=== PATIENT | male | born 1950 | race African-American/Black ===

== ENCOUNTER 2018-08-29 12:00 | Inpatient (IN) | payer MEDICARE, MEDICAID ==
--- NOTE | 2018-08-29 12:27 | ED ---
Respiratory - HPI Summary HPI Summary: This patient is a 68 year old M presenting to ED with a chief complaint of SOB since 2 days ago. The patient rates the pain 0/10 in severity. Symptoms aggravated by nothing. Symptoms alleviated by nothing. Patient reports productive cough, chest congestion, and CP secondary to cough. He is not sure if he had a fever.He was previously dx with the flu. Patient did not get his flu shot. PMHx of HTN (did not take his medications this morning). - History of Current Complaint Chief Complaint: EDShortnessOfBreath Stated Complaint: SOB Time Seen by Provider: 08/29/18 12:08 Hx Obtained From: Patient Onset/Duration: Sudden Onset, Lasting Days - since 2 days ago, Still Present Timing: Constant Current Severity: None Pain Intensity: 0 Character: Cough (Productive) Aggravating Factor(s): Nothing Alleviating Factor(s): Nothing Associated Signs and Symptoms: Fever, SOB, Chest Pain with Cough - Allergy/Home Medications Allergies/Adverse Reactions: Allergies Allergy/AdvReac Type Severity Reaction Status Date / Time ibuprofen [From Motrin] Allergy Agitation Verified 08/29/18 12:07 Home Medications: Home Medications Lisinopril/HCTZ 20/25(NF) [Zestoretic 20/25(NF)] 1 tab PO DAILY 08/29/18 [ History Confirmed 08/29/18] Prazosin CAP* [Minipress CAP*] 1 mg PO DAILY 08/29/18 [History Confirmed ] PMH/Surg Hx/FS Hx/Imm Hx Endocrine/Hematology History: Reports: Other Endocrine/Hematological Disorders - (right) adrenal mass Cardiovascular History: Reports: Hx Hypertension - meds Respiratory History: Reports: Hx Sleep Apnea - evaluation for 12/2013, Other Respiratory Problems/Disorders - ex-smoker GI History: Reports: Other GI Disorders - hx inguinal hernia repair History: Reports: Other Problems/Disorders - hx UTI's Neurological History: Reports: Other Neuro Impairments/Disorders - 05/2011 bilateral subdural hematoma evac d/t trauma Psychiatric History: Reports: Other Psychiatric Issues/Disorders - hx cocaine abuse - Surgical History Surgery Procedure, Year, and Place: 06/2011- (left) inguinal hernia repair, ( right) inguinal hernia repair as a child. Ozone hole surgery d/t subdural hematoma. HIP REPLACEMENT Infectious Disease History: No Infectious Disease History: Denies: History Other Infectious Disease, Traveled Outside the [place] in Last 30 Days - Family History Known Family History: Positive: Hypertension, Diabetes - Social History Alcohol Use: Occasionally Substance Use Type: Reports: None Smoking Status (MU): Current Every Day Smoker Type: Cigarettes, Cigars Amount Used/How Often: 1/2 PPD Review of Systems Positive: Chest Pain - secondary to cough Positive: Shortness Of Breath, Cough - productive, Other - chest congestion All Other Systems Reviewed And Are Negative: Yes Physical Exam - Summary Physical Exam Summary: VITAL SIGNS: Reviewed. GENERAL: Patient is a well-developed and nourished MALE who is lying comfortable in the stretcher. Patient is not in any acute respiratory distress. HEAD AND FACE: No signs of trauma. No ecchymosis, hematomas or skull depressions. No sinus tenderness. EYES: PERRLA, EOMI x 2, No injected conjunctiva, no nystagmus. EARS: Hearing grossly intact. Ear canals and tympanic membranes are within normal limits. MOUTH: Oropharynx within normal limits. NECK: Supple, trachea is midline, no adenopathy, no JVD, no carotid bruit, no c- spine tenderness, neck with full ROM. CHEST: Symmetric, no tenderness at palpation LUNGS: No wheezing or crackles. Decreased breath sounds on the left. CVS: Regular rate and rhythm, S1 and S2 present, no murmurs or gallops appreciated. ABDOMEN: Soft, non-tender. No signs of distention. No rebound no guarding, and no masses palpated. Bowel sounds are normal. EXTREMITIES: FROM in all major joints, no edema, no cyanosis or clubbing. NEURO: Alert and oriented x 3. No acute neurological deficits. Speech is normal and follows commands. SKIN: Dry and warm Triage Information Reviewed: Yes Vital Signs On Initial Exam: Initial Vitals Temp Pulse Resp BP Pulse Ox 99.2 F 88 20 187/104 96 08/29/18 12:02 08/29/18 12:02 08/29/18 12:02 08/29/18 12:02 08/29/18 12:02 Vital Signs Reviewed: Yes Diagnostics - Vital Signs Vital Signs Temp Pulse Resp BP Pulse Ox 08/29/18 12:02 99.2 F 88 20 187/104 96 - Laboratory Result Diagrams: 08/29/18 12:39 08/29/18 12:39 Lab Statement: Any lab studies that have been ordered have been reviewed, and results considered in the medical decision making process. - Radiology CXR Radiology Interpretation Completed By: Radiologist Summary of Radiographic Findings: Alveolar consolidation at the LEFT mid to lower lung zone with moderately large partially loculated appearing LEFT pleural effusion. The differential includes pneumonia with parapneumonic effusion as well as central mass with postobstructive pneumonitis. Consider contrast-enhanced CT for further assessment. Dr. Alcaraz has reviewed this radiology report. - EKG 1232 Cardiac Rate: NL - 83 BPM EKG Rhythm: Sinus Rhythm Summary of EKG Findings: No ST elevations, normal axis. Disposition - Course Assessment/Plan: Patient is a 68-year-old male who presents to the emergency department with a chief complaint of having shortness of breath and productive cough. The patients reports that he is been having fevers. In the ED course the patient is tachycardic and hypertensive. Patient had a temperature 100.1. Patient was given IV fluids. Blood work without any significant abnormality except for glucose of 108, CK-MB of 6.9 and CRP of 14.58. Influenza A and B is negative. CXR IMPRESSION: #. Alveolar consolidation at the LEFT mid to lower lung zone with moderately large. partially loculated appearing LEFT pleural effusion. #. The differential includes pneumonia with parapneumonic effusion as well as central mass with postobstructive pneumonitis. Consider contrast- enhanced CT for further assessment. Hest CT impression: #. The primary abnormality is a large grossly water density LEFT pleural effusion with severe compressive atelectasis of the LEFT lung. No compelling evidence for pneumonia. No pulmonary or endobronchial mass evident however atelectasis limits assessment. #. Further interval enlargement of RIGHT adrenal mass concerning for neoplasm. A primary adrenal lesion is favored over a metastasis given absence of additional mass lesions within the [id number]. In the ED course the patient was placed on Zosyn. At this point I discussed my physical exam and findings with Dr. Segura is feeling somewhat accepted patient for admission. At this point the patient is hemodynamically stable alert and oriented 3. - Differential Dx - Cardiopulmonary Differential Diagnoses - Cardiopulmonary: Other - PNA, pleural effusion - Diagnoses Provider Diagnoses: PNA (pneumonia), Pleural effusion, Adrenal mass - Physician Notifications Discussed Care Of Patient With: Avery Segura Time Discussed With Above Provider: 13:40 Instructed by Provider To: Admit As Inpatient Discharge - Sign-Out/Discharge Documenting (check all that apply): Patient Departure - admit Patient Received Moderate/Deep Sedation with Procedure: No - Discharge Plan Condition: Stable Disposition: ADMITTED TO [facility] - Billing Disposition and Condition Condition: STABLE Disposition: Admitted to [facility] - Attestation Statements Document Initiated by Jebe: Yes Documenting Scribe: Crescencio Eaton Provider For Whom Scribe is Documenting (Include Credential): Truong Alcaraz MD Scribe Attestation: Crescencio Willson, scribed for Truong Alcaraz MD on 08/29/18 at 1847. Scribe Documentation Reviewed: Yes Provider Attestation: The documentation as recorded by the Crescencio prado accurately reflects the service I personally performed and the decisions made by Truong brooks MD Status of Scribe Document: Viewed
[2018-08-29] MEDS ORDERED: Metoprolol Tartrate TAB* 25 MG PO ONE (12:40)
[2018-08-29] MEDS ORDERED: cloNIDine TAB* 0.1 MG PO ONE (12:40)
[2018-08-29 12:49] LABS: Hematocrit 42 % (42-52); Hemoglobin 13.7 g/dl (14.0-18.0); Mean Corpuscular HGB Conc 33 g/dl (31-36); Mean Corpuscular Hemoglobin 29 pg (27-31); Mean Corpuscular Volume 88 fL (80-94); Mean Platelet Volume 8.7 fL (7.4-10.4); Platelet Count 209 10^3/ul (150-450); Red Blood Count 4.77 10^6/ul (4.00-5.40); Red Cell Distribution Width 15 % (10.5-15); White Blood Count 5.1 10^3/ul (3.5-10.8)
[2018-08-29 12:54] LABS: Influenza A Molecular NEGATIVE (Negative); Influenza B Molecular NEGATIVE (Negative)
[2018-08-29] MEDS ORDERED: Piperacillin/Tazobac ADVAN(*) 3.375 GM in NS 0.9% 100 ML* 100 ML IVPB ONE (12:58)
[2018-08-29 13:07] LABS: Albumin 4.1 g/dL (3.2-5.2); Albumin/Globulin Ratio 1.3 (1-3); BUN/Creatinine Ratio 16.5 (8-20); C Reactive Protein 14.58 mg/L (<8.01); EGFR African American 108.1 (>60); EGFR Non-African American 89.4 (>60); Globulin 3.2 g/dL (2-4); Potassium 3.9 mmol/L (3.5-5.0); Total Bilirubin 0.6 mg/dL (0.2-1.0); Total Protein 7.3 g/dL (6.4-8.9)
[2018-08-29 13:08] LABS: Troponin I 0.01 ng/mL (<0.04)
[2018-08-29 13:09] LABS: ABS Basophils 0.1 10^3/ul (0-0.2); ABS Eosinophils 0.1 10^3/ul (0-0.6); ABS Lymphocytes 1.6 10^3/ul (1.0-4.8); ABS Monocytes 0.7 10^3/ul (0-0.8); ABS Neutrophils 2.6 10^3/ul (1.5-7.7); ABS Nucleated RBC 0 10^3/ul; Eosinophil % 2.6 %; Large Platelets Present; Lymphocyte % 31.9 %; Nucleated Red Blood Cells % 0.2
[2018-08-29 13:10] LABS: CKMB ng/mL 6.9 ng/mL (0.6-6.3)
[2018-08-29] MEDS ORDERED: Iohexol 300* (CONTRAST) 10 ML SDV IV ONE (13:46)
[2018-08-29] MEDS ORDERED: Benzonatate CAP* 100 MG PO PRN (14:02)
[2018-08-29] MEDS ORDERED: Acetaminophen TAB* 325 MG PO PRN (14:02)
[2018-08-29] MEDS ORDERED: Ondansetron INJ* 2 MG/ML VIAL IV PRN (14:02)
[2018-08-29] MEDS ORDERED: Lisinopril/HCTZ 20/25(NF) TAB PO SCH (14:08)
[2018-08-29] MEDS ORDERED: Vancomycin per Pharmacy* NOTE FOLLOW UP SCH (15:00)
[2018-08-29] MEDS ORDERED: Hydrochlorothiazide TAB* 25 MG PO SCH (16:00)
[2018-08-29] MEDS ORDERED: Vancomycin(*) 1,500 MG in NS 0.9% 250 ML* 250 ML IVPB ONE (16:00)
[2018-08-29 16:14] LABS: Body Fluid Source Pleural Fluid
[2018-08-29 17:08] LABS: Body Fluid Mono 7 %
[2018-08-29 17:42] LABS: Urine Appearance Clear; Urine Bacteria Absent (Absent); Urine Bilirubin Negative (Negative); Urine Blood Negative (Negative); Urine Color Yellow; Urine Glucose Negative (Negative); Urine Ketones Negative (Negative); Urine Nitrite Negative (Negative); Urine Protein Negative (Negative); Urine Red Blood Cell Trace(0-2/hpf) (Absent); Urine Specific Gravity 1.049 (1.010-1.030); Urine Squamous Epithelial Cell Present (Absent); Urine Urobilinogen Negative (Negative); Urine White Blood Cell 1+(6-10/hpf) (Absent)
[2018-08-29] MEDS: Prazosin CAP* 1 MG PO SCH (18:25)
[2018-08-29] MEDS: Lisinopril TAB* 10 MG PO SCH (18:25)
--- NOTE | 2018-08-29 21:55 | PN ---
Hospitalist Progress Note Date of Service: 08/29/18 Thoracentesis performed on patient by Dr Seo. Large volume grossly bloody fluid removed. Concern for TB, Placed on Airborne precautions and AFB stain on pleural fluid and sputum ordered when available. Quantiferon Gold Testing ordered. Patient's Father of Mesothelioma, Patient has no known exposure to asbestos. Discussed with Dr. Seo who recommended against Chest Tube until TB ruled out. Repeat CXR shows decreased size in Pleural Effusion and atalectasis. Continue antibiotics pending ID consultation.
[2018-08-29] MEDS ORDERED: Heparin VIAL(*) 5000 UNITS/ML VIAL (FIVE THOUSAND) SUBCUT SCH (22:00)
[2018-08-29] MEDS: cefTRIAXone(*) 1 GM in NS 0.9% 50 ML* 50 ML IVPB SCH (22:08)
[2018-08-29] MEDS: guaiFENesin ER TAB 600 MG PO SCH (22:09)
[2018-08-29] MEDS: Metoprolol Tartrate TAB* 25 MG PO SCH (22:09)
--- NOTE | 2018-08-29 23:36 | HP ---
CC: Dr. Prudence Greer; Dr. Chika Seo * ADMISSION HISTORY AND PHYSICAL: DATE OF ADMISSION: 08/29/18 PRIMARY CARE PROVIDER: Dr. Prudence Greer. MY ATTENDING WHILE IN THE HOSPITAL: Dr. Avery Segura.* (DICTATED BY SOURAV WATTS) CONSULTING TELECOMMUNICATIONS SPECIALIST: Dr. Chika Seo. CHIEF COMPLAINT: Shortness of breath x3 days. HISTORY OF PRESENT ILLNESS: Mr. Ennis is a 68-year-old male with past medical history significant for pheochromocytoma with known adrenal mass, history of positive tuberculin skin test in the with treatment for latent tuberculosis , hypertension, who presents to the emergency department with severe shortness of breath, particularly with exertion as well as feeling of chest fullness since the evening of 08/26/18. The patient approximately a month ago had a flu- like syndrome with body aches, wheezing, and shortness of breath , which self resolved. The patient did not have treatment for this nor did he have his flu shot for this year. The patient felt better approximately a week between when he had the flu and when he began to develop other symptoms. The patient over that time period has lost approximately 10 pounds, but he states his weight fluctuates due to his active work schedule. The patient does get the flu relatively frequently. The patient has generally been in his normal state of health. The patient was incarcerated in the . The patient does travel also frequently around the [facility] and recently to [place] for work. The patient has a known pheochromocytoma. The patient has been seen by [employer] consultant, recommended medical management and he has been referred for excision previously; however, he has declined this given a distrust for the medical system. The patient had been having a cough for the last 2 days, which is intermittently productive of clear sputum. No hemoptysis or color material in his sputum. The patient was previously treated with INH for 1 year in the . The patient has had some issues over the past 2 days with fevers, chills , night sweats. The patient has a history of recurrent UTIs but has never had this evaluated by urologist. The patient did not take his blood pressure medication this morning and has high blood pressure but no chest pain. The patient states that his main complaint that brought him to the hospital was that whenever he leans forward, he feels a pressure on the left upper quadrant of his abdomen. In the emergency department, the patient was significantly hypertensive with blood pressures high at 200/138. The patient was afebrile, nontachycardic, and nonhypoxic. The patient had a relatively normal laboratory data; however, his chest x-ray showed a large left-sided pleural effusion and a followup chest CT showed almost total obscuration of his left lung without compelling evidence for pneumonia or mass as well as continued interval enlargement of his right adrenal mass compared to CT from 2016. The patient had known small pulmonary nodules on CT in 2016. Due to the concern for large pulmonary mass as well as possible pneumonia, we were asked to evaluate the patient for admission to the hospital. PAST MEDICAL HISTORY: Pheochromocytoma, history of traumatic subdural hematoma drainage in 2010, recurrent UTIs, history of cocaine abuse, history of treated latent tuberculosis in the , hypertension. PAST SURGICAL HISTORY: Hernia repair in 2012 as a child, colonoscopy in 2013, hip replacement. MEDICATIONS: The patient does not take any medications. On the day of admission: 1. Prazosin 1 mg p.o. daily. 2. Lisinopril and hydrochlorothiazide 20/25 one tab p.o. daily. 3. Naproxen 2 tabs p.o. daily. 4. The patient was also prescribed amlodipine per his primary care provider's notes, but he has not endorsed taking this. ALLERGIES: IBUPROFEN. FAMILY HISTORY: The patient's mother of complications from pneumothorax. The patient's father of mesothelioma. The patient had 6 siblings; a brother who of dementia related to chronic head trauma, a brother who of an RI in , a brother who of cirrhosis, a sister who of breast cancer, and a sister who of CHF. The patient has 1 remaining sibling who is alive and well. SOCIAL HISTORY: The patient has a [id number] history of smoking, but quit 13 years before this evaluation. The patient drinks 1 to 2 beers a week. The patient has a history of cocaine abuse. The patient denies other illicit drug use or recent drug use. 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 The patient was incarcerated in the . The patient is not , has 1 daughter. REVIEW OF SYSTEMS: A 14-point review of systems was reviewed and is negative except as above in the HPI. PHYSICAL EXAMINATION GENERAL: The patient is a 68-year-old male who appears stated age, sitting comfortably in bed, in no acute distress. VITAL SIGNS: At the time of evaluation, temperature 98.4, pulse rate 87, respiratory rate 19, oxygen saturation 94% on room air, blood pressure 194/117. HEENT: Head: Normocephalic, atraumatic. Sclerae anicteric. No conjunctival injection. Oral mucosa is moist. No pharyngeal erythema, discharge, or exudate. NECK: Supple, nontender. No lymphadenopathy. No carotid bruits auscultated. No JVD. RESPIRATORY: No adventitious lung sounds in the right lung. Absent breath sounds in the left lung except for the upper lobe where they are diminished with slight rhonchi. CARDIAC: Regular rate and rhythm. No clicks, murmurs, gallops, or rubs. Pulses 2+ in the bilateral dorsalis pedis, posterior tibial, and radial areas. ABDOMEN: Soft, nontender, nondistended. Bowel sounds present. Normoactive in all 4 quadrants. No hepatosplenomegaly. No abdominal bruits auscultated. No hepatojugular reflex. GENITOURINARY: No suprapubic or CVA tenderness. NEURO: Cranial nerves II through XII intact. No focal deficits. Alert and oriented x3. PSYCHIATRIC: Pleasant and cooperative. SKIN: Clean, dry, intact. No rash. DIAGNOSTIC STUDIES/LAB DATA: White blood cell count 5.1, hemoglobin 13.7, hematocrit 42, platelet count 209. Sodium 139, potassium 3.9, chloride 106, carbon dioxide 24, anion gap 9, BUN 14, creatinine 0.85, glucose 108. Lactic acid 0.9, calcium 9.0. Bilirubin 0.6, AST 36, ALT 22, alkaline phosphatase 67. Creatine kinase 189, CK-MB 6.9. Troponin I 0.01. CRP 14.08. BNP 17. Protein 7.3, albumin 3.4, globulin 3.2. Influenza A and B negative. Chest x-ray shows alveolar consolidation in the left mid to lower lung zones with moderately large loculated appearing left pleural effusion. Differential includes pneumonia with parapneumonic effusions, central mass with postobstruction pneumonitis. Consider contrast enhanced CT for further assessment. Electrocardiogram shows normal sinus rhythm, left axis deviation, no ST segment elevation or depression, unremarkable T waves, possible left atrial enlargement compared to previous exam in 2011. There is no significant difference. Chest CT read as primary abnormality is grossly water density of the left pleural effusion with severe compression atelectasis to the left lung. No compelling evidence for pneumonia. No pulmonary or endobrachial mass evident; however, atelectasis limits assessment further, interval enlargement of the right adrenal mass concerning for neoplasm or primary adrenal lesions less likely metastasis given the absence of additional mass lesions within the field of view. ASSESSMENT AND PLAN/IMPRESSION: Mr. Ennis is a 68-year-old male with past medical history significant for pheochromocytoma, history of latent tuberculosis , status post treatment, high blood pressure, who recently had the flu and now presents with a large pleural effusion with fever and chills as well as cough and shortness of breath. The patient will be admitted to the hospital for concern for pneumonia versus malignancy versus transudative effusion. The patient will be admitted to the hospital for antibiotic treatment and further evaluation of his pleural effusion. 1. Shortness of breath, pleural effusion. The patient has a recent history of flu and is thereby predisposed to bacterial pneumonia, particularly with methicillin- resistant Staphylococcus aureus. We will await study. The patient was given Zosyn while in the hospital. We will give vancomycin and start the patient on ceftriaxone and vancomycin given the patient's lack of compelling evidence for pneumonia and this can likely be discontinued pending Gram stain and fluid analysis on the pleural effusion. We will also send this for acid-fast testing as the patient will also obtain a Gram stain, which will sent for acid-fast testing. The patient has a history of latent tuberculosis which was treated, but given that he was incarcerated, the patient may have had a multi-drug resistant organism. Infectious disease consultation may be indicated if there is no further concern for tuberculosis after pleural fluid analysis. Given the patient's adrenal tumor and pleural effusion as well as known pulmonary nodules, there is concern that this may be a malignant effusion. Again, pleural fluid analysis is pending and further evaluation will be based on this, but oncology and endocrinology evaluation may be indicated. The patient has no sign of heart failure or cirrhosis. His kidney function and liver function tests are normal. There is a low suspicion this is a transudative effusion, but further evaluation including a transthoracic echocardiogram may be indicated if that is the case. 2. Pheochromocytoma, hypertension: The patient is currently on prazosin. The patient was previously seen by an [employer] consultant, who recommended beta blockade if the patient had continuing issues with his high blood pressure, which he has been. The patient is on prazosin, hydrochlorothiazide, and lisinopril. We will resume these as he has not taken them yet today and add on metoprolol, which he was given a low dose of in the emergency department. The patient's blood pressure will be monitored closely for overcorrection. The patient should be seen in consultation by Endocrinology if he continues to be hypertensive and will need outpatient evaluation for resection of this tumor. 3. History of recurrent urinary tract infection: Urinalysis is pending. It is unlikely to be related to the patient's presentation. The patient has no urinary symptoms. 4. DVT prophylaxis: After the patient's procedure, assume there is no hemothorax, we will treat the patient with heparin subcu. 5. FEN: The patient will have a heart healthy diet without caffeine and has no indication for fluids. 6. Disposition: The patient is admitted inpatient to the hospital for evaluation of pleural effusion. TIME SPENT: Approximately 90 minutes was spent on the admission of this patient , 30 of which was spent [id number] with the patient, obtaining history and physical and discussion of treatment plan. The plan was discussed with my attending Dr. Avery Segura, and he is in agreement. SOURAV WATTS [id number]/CPS #: [id number] MTDD
--- NOTE | 2018-08-29 23:52 | CONS ---
PULMONARY CONSULTATION REPORT: DATE OF CONSULT: 08/29/18 REQUESTED BY: SOURAV De Jesus. REASON FOR CONSULTATION: Evaluation of pleural effusion. HISTORY OF PRESENT ILLNESS: The patient is a 68-year-old male, former smoker, with a history of latent TB, who presents to the emergency room for evaluation of worsening shortness of breath. The patient reports not feeling well for the past month. He has been having flu-like illness and reports sick contacts. The patient has been having worsening shortness of breath that gradually worsened and he decided to come into the emergency room for further evaluation. The patient also reports productive cough with minimal sputum production. The patient also reports feeling congested in the chest and crackly in the left chest. The patient also reports chest pain as a result of the cough. The patient also reports loss of weight and appetite recently. The patient reports poor oral intake. The patient reports some night sweats, which he attributed to having the room very cold. The patient reports no contacts with TB recently. His last travel was to [place]. 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 Denies any occupational exposures. History of cocaine abuse in the past, has been abstinent for many years. The patient had a chest x-ray in the emergency room. I have personally reviewed chest x-ray, which showed evidence of large left pleural effusion. The patient had a CT scan of the chest for further evaluation. I personally reviewed CT scan of the chest. The patient with large left pleural effusion with compressive atelectasis. No obvious endobronchial lesions were noted. No significant mediastinal or hilar adenopathy was noted. He was noted to have right adrenal mass, which has increased in size from before. He has a history of pheochromocytoma. PAST MEDICAL HISTORY: 1. Right adrenal mass, diagnosed as pheochromocytoma. 2. Hypertension. 3. Sleep apnea. 4. Inguinal hernia repair in the past. 5. History of prior tobacco and cocaine abuse. 6. Subdural hematoma in 2010. 7. Left inguinal hernia and right hernia repair in 2011. 8. Bur hole surgery for subdural hematoma. 9. Hip replacement. ALLERGIES: IBUPROFEN. FAMILY HISTORY: Hypertension, diabetes, mesothelioma in father SOCIAL HISTORY: Former smoker, quit many years ago, [id number] smoking history. Occasional alcohol intake. Previous cocaine abuse, has not been using recently. REVIEW OF SYSTEMS: All 14-systems reviewed and as per HPI. PHYSICAL EXAM: The patient in bed, in no apparent distress. Vital Signs: Temperature 98.4, pulse 62 beats per minute, respiratory rate 21 per minute, O2 sat 98% on room air, blood pressure 159/111. HEENT: Pupils are equal and reactive to light. Mucous membranes moist. Lungs: Significantly diminished air entry on the left side. Cardiovascular: S1, S2 present, regular. Abdomen : Soft, nontender, nondistended. Bowel sounds present. Extremities: Normal range of motion. Skin: No rash or bruises. Neuro: Alert, awake, oriented. No focal deficits. DIAGNOSTIC STUDIES/LAB DATA: Hemoglobin 13.7, hematocrit 42, WBC count 5.1, platelet count 209. Sodium 139, potassium 3.9, chloride 106, bicarb 24, BUN 14 , creatinine 0.85, glucose 108, CRP 14.58. BNP within normal limits. LFTs within normal limits. Total protein within normal limits. Influenza A and B negative. Chest x-ray and CT scan of the chest as described above in HPI. IMPRESSION/RECOMMENDATIONS: 68-year-old male with a history of latent tuberculosis, incarcerated in the past, was treated for latent tuberculosis with INH for 9 months, with nonspecific symptoms recently with weight loss, loss of appetite, night sweats, low-grade fevers, shortness of breath and cough , found to have a large left pleural effusion. Under ultrasound evaluation, he is noted to have dense effusion, which appeared to be very cellular. Performed thoracentesis at bedside with removal of 1800 mL of dark bloody fluid. The patient tolerated the procedure well. The fluid is grossly bloody in appearance. The patient reported minor trauma to the left side recently. Did not get any evaluation. Unclear etiology of the effusion, infectious versus neoplastic. Tuberculosis in differential. Malignancy also very likely, mesothelioma or primary lung cancer in the differential. The patient's father has a history of mesothelioma. The patient does not give an exposure to asbestos. The patient is empirically started on broad-spectrum antibiotics. He is under respiratory isolation for possible tuberculosis. He will also have sputum sent out for AFB. I have sent pleural fluid for all the testing including adenosine deaminase and AFB cultures. Cytology was also ordered on pleural fluid. Will obtain chest x-ray to evaluate for residual pleural fluid and to rule out pneumothorax. The patient appears comfortable after the procedure and reports improvement in breathing. Will get infectious disease evaluation. Further recommendations would depend upon the pleural fluid characteristics. Thank you for allowing me to participate in the care of your patient. Above recommendations were discussed with SOURAV De Jesus. [id number]/[facility] #: [id number] ALDA
--- NOTE | 2018-08-30 04:00 | PRO ---
THORACENTESIS REPORT: DATE OF PROCEDURE: 08/29/18 PROCEDURE PERFORMED: Ultrasound-guided thoracentesis on the left side. PREPROCEDURAL DIAGNOSIS: Large left pleural effusion. ANESTHESIA: Local anesthesia with 1% lidocaine. PROCEDURE IN DETAIL: Informed consent was obtained from the patient prior to the procedure after the risks and benefits were thoroughly explained. The patient was sitting up and leaning forwards. Time-out was performed and agreed on my attending staff prior to the procedure. Strict aseptic precautions and barrier techniques were utilized. CareFusion 5-Austrian thoracentesis catheter was utilized. Area was disinfected with chlorhexidine. Area was marked with ultrasound and was covered with a sterile drape. A CareFusion 5-Austrian thoracentesis catheter was utilized. 1% lidocaine was instilled between the ribs intradermally subcutaneously down into the pleural space taking precautions. A #11-scalpel blade was utilized to make stab incision. The 5- Austrian catheter was then inserted under manual suction taking precautions. Catheter was left in place and needle was removed. A 1800 mL of dark-bloody fluid was removed under manual suction. Catheter was then removed. Sterile Band -Aid was applied on to the area. The patient tolerated the procedure well. [id number]/[facility] #: [id number] [facility]'S HOSPITALLashonda
[2018-08-30] MEDS: Vancomycin(*) 1,250 MG in NS 0.9% 250 ML* 250 ML IVPB SCH ×2 (06:07→17:28)
[2018-08-30] MEDS: Prazosin CAP* 1 MG PO SCH (08:24)
[2018-08-30] MEDS: guaiFENesin ER TAB 600 MG PO SCH ×2 (08:24→21:29)
[2018-08-30] MEDS: Lisinopril TAB* 10 MG PO SCH (08:31)
[2018-08-30] MEDS: Metoprolol Tartrate TAB* 25 MG PO SCH ×2 (08:31→21:28)
[2018-08-30 10:57] LABS: Hematocrit 42 % (42-52); Hemoglobin 13.6 g/dl (14.0-18.0); Mean Corpuscular HGB Conc 33 g/dl (31-36); Mean Corpuscular Hemoglobin 29 pg (27-31); Mean Corpuscular Volume 88 fL (80-94); Mean Platelet Volume 8.8 fL (7.4-10.4); Platelet Count 213 10^3/ul (150-450); Red Blood Count 4.71 10^6/ul (4.00-5.40); Red Cell Distribution Width 16 % (10.5-15)
[2018-08-30 11:13] LABS: BUN/Creatinine Ratio 16.5 (8-20); Calcium 8.7 mg/dL (8.6-10.3); EGFR Non-African American 82.6 (>60); Magnesium 1.7 mg/dL (1.9-2.7)
[2018-08-30 11:14] LABS: ABS Basophils 0.1 10^3/ul (0-0.2); ABS Eosinophils 0.2 10^3/ul (0-0.6); ABS Lymphocytes 2.1 10^3/ul (1.0-4.8); ABS Monocytes 0.8 10^3/ul (0-0.8); ABS Nucleated RBC 0 10^3/ul; Eosinophil % 2.7 %; Large Platelets Present; Nucleated Red Blood Cells % 0.1
--- NOTE | 2018-08-30 16:53 | PN ---
Subjective Date of Service: 08/30/18 Interval History: Patient's breathing much better today. Denies chest pain. Never had active TB, but took 1 year INH for [facility] PPD in [facility]. Had lower thoracic back pain several weeks ago, PCP ordered CT scan, not completed. Has not had known phenochromocytoma removed due to other priorities w/ job. Family History: Unchanged from Admission Social History: Unchanged from Admission Past Medical History: Unchanged from Admission Objective Active Medications: Acetaminophen (Tylenol Tab*) 650 mg PO Q6H PRN PRN Reason: FEVER/PAIN Benzonatate (Tessalon Cap*) 100 mg PO BID PRN PRN Reason: COUGH Guaifenesin (Mucinex*) 1,200 mg PO BID [facility] Last Admin: 08/30/18 08:24 Dose: 1,200 mg Ceftriaxone Sodium 1 gm/ (Sodium Chloride) 50 mls @ 200 mls/hr IVPB Q24H [facility] Last Admin: 08/29/18 22:08 Dose: 200 mls/hr Vancomycin HCl 1,250 mg/ (Sodium Chloride) 250 mls @ 166.667 mls/hr IVPB Q12H [facility] Last Admin: 08/30/18 06:07 Dose: 166.667 mls/hr Lisinopril (Prinivil Tab*) 20 mg PO DAILY [facility] Last Admin: 08/30/18 08:31 Dose: 20 mg Metoprolol Tartrate (Lopressor Tab*) 12.5 mg PO Q12HR [facility] Last Admin: 08/30/18 08:31 Dose: 12.5 mg Ondansetron HCl (Zofran Inj*) 4 mg IV Q6H PRN PRN Reason: NAUSEA Prazosin HCl (Minipress Cap*) 1 mg PO DAILY [facility] Last Admin: 08/30/18 08:24 Dose: 1 mg Vital Signs - 8 hr 08/30/18 08/30/18 08/30/18 09:54 12:30 16:10 Temperature 36.4 C 36.7 C Pulse Rate 77 63 63 Respiratory 20 14 Rate Blood Pressure 153/79 146/79 154/89 (mmHg) O2 Sat by Pulse 96 97 Oximetry Oxygen Devices in Use Now: Nasal Cannula Appearance: looks well Eyes: No Scleral Icterus Ears/Nose/Mouth/Throat: Clear Oropharnyx Neck: NL Appearance and Movements; NL JVP Respiratory: Symmetrical Chest Expansion and Respiratory Effort, - - absent BS LT base Cardiovascular: NL Sounds; No Murmurs; No JVD, RRR Abdominal: NL Sounds; No Tenderness; No Distention Lymphatic: No Cervical Adenopathy Skin: No Rash or Ulcers Neurological: Alert and Oriented x 3 Lines/Tubes/Other Access: Clean, Dry and Intact Peripheral IV Nutrition: Taking PO's Result Diagrams: 08/30/18 10:49 08/30/18 10:49 Additional Lab and Data: Laboratory Tests 08/29/18 08/29/18 08/29/18 12:39 12:42 15:30 B-Natriuretic Peptide 17 Fluid Source Pleural fluid Fluid Volume 10 Fluid Color Red Fluid Appearance Bloody Fluid WBC 1035 Fluid RBC [id number] Fluid Tot Cell Count 100 Fluid Neutrophils 21 Fluid Lymphocytes 62 Fluid Monocytes 7 Fluid Eosinophils 10 Influenza A (Rapid) Negative Influenza B (Rapid) Negative 08/30/18 10:49 Magnesium 1.7 L Microbiology and Other Data: Microbiology 08/29/18 13:45 Aerobic Blood Culture - Preliminary Blood Venous No Growth Day 1 Anaerobic Blood Culture - Preliminary No Growth Day 1 08/29/18 12:39 Aerobic Blood Culture - Preliminary Blood Venous No Growth Day 1 Anaerobic Blood Culture - Preliminary No Growth Day 1 08/29/18 15:30 Gram Stain - Final Pleural Fluid Body Fluid Culture - Preliminary No Growth Day 1 08/29/18 17:30 Legionella Urinary Antigen - Final Urine Negative Legionella Antigen Streptococcus pneumoniae Ag Screen - Final Negative S. pneumo Antigen 08/29/18 15:30 Acid Fast Bacilli Smear - Final Body Fluid - Pulmonary 08/30/18 04:30 Nasal Screen MRSA (PCR) - Final Nasal Mrsa Not Detected 08/29/18 12:27 Influenza Types A,B Antigen - Final Nasopharyngeal Specimen received for Influenza A/B Molecular testing Diagnostic Imaging: Repeat CXR: decreased effusion. Assess/Plan/Problems-Billing Assessment: 68 year old admitted with dyspnea, large bloody LT pleural effusion - Patient Problems (1) Pleural effusion Current Visit: Yes Status: Acute Priority: High Code(s): J90 - PLEURAL EFFUSION, NOT ELSEWHERE CLASSIFIED SNOMED Code(s): 96538390 Comment: -Effusion was bloody, does not appear to be transudate -Differential includes TB, parapneumonic effusion, malignancy. -Will continue airborne precautions and await Quantiferon, Sputum AFB, cultures from fluid -Continue vancomycin and ceftriaxone for CAP, post-flu staph -Will consult with ID tomorrow. (2) Pheochromocytoma Current Visit: Yes Status: Acute Priority: Medium Code(s): D35.00 - BENIGN NEOPLASM OF UNSPECIFIED ADRENAL GLAND SNOMED Code(s): 724904788 Comment: -Blood pressure in tolerable range -discussed barriers to care with patient (3) DVT prophylaxis Current Visit: Yes Status: Acute Priority: Low Code(s): DTG6259 - SNOMED Code(s): 207718810 Comment: Will start SCDs Status and Disposition: Inpatient, requires respiratory isolation
[2018-08-30] MEDS: cefTRIAXone(*) 1 GM in NS 0.9% 50 ML* 50 ML IVPB SCH (17:08)
[2018-08-31] MEDS: Vancomycin(*) 1,250 MG in NS 0.9% 250 ML* 250 ML IVPB SCH ×2 (05:00→17:50)
[2018-08-31] MEDS ORDERED: hydrALAZINE IV* 20 MG/ML VIAL IV SLOW PU ONE (05:10)
[2018-08-31] MEDS: guaiFENesin ER TAB 600 MG PO SCH ×2 (08:05→22:45)
[2018-08-31] MEDS: Prazosin CAP* 1 MG PO SCH ×2 (08:08→22:45)
[2018-08-31] MEDS: Metoprolol Tartrate TAB* 25 MG PO SCH ×2 (08:08→22:44)
[2018-08-31] MEDS: Lisinopril TAB* 10 MG PO SCH (08:08)
--- NOTE | 2018-08-31 16:08 | CONS ---
CONSULTATION REPORT: DATE OF ADMISSION: 08/29/18 DATE OF CONSULT: 08/31/18 PRIMARY CARE PROVIDER: Dr. Prudence Greer. PROVIDER REQUESTING CONSULTATION: Dr. Avery Segura. CONSULTING SERVICE: Infectious Disease. ATTENDING PHYSICIAN: Dr. Finn Lopes * (dictated by Karmen Quintanilla NP). REASON FOR CONSULT: Large bloody pleural effusion. ASSESSMENT: 1. Large pleural effusion. The differential includes tuberculosis or malignancy. I have a low suspicion for this being tuberculosis as he was treated for latent TB in the past. He has urine antigens for legionella and S pneumoniae that were negative. Two acid-fast bacilli smears that have been negative. His sputum culture is pending and blood cultures with no growth on day 1 and day 2. Influenza A and B negative. He reports that his cough is minimal and mostly resolved. 2. Latent tuberculosis, treated with INH in the . 3. Pheochromocytoma with known adrenal mass. 4. Hypertension. PLAN: Continue to follow with the cytology for now. Continue vancomycin and ceftriaxone while we await final cytology. HISTORY OF PRESENT ILLNESS: Mr. Ennis is a 68-year-old male with past medical history significant for pheochromocytoma with known adrenal mass, history of positive PPD in the and was treated for latent TB with INH, hypertension, who presented to the emergency room with complaints of severe shortness of breath particularly with exertion that had progressed over a 2-week time period. According to Mr. Ennis, he initially had a flu-like illness back in June and had been feeling fatigued, but taking it easy and feeling depressed as he has had many people in his life pass away recently, but felt as though this was improving. Two weeks ago, he reports being able to go on his typical walks, doing 2 flight of stairs for errands. He then noticed that he was having to stop after 1 flight of stairs to catch his breath before he could finish. He also was having difficulty walking to his errands that he would typically walk to. He denies any fevers, chills. He reports fatigue, shortness of breath with exertion worsened a few days ago, but has improved. He reports arthritic pain. He reported a history of a cough that overall is improving. He last traveled out of the country in 2015, at which time he went to [place]. He reports night sweats ongoing for a while, typically between 2 and 3 a.m., waking up feeling drenched. He reports a 10-pound weight loss in approximately the last 2 weeks. He reports this is due to a decreased appetite , but states that his appetite is improving. Due to his symptoms, he presented to the emergency room for further evaluation. While in the emergency room, he was reporting left upper quadrant abdominal pain when leaning forward. He was noted to be hypertensive, afebrile. No tachycardia, no hypoxia. He had relatively normal labs. He had a chest x-ray showing a large left-sided pleural effusion with a followup chest CT showing total obscuration of the left lung without compelling evidence for pneumonia or mass. He had interval enlargement of his right adrenal mass when compared to previous CT from 2016. He had known pulmonary nodules seen on CT scan in 2016. Due to his large effusion, he was admitted to the hospital. While in the hospital, he has been afebrile. No tachycardia, no real tachypnea. Blood pressures have been hypertensive. His labs have remained unremarkable. He had a thoracentesis revealing bloody pleural fluid, wbc's of 135, rbc's of 261,000. Influenza A and B negative. Blood cultures with no growth. He had an acid-fast bacilli smear showing no acid-fast bacilli present. He had urine antigens for legionella and S. pneumoniae that were negative and no growth in urine culture. He had a second acid-fast bacilli that was negative. His sputum Gram stain showing 4+ epithelial cells, 4+ neutrophils , 1+ nucleated cells, showing 4+ gram-positive cocci in chains resembling strep and 1+ gram-negative bacilli. Sputum culture pending at this time. PAST MEDICAL HISTORY: 1. Pheochromocytoma with known adrenal mass. 2. Positive PPD with treatment for latent TB in the . 3. Hypertension. 4. Traumatic subdural hematoma. 5. Sleep apnea. PAST SURGICAL HISTORY: 1. Status post tara hole drainage of subdural hematoma. 2. Status post repair of left inguinal hernia. 3. Status post left total hip arthroplasty. MEDICATIONS: Home medications include: 1. Naproxen 2 tablets by mouth daily. 2. Prazosin 1 mg by mouth daily. 3. Lisinopril/hydrochlorothiazide 20/25 one tablet by mouth daily. Hospital medications: 1. Acetaminophen 650 mg by mouth every 6 hours as needed for fever or pain. 2. Benzonatate 100 mg by mouth twice daily as needed for cough. 3. Ceftriaxone 1 g IV every 24 hours. 4. Mucinex 1200 mg by mouth twice daily. 5. Lisinopril 20 mg by mouth daily. 6. Metoprolol tartrate 12.5 mg by mouth every 12 hours. 7. Zofran 4 mg IV every 6 hours as needed for nausea. 8. Prazosin 1 mg by mouth daily. 9. Vancomycin 1250 mg IV every 12 hours. ALLERGIES: IBUPROFEN. FAMILY HISTORY: Brother with a history of NM, father with diabetes, father with a history of mesothelioma, and a sister with a history of breast cancer. No family history of recurrent infections. SOCIAL HISTORY: He drinks 1 to 2 beers weekly. Former smoker, quitting 13 years ago. Prior to that, he had a 40-year pack a day smoking history. He denies recreational drugs. REVIEW OF SYSTEMS: I performed a 10-point review of systems. All the pertinent positives and negatives are mentioned in the history of present illness. The remaining review of systems are negative. PHYSICAL EXAM: Vital Signs: Temperature 97.9, heart rate 58, respiratory rate 22, O2 sat 99% on room air, blood pressure 182/98. General Appearance: He is alert, appears to be in no acute distress. Head: Normocephalic, atraumatic. ENT: Pupils are equal and reactive to light. Extraocular movements are intact. Mucous membranes are moist. Neck: Supple. There is no lymphadenopathy noted. Neurologically, he is alert and oriented x4. Cranial nerves II through XII are grossly intact. Moves all extremities. Cardiovascular: Regular rate and rhythm. S1, S2 present. There are no murmurs, rubs, or gallops heard. Respiratory: Lung sounds are clear, but diminished. There is no accessory muscle use. Abdomen: Bowel sounds present. Abdomen is soft, nontender, nondistended. Extremities: No lower extremity edema. DP and PT pulses are 2+ and symmetric. Musculoskeletal: No clubbing or cyanosis noted. The patient exhibits good strength in all extremities. He is able to move all joints. Psychological: Calm and cooperative. Skin: There are no rashes or abnormalities seen. DIAGNOSTIC STUDIES/LAB DATA: White blood cell count 6.0, hemoglobin 13.6, hematocrit 42, platelet count 213. Sodium 137, potassium 4.0, chloride 105, CO2 27, BUN 15, creatinine 0.91, glucose 125. CRP 14.58. Please see impressions and recommendations outlined above. Thank you for asking us to see Mr. Ennis in consultation. TIME SPENT: Time spent for this consultation was approximately 45 minutes, greater than half of that was spent with the patient discussing medications, past medical history, the events leading up to his arrival today, and performing a physical examination. The case has been reviewed with the attending, Dr. Lopes, who agrees with the plan of care. Reviewed by CHERELLE OREILLY-C 09/06/18 1325 [id number]/[facility] #: [id number] Seen, examined, discussed with David Hurtado NP; I agree with her full note above. Impression/Recommendation: 1. Exudative pleural effusion, malignancy vs less likely infection; continue coverage for community acquired pneumonia while awaiting cytology. 2. History of treated latent TB which makes TB less likely unless he was re- infected MTDD
--- NOTE | 2018-08-31 16:40 | PN ---
Subjective Date of Service: 08/31/18 Interval History: Patient feels weak today. He has been up to shower. Eating OK. Has had visitors today. Denies MÉNDEZ. Family History: Unchanged from Admission Social History: Unchanged from Admission Past Medical History: Unchanged from Admission Objective Active Medications: Acetaminophen (Tylenol Tab*) 650 mg PO Q6H PRN PRN Reason: FEVER/PAIN Benzonatate (Tessalon Cap*) 100 mg PO BID PRN PRN Reason: COUGH Guaifenesin (Mucinex*) 1,200 mg PO BID [facility] Last Admin: 08/31/18 08:05 Dose: 1,200 mg Ceftriaxone Sodium 1 gm/ (Sodium Chloride) 50 mls @ 200 mls/hr IVPB Q24H [facility] Last Admin: 08/30/18 17:08 Dose: 200 mls/hr Vancomycin HCl 1,250 mg/ (Sodium Chloride) 250 mls @ 166.667 mls/hr IVPB Q12H [facility] Last Admin: 08/31/18 05:00 Dose: 166.667 mls/hr Lisinopril (Prinivil Tab*) 20 mg PO DAILY [facility] Last Admin: 08/31/18 08:08 Dose: 20 mg Metoprolol Tartrate (Lopressor Tab*) 12.5 mg PO Q12HR [facility] Last Admin: 08/31/18 08:08 Dose: 12.5 mg Ondansetron HCl (Zofran Inj*) 4 mg IV Q6H PRN PRN Reason: NAUSEA Pharmacy Consult (Vancomycin Per Pharmacy*) 1 note FOLLOW UP .VANC PER PHARMACY [facility] Pharmacy Profile Note (Vancomycin Trough Check) 1 note FOLLOW UP .ENTER TIME ONE Stop: 08/31/18 17:31 Prazosin HCl (Minipress Cap*) 1 mg PO DAILY [facility] Last Admin: 08/31/18 08:08 Dose: 1 mg Vital Signs - 8 hr 08/31/18 08/31/18 08/31/18 10:36 12:24 13:37 Temperature 36.9 C Pulse Rate 70 Respiratory 16 Rate Blood Pressure 152/90 167/106 150/94 (mmHg) O2 Sat by Pulse 99 Oximetry Oxygen Devices in Use Now: Nasal Cannula Appearance: alert, no distress Ears/Nose/Mouth/Throat: Clear Oropharnyx Neck: No Thyroid Enlargement, Masses Respiratory: Symmetrical Chest Expansion and Respiratory Effort, - - absent BS left base 1/2 way up Cardiovascular: NL Sounds; No Murmurs; No JVD Lymphatic: No Cervical Adenopathy Neurological: Alert and Oriented x 3 Lines/Tubes/Other Access: Clean, Dry and Intact Peripheral IV Nutrition: Taking PO's Result Diagrams: 08/30/18 10:49 08/30/18 10:49 Microbiology and Other Data: Microbiology 08/30/18 17:10 Sputum Gram Stain - Final 08/30/18 17:10 Respiratory - Sputum Acid Fast Bacilli Smear - Final 08/30/18 04:30 Nasal Nasal Screen MRSA (PCR) - Final Mrsa Not Detected 08/29/18 17:30 Urine Urine Culture - Final 08/29/18 17:30 Urine Streptococcus pneumoniae Ag Screen - Final Negative Legionella Antigen Negative S. pneumo Antigen No Growth (<1,000 CFU/mL) 08/29/18 15:30 Pleural Fluid Gram Stain - Final 08/29/18 15:30 Body Fluid - Pulmonary Acid Fast Bacilli Smear - Final 08/29/18 15:30 Pleural Fluid Body Fluid Culture - Preliminary No Growth Day 2 08/29/18 13:45 Blood Venous Aerobic Blood Culture - Preliminary 08/29/18 13:45 Blood Venous Anaerobic Blood Culture - Preliminary No Growth Day 2 No Growth Day 2 08/29/18 12:39 Blood Venous Aerobic Blood Culture - Preliminary 08/29/18 12:39 Blood Venous Anaerobic Blood Culture - Preliminary No Growth Day 2 No Growth Day 2 Assess/Plan/Problems-Billing Assessment: 68 year old admitted with dyspnea, large bloody LT pleural effusion - Patient Problems (1) Pleural effusion Current Visit: Yes Status: Acute Priority: High Code(s): J90 - PLEURAL EFFUSION, NOT ELSEWHERE CLASSIFIED SNOMED Code(s): 56041844 Comment: -Effusion was bloody, does not appear to be transudate -Differential includes TB, parapneumonic effusion, malignancy. -AFB negative X2 now, can d/c airborne precautions -Consult w/ ID appreciated (2) Pheochromocytoma Current Visit: Yes Status: Acute Priority: Medium Code(s): D35.00 - BENIGN NEOPLASM OF UNSPECIFIED ADRENAL GLAND SNOMED Code(s): 768743177 Comment: -Blood pressure in tolerable range -discussed barriers to care with patient (3) DVT prophylaxis Current Visit: Yes Status: Acute Priority: Low Code(s): GDO9097 - SNOMED Code(s): 550049717 Comment: Will start SCDs (4) Pneumonia Current Visit: Yes Status: Acute Priority: Medium Code(s): J18.9 - PNEUMONIA, UNSPECIFIED ORGANISM SNOMED Code(s): 364820191 Comment: -May have pneumonia w/ parapneumonic effusion -Will continue ceftriaxone and vanco until diagnosis established. Status and Disposition: Inpatient
--- NOTE | 2018-08-31 17:01 | PN ---
Progress Note - Progress Note Date of Service: 08/31/18 - Pulmf/u note Note: Pt seen and examined at bedside Pt reports feeling better other than fatigue.Has intermittent cough, not able to cough much phleghm. Active Medications Generic Name Dose Route Start Last Admin Trade Name Freq PRN Reason Stop Dose Admin Acetaminophen 650 mg 08/29/18 14:02 Tylenol Tab* PO Q6H PRN FEVER/PAIN Benzonatate 100 mg 08/29/18 14:02 Tessalon Cap* PO BID PRN COUGH Guaifenesin 1,200 mg 08/29/18 21:00 08/31/18 08:05 Mucinex* PO 1,200 mg BID GRECIA Administration Ceftriaxone Sodium 1 gm/ 50 mls @ 200 mls/hr 08/29/18 17:30 08/30/18 17:08 Sodium Chloride IVPB 200 mls/hr Q24H GRECIA Administration Vancomycin HCl 1,250 mg/ 250 mls @ 166.667 mls/hr 08/30/18 06:00 08/31/18 05: 00 Sodium Chloride IVPB 166.667 mls/hr Q12H GRECIA Administration Lisinopril 20 mg 08/29/18 16:00 08/31/18 08:08 Prinivil Tab* PO 20 mg DAILY GRECIA Administration Magnesium Oxide 400 mg 08/31/18 17:00 Magox 400 Tab* PO DAILY GRECIA Metoprolol Tartrate 12.5 mg 08/29/18 21:00 08/31/18 08:08 Lopressor Tab* PO 12.5 mg Q12HR GRECIA Administration Ondansetron HCl 4 mg 08/29/18 14:02 Zofran Inj* IV Q6H PRN NAUSEA Pharmacy Consult 1 note 08/29/18 15:00 Vancomycin Per Pharmacy* FOLLOW UP .VANC PER PHARMACY [facility] Pharmacy Profile Note 1 note 08/31/18 17:30 Vancomycin Trough Check FOLLOW UP 08/31/18 17:31 .ENTER TIME ONE Prazosin HCl 1 mg 08/31/18 21:00 Minipress Cap* PO BID GRECIA Vital Signs Temp Pulse Resp BP Pulse Ox 98.5 F 70 16 150/94 99 08/31/18 12:24 08/31/18 12:24 08/31/18 12:24 08/31/18 13:37 08/31/18 12:24 O/E: Pt in NAD HEENT; PERRLA, No JVD Lungs: Diminished air entry on lt side CVS: S1, S2+, regular Abd: Soft,BS+ Ext: Normal ROM Skin: No rash Neuro:nO focal deficits Laboratory Results - last 24 hr 08/29/18 08/29/18 12:39 15:30 Fluid Cell Count Rvw By HIV 1&2 Antibody Nonreactive CXR 08/29/18 was personally reviewed- interval improvement in left effusion I/R: 68 y o m with no significant PMHx a/w worsening SOB, found to have large left effusion, s/p thoracentesis on 08/29/18 Pt with bloody effusion, cellcount showing lymphocyte predominant effusion He has h/o latent TB, being r/o for TB AFBx2 are negative Cytology pending Family h/o mesothelioma present Has h/o fall recently, denies significant trauma Awaiting final cytology, if absolutely negative for TB, malignancy, will need to redo thoracentesis to remove remaining fluidif it is related to trauma c/w abx coverage D/w Dr Segura
[2018-08-31] MEDS: cefTRIAXone(*) 1 GM in NS 0.9% 50 ML* 50 ML IVPB SCH (17:18)
[2018-08-31] MEDS ORDERED: Vancomycin Trough Check NOTE FOLLOW UP ONE (17:30)
[2018-08-31] MEDS: Magnesium Oxide TAB* 400 MG PO SCH (17:50)
[2018-08-31] MEDS ORDERED: hydrALAZINE IV* 20 MG/ML VIAL IV SLOW PU PRN (22:07)
[2018-09-01] MEDS: Vancomycin(*) 1,000 MG in NS 0.9% 250 ML* 250 ML IVPB SCH ×2 (03:15→10:34)
[2018-09-01] MEDS: Lisinopril TAB* 10 MG PO SCH (08:45)
[2018-09-01] MEDS: guaiFENesin ER TAB 600 MG PO SCH ×2 (08:45→20:35)
[2018-09-01] MEDS: Metoprolol Tartrate TAB* 25 MG PO SCH ×2 (08:46→20:36)
[2018-09-01] MEDS: Magnesium Oxide TAB* 400 MG PO SCH (08:46)
[2018-09-01] MEDS: Prazosin CAP* 1 MG PO SCH ×2 (10:34→20:35)
--- NOTE | 2018-09-01 16:13 | PN ---
Subjective Date of Service: 09/01/18 Interval History: Patient has no new complaints. Had been smoking up until admission, trying to cut down. Family History: Unchanged from Admission Social History: Unchanged from Admission Past Medical History: Unchanged from Admission Objective Active Medications: Acetaminophen (Tylenol Tab*) 650 mg PO Q6H PRN PRN Reason: FEVER/PAIN Benzonatate (Tessalon Cap*) 100 mg PO BID PRN PRN Reason: COUGH Guaifenesin (Mucinex*) 1,200 mg PO BID [facility] Last Admin: 09/01/18 08:45 Dose: 1,200 mg Hydralazine HCl (Apresoline Iv*) 10 mg IV SLOW PU Q6H PRN PRN Reason: HTN Stop: 09/01/18 22:06 Last Admin: 08/31/18 22:44 Dose: 10 mg Ceftriaxone Sodium 1 gm/ (Sodium Chloride) 50 mls @ 200 mls/hr IVPB Q24H [facility] Last Admin: 08/31/18 17:18 Dose: 200 mls/hr Lisinopril (Prinivil Tab*) 20 mg PO DAILY [facility] Last Admin: 09/01/18 08:45 Dose: 20 mg Magnesium Oxide (Magox 400 Tab*) 400 mg PO DAILY [facility] Last Admin: 09/01/18 08:46 Dose: 400 mg Metoprolol Tartrate (Lopressor Tab*) 12.5 mg PO Q12HR [facility] Last Admin: 09/01/18 08:46 Dose: 12.5 mg Ondansetron HCl (Zofran Inj*) 4 mg IV Q6H PRN PRN Reason: NAUSEA Prazosin HCl (Minipress Cap*) 1 mg PO BID [facility] Last Admin: 09/01/18 10:34 Dose: 1 mg Vital Signs - 8 hr 09/01/18 09/01/18 11:48 15:21 Temperature 36.9 C 37.1 C Pulse Rate 66 77 Respiratory 16 24 Rate Blood Pressure 156/88 153/88 (mmHg) O2 Sat by Pulse 99 99 Oximetry Oxygen Devices in Use Now: Nasal Cannula Appearance: alert, no distress Ears/Nose/Mouth/Throat: Clear Oropharnyx Neck: No Thyroid Enlargement, Masses Respiratory: Symmetrical Chest Expansion and Respiratory Effort, Clear to Auscultation, - - dull to percussion LT base, and absent BS LT base Cardiovascular: NL Sounds; No Murmurs; No JVD Abdominal: NL Sounds; No Tenderness; No Distention Lymphatic: No Cervical Adenopathy Neurological: Alert and Oriented x 3 Lines/Tubes/Other Access: Clean, Dry and Intact Peripheral IV Nutrition: Taking PO's Result Diagrams: 08/30/18 10:49 08/30/18 10:49 Additional Lab and Data: Path: non small cell lung carcinoma Assess/Plan/Problems-Billing Assessment: 68 year old admitted with dyspnea, large bloody LT pleural effusion - Patient Problems (1) Pleural effusion Current Visit: Yes Status: Acute Priority: High Code(s): J90 - PLEURAL EFFUSION, NOT ELSEWHERE CLASSIFIED SNOMED Code(s): 34745997 Comment: -now proven to be adenocarcinoma of the lung -Discussed diagnosis with patient -Consult arranged with Dr. Sparks (2) Pheochromocytoma Current Visit: Yes Status: Acute Priority: Medium Code(s): D35.00 - BENIGN NEOPLASM OF UNSPECIFIED ADRENAL GLAND SNOMED Code(s): 955080658 Comment: -Blood pressure in tolerable range -has declined surgery for Pheo in past. (3) DVT prophylaxis Current Visit: Yes Status: Acute Priority: Low Code(s): SQS1344 - SNOMED Code(s): 790501387 Comment: -high risk -switched to lovenox (4) Pneumonia Current Visit: Yes Status: Acute Priority: Medium Code(s): J18.9 - PNEUMONIA, UNSPECIFIED ORGANISM SNOMED Code(s): 877846493 Comment: -originally thought to have pneumonia w/ parapneumonic effusion -stopping ceftriaxone and vanco Status and Disposition: Inpatient
[2018-09-01 16:14] LABS: Lactate Dehydrogenase, BF 737 U/L
--- NOTE | 2018-09-01 17:39 | PN ---
Progress Note - Progress Note Date of Service: 09/01/18 - Pulm f/u note Note: Pt seen and examined at bedside. Pt reports no new sx Active Medications Generic Name Dose Route Start Last Admin Trade Name Freq PRN Reason Stop Dose Admin Acetaminophen 650 mg 08/29/18 14:02 Tylenol Tab* PO Q6H PRN FEVER/PAIN Benzonatate 100 mg 08/29/18 14:02 Tessalon Cap* PO BID PRN COUGH Enoxaparin Sodium 40 mg 09/01/18 17:00 Lovenox(*) SUBCUT Q24H GRECIA Guaifenesin 1,200 mg 08/29/18 21:00 09/01/18 08:45 Mucinex* PO 1,200 mg BID GRECIA Administration Hydralazine HCl 10 mg 08/31/18 22:07 08/31/18 22:44 Apresoline Iv* IV SLOW PU 09/01/18 22:06 10 mg Q6H PRN Administration HTN Lisinopril 20 mg 08/29/18 16:00 09/01/18 08:45 Prinivil Tab* PO 20 mg DAILY GRECIA Administration Magnesium Oxide 400 mg 08/31/18 17:00 09/01/18 08:46 Magox 400 Tab* PO 400 mg DAILY GRECIA Administration Metoprolol Tartrate 12.5 mg 08/29/18 21:00 09/01/18 08:46 Lopressor Tab* PO 12.5 mg Q12HR GRECIA Administration Ondansetron HCl 4 mg 08/29/18 14:02 Zofran Inj* IV Q6H PRN NAUSEA Prazosin HCl 1 mg 08/31/18 21:00 09/01/18 10:34 Minipress Cap* PO 1 mg BID GRECIA Administration Vital Signs Temp Pulse Resp BP Pulse Ox 98.8 F 77 24 153/88 99 09/01/18 15:21 09/01/18 15:21 09/01/18 15:21 09/01/18 15:21 09/01/18 15:21 Laboratory Results - last 24 hr 08/29/18 08/29/18 08/29/18 15:30 15:30 15:30 Fluid Source Pleural fluid Pleural fluid Pleural fluid Fluid Glucose < 2 Fluid Total Protein 5.6 Fluid LDH 737 O/E: Pt in NAD HEENT; PERRLA, No JVD Lungs: Diminished air entry on lt side CVS: S1, S2+, regular Abd: Soft,BS+ Ext: Normal ROM Skin: No rash Neuro:no focal deficits CXR 08/29/18 was personally reviewed- interval improvement in left effusion I/R: 68 y o m with no significant PMHx a/w worsening SOB, found to have large left effusion, s/p thoracentesis on 08/29/18 Pt with bloody effusion, cellcount showing lymphocyte predominant effusion He has h/o latent TB, being r/o for TB AFBx2 are negative Cytology positive for malignancy Resulkts reviewed with pt can d/c abx D/w Dr Segura
[2018-09-01] MEDS: Enoxaparin(*) 40 MG/0.4 ML SYR SUBCUT SCH (18:17)
[2018-09-02 06:31] LABS: BUN/Creatinine Ratio 13.8 (8-20); Potassium 4.2 mmol/L (3.5-5.0)
[2018-09-02 06:32] LABS: Calcium 8.4 mg/dL (8.6-10.3); EGFR Non-African American 95.8 (>60)
[2018-09-02] MEDS ORDERED: Vancomycin Trough Check NOTE FOLLOW UP ONE (09:30)
[2018-09-02] MEDS: Lisinopril TAB* 10 MG PO SCH (09:58)
[2018-09-02] MEDS: guaiFENesin ER TAB 600 MG PO SCH ×2 (09:59→22:05)
[2018-09-02] MEDS: Magnesium Oxide TAB* 400 MG PO SCH (10:00)
[2018-09-02] MEDS: Prazosin CAP* 1 MG PO SCH ×2 (10:00→22:05)
[2018-09-02] MEDS: Metoprolol Tartrate TAB* 25 MG PO SCH ×2 (10:06→22:05)
[2018-09-02 12:49] LABS: TB Mitogen minus Nil Result 9.79 IU/mL; TB Nil Result 0.02 IU/mL; TB1 Ag minus Nil Result 9.89 IU/mL; TB2 Ag minus Nil Result 9.85 IU/mL
--- NOTE | 2018-09-02 13:39 | CONS ---
CC: Dr. Greer; Dr. Seo * MEDICAL ONCOLOGY CONSULTATION NOTE: DATE OF CONSULT: 09/01/18 REASON FOR CONSULT: New diagnosis of stage MARIE adenocarcinoma of lung with malignant pleural effusion. HISTORY OF PRESENT ILLNESS: Mr. Ennis is a 68-year-old male who has been a smoker , smoked for 40 plus years, small cigars and quit about 5 years ago. He also has a previous history of having had a positive PPD 30 years ago and having been treated for 9 months with INH at a time when he was in custodial. He has been feeling achy and flu like for approximately a month and presented to the emergency room with increasing shortness of breath. He noticed some fullness in the chest, but not any significant chest pain. He denies any fevers or chills. Cough had been productive of only minimal sputum production. On arrival in the emergency room, chest x-ray was performed with a large left pleural effusion. CT scan of the chest showed very large left pleural effusion with compressive atelectasis. No obvious mediastinal and hilar adenopathy or lung nodules were noted. No endobronchial lesions were noted. He had a right adrenal mass, which has been known about for many years, which has increased slightly in size from previously. 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 At that time, he had elevated total metanephrines and normetanephrines. Thoracentesis was performed by Dr. Seo and revealed bloody effusion which was TTF-1 positive, also positive for vimentin BerEP4 and CVA. Other studies including PDL1, ROS, ALK, EGFR in a full profile through a [facility] are pending at this time. Since in the hospital and since having had the thoracentesis, he does feel considerably better. His breathing is improved. It is possible he might benefit from a repeat thoracentesis before discharge, however. He is currently being treated for the possibility of a pneumonia; however, the ceftriaxone and vancomycin are in the process of being discontinued now that etiology has been found. PAST MEDICAL HISTORY: 1. Right adrenal mass in 2011, pheochromocytoma slowly growing, has never had any crisis with it. 2. Hypertension. 3. Sleep apnea. 4. Inguinal herniorrhaphy. 5. Subdural hematoma in 2010 with tara hole. 6. Bilateral hernia repairs in 2011. 7. Status post total hip replacement. MEDICATIONS: At the time of admission included: 1. Prazosin 1 mg daily. 2. Lisinopril/hydrochlorothiazide 20/25 daily. 3. Naprosyn 2 tabs daily. ALLERGIES: IBUPROFEN. FAMILY HISTORY: Mother of complications from a pneumothorax. Father of mesothelioma. Six siblings including a brother who with dementia, another brother of an [place], and the third brother dying of cirrhosis. Only family history of malignancy is a sister who of breast cancer. SOCIAL HISTORY: Former smoker, small cigars for 40 years, quitting 5 years ago. Alcohol 1 to 2 per week. He does have a history of cocaine abuse in the past. 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 He currently is living with a friend, although he is looking for his own place so that he would be able to have a studio along with his apartment. He is not . He has 1 daughter. He was previously incarcerated back in the 1980s or . REVIEW OF SYSTEMS: Energy level has been good. Some mild weight loss recently. No significant arthritic or bony complaints. No significant headaches or visual problems. No other neurologic complaints. No significant changes in bowel or bladder habits. Review of systems otherwise negative except as discussed above. PHYSICAL EXAM: A 68-year-old male, in no acute distress. Vital Signs: Blood pressure 153/88, pulse 77, afebrile. HEENT: PERRL. EOMI. No erythema or exudates. No palpable cervical, supraclavicular, or axillary adenopathy. Lungs : Decreased breath sounds on the left at the base, right is clear. Heart: Regular rate and rhythm without murmurs, rubs, or gallops. Abdomen: Soft, nontender, without masses or organomegaly. Extremities: No clubbing, cyanosis , or edema. Back: No CVA or spinal tenderness. Neurologic Exam: Without focal deficits. DIAGNOSTIC STUDIES/LAB DATA: White count 5100, H and H 42/13.7, platelet count 209,000. Electrolytes, sodium 139, potassium 3.9, chloride 106, bicarb 24, BUN 14, creatinine 0.85. LFTs are normal. IMPRESSION: A 68-year-old male with bloody malignant pleural effusion. There is no obvious adenopathy or lung masses, this is clearly a primary lung cancer. We are awaiting special studies including EGFR, ALK, ROS, BRAF, HER-2 and PDL1. He is clearly not a candidate for surgery given the fact this is a stage MARIE lung cancer and the malignant tumor cells in the pleural effusion have totally invaded the entire left hemithorax. He understands that there is no current role for chemo or radiation. He also understands that repeat thoracentesis can be performed if necessary to help his breathing and this is a recurrent issue that a sclerosis could also be considered. Once we have back the final reports within the next week of potential mutation status of his tumor , he will need to be started on chemotherapy or immunotherapy or targeted therapy. He understands that we cannot start therapy at the present time until we have back the remainder of the workup. His current imaging studies have included the chest through the mid abdomen, the right adrenal gland was known to contain a pheochromocytoma. Liver looks fine. Given the fact that he has stage MARIE disease, further workup looking for other signs of metastatic disease would be an order, but not crucial before starting therapy. He has not had any [employer] imaging, which would also be important to do either as an inpatient or an outpatient. We will follow up with the patient in the near future and complete the workup before starting any therapy. He is aware that this is not a curable situation, but is certainly potentially treatable situation. [id number]/[facility] #: [id number] ALDA
[2018-09-02] MEDS: Enoxaparin(*) 40 MG/0.4 ML SYR SUBCUT SCH (16:31)
--- NOTE | 2018-09-02 18:15 | PN ---
Progress Note - Progress Note Date of Service: 09/02/18 - Pulm f/u note Note: Pt seen and examined at bedside. Pt reports feeling SOB with walking. Denies cough. Active Medications Generic Name Dose Route Start Last Admin Trade Name Freq PRN Reason Stop Dose Admin Acetaminophen 650 mg 08/29/18 14:02 Tylenol Tab* PO Q6H PRN FEVER/PAIN Benzonatate 100 mg 08/29/18 14:02 Tessalon Cap* PO BID PRN COUGH Enoxaparin Sodium 40 mg 09/01/18 17:00 09/02/18 16:31 Lovenox(*) SUBCUT Not Given Q24H GRECIA Guaifenesin 1,200 mg 08/29/18 21:00 09/02/18 09:59 Mucinex* PO 1,200 mg BID GRECIA Administration Lisinopril 20 mg 08/29/18 16:00 09/02/18 09:58 Prinivil Tab* PO 20 mg DAILY GRECIA Administration Magnesium Oxide 400 mg 08/31/18 17:00 09/02/18 10:00 Magox 400 Tab* PO 400 mg DAILY GRECIA Administration Metoprolol Tartrate 12.5 mg 08/29/18 21:00 09/02/18 10:06 Lopressor Tab* PO 12.5 mg Q12HR GRECIA Administration Ondansetron HCl 4 mg 08/29/18 14:02 Zofran Inj* IV Q6H PRN NAUSEA Prazosin HCl 1 mg 08/31/18 21:00 09/02/18 10:00 Minipress Cap* PO 1 mg BID GRECIA Administration Vital Signs Temp Pulse Resp BP Pulse Ox 97.7 F 76 24 139/77 98 09/02/18 15:52 09/02/18 15:52 09/02/18 15:52 09/02/18 15:52 09/02/18 15:52 O/E: Pt in NAD, sitting up in bed HEENT; PERRLA, No JVD Lungs: Diminished air entry on lt side CVS: S1, S2+, regular Abd: Soft,BS+ Ext: Normal ROM Skin: No rash Neuro:no focal deficits Laboratory Results - last 24 hr 08/30/18 09/02/18 10:50 06:00 Sodium 138 Potassium 4.2 Chloride 108 Carbon Dioxide 25 Anion Gap 5 BUN 11 Creatinine 0.80 Est GFR ( Amer) 116.0 Est GFR (Non-Af Amer) 95.8 BUN/Creatinine Ratio 13.8 Glucose 113 H Calcium 8.4 L Magnesium 2.0 TB (QFT) Gold In Tube Positive A TB Test (QFT) Nil 0.02 TB Test Mitogen - Nil 9.79 TB Test Antigen - Nil 9.85 I/R: 68 y o m with no significant PMHx a/w worsening SOB, found to have large left effusion, s/p thoracentesis on 08/29/18 Pt with bloody effusion, cellcount showing lymphocyte predominant effusion AFBx2 are negative Cytology positive for malignancy-adenocarcinoma of lung primary Pt with worsening SOB Thoracentesis repeated for symptomatic benefit, 2L fluid removed without any complications Oncology consultation appreciated Possible d/c tomorrow D/w Lindsey Perez
--- NOTE | 2018-09-02 20:32 | PRO ---
THORACENTESIS REPORT: DATE OF PROCEDURE: 09/02/18 - ROOM #452 PREPROCEDURAL DIAGNOSIS: Large right pleural effusion. INDICATION; therapeutic benefit. ANESTHESIA: Local anesthesia with 1% lidocaine. DESCRIPTION OF PROCEDURE: Informed consent was obtained from the patient prior to the procedure after all the risks and benefits were thoroughly explained. The patient was sitting up and leaning forward during the procedure. Strict aseptic precautions and all barrier techniques were utilized. Appropriate time- out was performed and agreed on by attending staff. CareFusion 8-E[place]ian thoracentesis catheter was utilized for the procedure. After ultrasound localization, area was disinfected with chlorhexidine. Sterile drape was placed. Area was anesthetized with 1% lidocaine intradermally down into the pleural space taking precautions. A #11 scalpel blade was used to make stab incision. CareFusion 8-E[place]ian thoracentesis catheter was then inserted on manual suction taking precautions. Catheter was left in place and needle was removed. 2 L of dark bloody fluid was removed under manual suction. Catheter was then removed and Band-Aid was applied. The patient tolerated the procedure well. [id number]/[facility] #: [id number] [facility]
--- NOTE | 2018-09-02 21:21 | PN ---
Subjective Interval History: Pt with 2 more liters removed through thoracentesis. Feeling better although nervous about fluid re-accumulating. Family History: Unchanged from Admission Social History: Unchanged from Admission Past Medical History: Unchanged from Admission Objective Active Medications: Acetaminophen (Tylenol Tab*) 650 mg PO Q6H PRN PRN Reason: FEVER/PAIN Benzonatate (Tessalon Cap*) 100 mg PO BID PRN PRN Reason: COUGH Enoxaparin Sodium (Lovenox(*)) 40 mg SUBCUT Q24H [facility] Last Admin: 09/02/18 16:31 Dose: Not Given Guaifenesin (Mucinex*) 1,200 mg PO BID [facility] Last Admin: 09/02/18 09:59 Dose: 1,200 mg Lisinopril (Prinivil Tab*) 20 mg PO DAILY [facility] Last Admin: 09/02/18 09:58 Dose: 20 mg Magnesium Oxide (Magox 400 Tab*) 400 mg PO DAILY [facility] Last Admin: 09/02/18 10:00 Dose: 400 mg Metoprolol Tartrate (Lopressor Tab*) 12.5 mg PO Q12HR [facility] Last Admin: 09/02/18 10:06 Dose: 12.5 mg Ondansetron HCl (Zofran Inj*) 4 mg IV Q6H PRN PRN Reason: NAUSEA Prazosin HCl (Minipress Cap*) 1 mg PO BID [facility] Last Admin: 09/02/18 10:00 Dose: 1 mg Vital Signs - 8 hr 09/02/18 15:52 Temperature 97.7 F Pulse Rate 76 Respiratory 24 Rate Blood Pressure 139/77 (mmHg) O2 Sat by Pulse 98 Oximetry Oxygen Devices in Use Now: None, Nasal Cannula Appearance: well appearing, lying flat in bed and speaking full sentences Ears/Nose/Mouth/Throat: Clear Oropharnyx Neck: Trachea Midline Respiratory: - - dull to percussion over lower L lung field with decreased breath sounds in that area Abdominal: NL Sounds; No Tenderness; No Distention Extremities: No Edema Result Diagrams: 08/30/18 10:49 09/02/18 06:00 Additional Lab and Data: Path: non small cell lung carcinoma Microbiology and Other Data: Microbiology 08/30/18 17:10 Sputum Gram Stain - Final 08/30/18 17:10 Respiratory - Sputum Acid Fast Bacilli Smear - Final 08/30/18 04:30 Nasal Nasal Screen MRSA (PCR) - Final Mrsa Not Detected 08/29/18 17:30 Urine Urine Culture - Final 08/29/18 17:30 Urine Streptococcus pneumoniae Ag Screen - Final Negative Legionella Antigen Negative S. pneumo Antigen No Growth (<1,000 CFU/mL) 08/29/18 15:30 Pleural Fluid Gram Stain - Final 08/29/18 15:30 Body Fluid - Pulmonary Acid Fast Bacilli Smear - Final 08/29/18 15:30 Pleural Fluid Body Fluid Culture - Preliminary No Growth Day 2 08/29/18 13:45 Blood Venous Aerobic Blood Culture - Preliminary 08/29/18 13:45 Blood Venous Anaerobic Blood Culture - Preliminary No Growth Day 2 No Growth Day 2 08/29/18 12:39 Blood Venous Aerobic Blood Culture - Preliminary 08/29/18 12:39 Blood Venous Anaerobic Blood Culture - Preliminary No Growth Day 2 No Growth Day 2 Diagnostic Imaging: Repeat CXR: decreased effusion. Assess/Plan/Problems-Billing Assessment: 68 year old admitted with dyspnea, large bloody LT pleural effusion with cytology revealing new adenocarcinoma from lung. - Patient Problems (1) Pleural effusion Current Visit: Yes Status: Acute Priority: High Code(s): J90 - PLEURAL EFFUSION, NOT ELSEWHERE CLASSIFIED SNOMED Code(s): 40440291 Comment: Adenocarcinoma of the lung. Discussed diagnosis with patient. - appreciate Dr. Rayray torrez and s/p juliane x 2 - to f/trixie with Dr. Sparks next week for oncologic treatment (2) Pheochromocytoma Current Visit: Yes Status: Acute Priority: Medium Code(s): D35.00 - BENIGN NEOPLASM OF UNSPECIFIED ADRENAL GLAND SNOMED Code(s): 167251855 Comment: -Blood pressure in tolerable range -has declined surgery for Pheo in past. Status and Disposition: Likely home tomorrow.
[2018-09-03] MEDS: Magnesium Oxide TAB* 400 MG PO SCH (10:12)
[2018-09-03] MEDS: Lisinopril TAB* 10 MG PO SCH (10:12)
[2018-09-03] MEDS: Metoprolol Tartrate TAB* 25 MG PO SCH (10:12)
[2018-09-03] MEDS: Prazosin CAP* 1 MG PO SCH (10:12)
[2018-09-03] MEDS: guaiFENesin ER TAB 600 MG PO SCH (10:12)
[2018-09-03 12:57] VITALS: BP 140/86
--- NOTE | 2018-09-04 00:36 | DS ---
CC: Prudence Greer MD; Dr. Chika Seo; Dr. Alex Sparks * DISCHARGE SUMMARY: DATE OF ADMISSION: 08/29/18 DATE OF DISCHARGE: 09/03/18 PRIMARY CARE PHYSICIAN: Prudence Greer MD DISPOSITION: Home CONDITION: Improved. PRIMARY DIAGNOSIS: Lung adenocarcinoma, complicated by pleural effusion. SECONDARY DIAGNOSIS: Hypertension. CONSULTS: 1. Pulmonology, Dr. Chika Seo. 2. Oncology, Dr. Alex Sparks. PERTINENT PROCEDURES/STUDIES: Thoracentesis x2. Pleural effusion bloody and positive for TTF-1, vimentin Joseph- EP4, and CEA Chest CT on 08/29/18 with large grossly water density left pleural effusion with severe compressive atelectasis of the left lung No compelling evidence for pneumonia. No pulmonary or endobrachial mass evident, however, atelectasis limits assessment. Also, with right adrenal mass concerning for neoplasm. A primary adrenal lesion is favored over metastasis given absence of additional mass lesions within the field of view. HISTORY OF PRESENT ILLNESS: A 68-year-old male with past medical history of hypertension and pheochromocytoma presented with severe shortness of breath and dyspnea on exertion as well as feeling of chest fullness for a few days prior to admission. About 1 month prior to admission, he reports a flu-like syndrome with body aches, wheezing, and shortness of breath that did self-resolve. He reports a several-week history of 10-pound weight loss. He has travelled frequently for work including [employer]. HOSPITAL COURSE: In the ER, the patient was hypertensive at 200/138. He was not tachycardic or hypoxic. His labs were relatively unremarkable, but his chest x-ray showed a large left-sided pleural effusion with followup chest CT confirming almost total obscuration of his left lung without compelling evidence for pneumonia or mass. The patient was started on broad-spectrum antibiotics given inability to rule out infection with imaging, but these were stopped within a few days as the patient exhibited no signs of infection. He was also ruled out for tuberculosis this admission. Pulmonology was consulted and performed a diagnostic and therapeutic thoracentesis, which revealed bloody fluid with cytology concerning for carcinoma with a lung primary. One day prior to discharge, he required a repeat thoracentesis with 2 L drained. He was also seen by Oncology with plan to follow up pending studies in clinic within 1 week. On the day of discharge, the patient only reported mild dyspnea. He was able to walk the halls without needing oxygen, and he was not requiring oxygen at rest. Otherwise, 10-point review of systems was negative. PHYSICAL EXAMINATION: Well-appearing man, initially brushing his teeth in his bathroom. Breathing comfortably on room air. Heart: Regular rate and rhythm. No murmurs, gallops or rubs. Neck: No cervical lymphadenopathy. Lungs: Diminished air entry on left lower lung field with dullness to percussion as well. Abdomen: Soft and nontender. Extremities: Warm, well perfused. No lower extremity edema. Skin: Without rashes. DISCHARGE PLAN: The patient is to follow up with Oncology on Friday, the , and he will also be seen in his primary care and pulmonology clinics. He is to return to the hospital if he experiences an increase in shortness of breath or fevers. DISCHARGE MEDICATIONS: 1. Prazosin 1 mg daily. 2. Lisinopril and hydrochlorothiazide 20/25 mg daily. 3. Metoprolol succinate 25 mg daily. TIME SPENT: Approximately 60 minutes were spent on discharge of this patient, more than half of which was spent with care coordination or at bedside for interview and exam. [id number]/[facility] #: [id number] MTDD
== END 2018-09-03 15:00 | disposition home or self-care (01) | DRG 181 ==
LOC: ED 12:00 → MEDTELE 14:02
PROVIDERS: ADMIT Internal Medicine; ATTEND Internal Medicine
PROC: 0W9B3ZZ Drainage of Left Pleural Cavity, Percutaneous Approach (ICD-10-PCS; principal; 2018-08-29)
DX: C34.92 Malignant neoplasm of unspecified part of left bronchus or lung (principal); J98.11 Atelectasis; J91.0 Malignant pleural effusion; I10 Essential (primary) hypertension; D35.01 Benign neoplasm of right adrenal gland; Z96.642 Presence of left artificial hip joint; R63.4 Abnormal weight loss; G47.30 Sleep apnea, unspecified; Z87.440 Personal history of urinary (tract) infections; Z72.89 Other problems related to lifestyle; Z82.49 Family history of ischemic heart disease and other diseases of the circulatory system; Z83.3 Family history of diabetes mellitus; Z88.6 Allergy status to analgesic agent; Z86.11 Personal history of tuberculosis; Z87.820 Personal history of traumatic brain injury; Z80.3 Family history of malignant neoplasm of breast; Z82.5 Family history of asthma and other chronic lower respiratory diseases; Z82.0 Family history of epilepsy and other diseases of the nervous system; Z87.891 Personal history of nicotine dependence; Z80.8 Family history of malignant neoplasm of other organs or systems; Z68.26 Body mass index [BMI] 26.0-26.9, adult
CPT/HCPCS: 36415; 71045; 71046; 71260; 76604; 80048; 80053; 80202; 81003; 81015; 81445; 82550; 82553; 82657; 82945; 83605; 83615; 83735; 83880; 83986; 84157; 84311; 84484; 85025; 86140; 86480; 86703; 87040; 87070; 87077; 87086; 87116; 87205; 87206; 87641; 87899; 88112; 88305; 88341; 88342; 88360; 89051; 93005; 99285; A9270-GY; G8978-GP-CH; G8979-GP-CH; G8980-GP-CH; J0360; J0696; J1650; J2543; J3370; Q9967

== ENCOUNTER → 2018-09-09 11:17 | Day surgery (SDC) | payer MEDICARE, MEDICAID ==
--- NOTE | 2018-09-09 15:27 | PRO ---
THORACENTESIS REPORT: DATE OF PROCEDURE: 09/09/18 PROCEDURE PERFORMED: Ultrasound-guided thoracentesis on the left side. PREPROCEDURAL DIAGNOSIS: Recently diagnosed lung cancer. ANESTHESIA: Local anesthesia with 1% lidocaine 4 cc. DESCRIPTION OF PROCEDURE: Informed consent was obtained from the patient prior to the procedure after all the risks and benefits were thoroughly explained. The patient was sitting up, leaning forward during the procedure. All barrier techniques were utilized. Strict aseptic precautions were followed. Portable ultrasound was utilized at bedside to localize amounts of right effusion. Site was marked. Area was disinfected with chlorhexidine. Sterile drape was applied. CareFusion 8-telugu thoracentesis catheter was utilized. Local anesthesia was achieved intradermally, subcutaneously down into the pleural space taking precautions. A #11 scalpel blade was used to make a stab incision. CareFusion 8- telugu thoracentesis catheter was then inserted under manual suction taking precautions. Catheter was left in place and needle was removed. 2 L of bloody fluid was removed under manual suction. Catheter was then removed. Postprocedural chest x-ray was obtained and verified. The patient reported symptomatic improvement after the procedure. [id number]/[facility] #: [id number] [facility] HOSPITALLashonda
== END | disposition home or self-care (01) ==
LOC: OR 11:17
PROVIDERS: ATTEND Internal Medicine
DX: C34.92 Malignant neoplasm of unspecified part of left bronchus or lung (principal); J91.0 Malignant pleural effusion; I10 Essential (primary) hypertension
CPT/HCPCS: 32554; 71045; 76604

== ENCOUNTER → 2018-09-15 11:34 | Day surgery (SDC) | payer MEDICARE, MEDICAID ==
--- NOTE | 2018-09-15 22:35 | PRO ---
THORACENTESIS REPORT: DATE OF PROCEDURE: 09/15/18 PROCEDURE PERFORMED: Ultrasound-guided thoracentesis on the left side. PREPROCEDURAL DIAGNOSIS: Large left pleural effusion. INDICATION FOR THE PROCEDURE: Therapeutic benefit. ANESTHESIA: Local anesthesia with 1% lidocaine. DESCRIPTION OF PROCEDURE: Informed consent was obtained from the patient prior to the procedure after all the risks and benefits were thoroughly explained. Strict aseptic precautions and all barrier techniques were utilized. The patient was sitting up and leaning forward during the procedure. A portable ultrasound was utilized at bedside to rinku large amounts of left pleural effusion. Area was disinfected with chlorhexidine. Sterile drape was placed. A CareFusion 8-Azerbaijani thoracentesis catheter was utilized for the procedure. Local anesthesia was achieved with lidocaine intradermally, subcutaneously down into the pleural space, taking precautions. A #11 scalpel blade was used to make stab incision in the back to facilitate the passage of the catheter. An 8- Azerbaijani catheter was then inserted under manual suction, taking precautions. Catheter was left in place and the needle was removed. 2 L of dark red fluid was removed under manual suction. The patient tolerated the procedure well. Catheter was removed and sterile drape was applied. [id number]/[facility] #: [id number] MTDD
== END | disposition home or self-care (01) ==
LOC: OR 11:34
PROVIDERS: ATTEND Internal Medicine
DX: J90 Pleural effusion, not elsewhere classified (principal); D35.00 Benign neoplasm of unspecified adrenal gland; I10 Essential (primary) hypertension; Z87.440 Personal history of urinary (tract) infections
CPT/HCPCS: 32554; 76604

== ENCOUNTER 2018-09-21 08:23 | Day surgery (SDC) | payer MEDICARE, MEDICAID ==
[~2018-09-21 08:23] MED LIST: Famotidine TAB* 20 MG PO ONE; Lactated Ringers 1000 ML Bag* 1,000 ML IV SCH
[2018-09-21] MEDS ORDERED: Famotidine TAB* 20 MG ONE (08:32)
[2018-09-21] MEDS ORDERED: Buffered Lidocaine 1% SYRIN* 1 ML/SYRINGE INTRADERM ONE (08:33)
[2018-09-21] MEDS ORDERED: Propofol* 10 MG/ML 20 ML BTL ONE (09:25)
[2018-09-21] MEDS ORDERED: Lidocaine 2% PF * 5 ML VIAL ONE ×2 (09:25→10:56)
[2018-09-21] MEDS ORDERED: Propofol* 500 MG/50 ML BTL ONE (09:26)
[2018-09-21] MEDS: Buffered Lidocaine 1% SYRIN* 1 ML/SYRINGE INTRADERM ONE ×2 (09:36→09:38)
[2018-09-21] MEDS ORDERED: Midazolam* 1 MG/ML 2 ML VIAL (2 MG) ONE (09:51)
[2018-09-21] MEDS ORDERED: ceFAZolin 2 GM in NS PREMIX(*) 2 GM/100 ML BAG IVPB ONE (10:44)
[2018-09-21] MEDS ORDERED: Acetaminophen TAB* 325 MG PO PRN (10:53)
[2018-09-21] MEDS ORDERED: Ondansetron INJ* 2 MG/ML VIAL IV PRN (10:53)
[2018-09-21] MEDS ORDERED: fentaNYL* 50 MCG/ML 2 ML VIAL (100 MCG VIAL) IV PRN (10:53)
[2018-09-21] MEDS ORDERED: Naloxone* 0.4 MG/ML 1 ML VIAL IV PRN (10:53)
[2018-09-21] MEDS ORDERED: Acetaminophen TAB* 325 MG ONE ×2 (12:01→12:02)
[2018-09-21 12:09] VITALS: BP 142/92
--- NOTE | 2018-09-21 13:31 | OP ---
CC: Dr. Sparks; Dr. Seo; Dr. Greer * DATE OF OPERATION: 09/21/18 - [facility] DATE OF : 48 SURGEON: Grayson Cruz MD INFORMATION SYSTEMS MANAGER: None. ANESTHESIOLOGIST: Dr. Briseno. ANESTHESIA: LMAC anesthesia. PRE-OP DIAGNOSIS: Lung cancer with left pleural effusion. POST-OP DIAGNOSIS: Lung cancer with left pleural effusion. OPERATIVE PROCEDURE: Placement of left subclavian PowerPort and placement of left PleurX catheter. DESCRIPTION OF PROCEDURE: The patient was supine on the operative table. After adequate intravenous sedation, compression stockings, Abel Hugger warmer and intravenous antibiotics, a roll was placed under the scapula on the left arm , brought across his chest and the left lateral chest was prepped with antiseptic, draped in a sterile fashion. A time-out was carried out. Approximately, the 9th interspace was addressed and local anesthetic was administered and the needle used to identify the pleural fluid. The tract was anesthetized and the exit site was also anesthetized and the catheter was tunneled in anterior posteriorly and then passed through the peel-away introducer into the pleural space. The cuff was left just inside the exit site. The exit site was sutured with 2-0 silk. The entry site was closed with 3-0 Vicryl followed by Steri-Strips. The chest was drained of 3 L of bloody fluid and then it was disconnected and a big Tegaderm was placed over the site. Attention was then turned to the left chest and neck which were prepped with antiseptic and draped in a sterile fashion. He was supine on the table and the area was prepped and draped in the usual fashion. Local infiltrative anesthesia was administered and approximately a 3 cm incision was created in the left subclavian region and inferior pocket was created. A subclavian venipuncture was carried out. Guidewire passed under fluoroscopy and the peel-away introducer was used to introduce the catheter into the vasculature. This was examined under fluoroscopy and cut at 28 cm, attached to the port which was sutured to the pocket with 2-0 Prolene. Pocket was closed with 3-0 and 4-0 Vicryl followed by Steri- Strips. The port has good blood return. It was flushed with saline solution and heparinized solution. He tolerated the procedure well. He was brought to recovery in good condition. No complications. No drains. No pathologic specimens. Sponge and instrument counts were correct. ESTIMATED BLOOD LOSS: May be 10 mL but there was 3 L of pleural fluid drained from the left chest. [id number]/[facility] #: [id number] MTDD
== END 2018-09-21 13:09 | disposition home or self-care (01) ==
LOC: OR 08:23
PROVIDERS: ATTEND Surgery
DX: C34.90 Malignant neoplasm of unspecified part of unspecified bronchus or lung (principal); J91.0 Malignant pleural effusion; D35.00 Benign neoplasm of unspecified adrenal gland; I10 Essential (primary) hypertension; A15.8 Other respiratory tuberculosis; Z87.440 Personal history of urinary (tract) infections; Z87.891 Personal history of nicotine dependence
CPT/HCPCS: 36415; 71045; 76000; 80307; A9270-GY; C1788; J0690; J2250; J2704

== ENCOUNTER → 2018-12-01 17:36 | Emergency (ER) | payer MEDICARE, MEDICAID ==
[~2018-12-01 17:36] MED LIST changes: +Ciprofloxacin TAB* 500 MG PO ONE; -Famotidine TAB* 20 MG PO ONE; -Lactated Ringers 1000 ML Bag* 1,000 ML IV SCH; +NS 0.9% 1000 ML** 1,000 ML IV ONE
--- NOTE | 2018-12-01 17:58 | ED ---
GI/ HPI - HPI Summary HPI Summary: This pt is a 68 y/o male presenting to [facility] c/o left flank pain for the past few days. Pt also reports urinary urgency, he has the urge to urinate but only voids a little. He notes the last time he urinated was 2 hours ago. Pt states he has chills. Denies fever, chest pain, SOB. He denies hx of kidney stones. PMHx includes HTN, lung CA on chemo. He has a catheter on his left anterior chest to drain pleural fluid. - History of Current Complaint Chief Complaint: EDFlankPain Time Seen by Provider: 12/01/18 17:50 Stated Complaint: CANCER PT POSS DEHYDRATED PER PT Hx Obtained From: Patient Onset/Duration: Started Days Ago, Still Present Timing: Lasting Days Current Severity: Moderate Pain Intensity: 8 Location of Pain: Flank - left Associated Signs and Symptoms: Positive: Flank Pain - left, Chills, Other: - urinary urgency. Negative: Fever, Chest Pain Aggravating Factor(s): Nothing Alleviating Factor(s): Nothing - Additional Pertinent History Primary Care Physician: [id number] - Allergy/Home Medications Allergies/Adverse Reactions: Allergies Allergy/AdvReac Type Severity Reaction Status Date / Time ibuprofen [From Motrin] Allergy Agitation Verified 12/01/18 17:46 PMH/Surg Hx/FS Hx/Imm Hx Endocrine/Hematology History: Reports: Other Endocrine/Hematological Disorders - (right) adrenal mass Denies: Hx Diabetes Cardiovascular History: Reports: Hx Hypertension - meds Denies: Hx Pacemaker/ICD Respiratory History: Reports: Hx Sleep Apnea - evaluation for 12/2013, Other Respiratory Problems/Disorders - ex-smoker Denies: Hx Asthma GI History: Reports: Other GI Disorders - hx inguinal hernia repair History: Reports: Other Problems/Disorders - hx UTI's Denies: Hx Kidney Stones, Hx Renal Disease Sensory History: Reports: Hx Contacts or Glasses Denies: Hx Hearing Aid Opthamlomology History: Reports: Hx Contacts or Glasses Neurological History: Reports: Other Neuro Impairments/Disorders - 05/2011 bilateral subdural hematoma evac d/t trauma Psychiatric History: Reports: Other Psychiatric Issues/Disorders - hx cocaine abuse Denies: Hx Panic Disorder - Cancer History Cancer Type, Location and Year: LUNG CA - on chemo Hx Chemotherapy: Yes - Surgical History Surgical History: Yes Surgery Procedure, Year, and Place: 06/2011- (left) inguinal hernia repair, ( right) inguinal hernia repair as a child. [place] hole surgery d/t subdural hematoma. HIP REPLACEMENT Infectious Disease History: No Infectious Disease History: Denies: History Other Infectious Disease, Traveled Outside the [place] in Last 30 Days - Family History Known Family History: Positive: Hypertension, Diabetes - Social History Alcohol Use: Rare Substance Use Type: Reports: Marijuana Substance Use Comment - Amount & Last Used: States past not current Smoking Status (MU): Light Every Day Tobacco Smoker Type: Cigarettes, Cigars Amount Used/How Often: 1/2 PPD Have You Smoked in the Last Year: Yes Review of Systems Positive: Chills. Negative: Fever Negative: Chest Pain Negative: Shortness Of Breath Positive: flank pain - left, urgency Neurological: Negative All Other Systems Reviewed And Are Negative: Yes Physical Exam - Summary Physical Exam Summary: VITAL SIGNS: Reviewed. GENERAL: Patient is a well-developed and nourished male who is lying comfortable in the stretcher. Patient is not in any acute respiratory distress. HEAD AND FACE: No signs of trauma. No ecchymosis, hematomas or skull depressions. No sinus tenderness. EYES: PERRLA, EOMI x 2, No injected conjunctiva, no nystagmus. EARS: Hearing grossly intact. Ear canals and tympanic membranes are within normal limits. MOUTH: Oropharynx within normal limits. NECK: Supple, trachea is midline, no adenopathy, no JVD, no carotid bruit, no c- spine tenderness, neck with full ROM. CHEST: Symmetric, no tenderness at palpation LUNGS: Clear to auscultation bilaterally. No wheezing or crackles. CVS: Regular rate and rhythm, S1 and S2 present, no murmurs or gallops appreciated. ABDOMEN: Soft. No signs of distention. No rebound no guarding, and no masses palpated. Bowel sounds are normal. Left costovertebral angle tenderness. EXTREMITIES: FROM in all major joints, no edema, no cyanosis or clubbing. NEURO: Alert and oriented x 3. No acute neurological deficits. Speech is normal and follows commands. SKIN: Dry and warm Triage Information Reviewed: Yes Vital Signs On Initial Exam: Initial Vitals Temp Pulse Resp BP Pulse Ox 96.8 F 76 16 102/83 99 12/01/18 17:42 12/01/18 17:42 12/01/18 17:42 12/01/18 17:42 12/01/18 17:42 Vital Signs Reviewed: Yes Diagnostics - Vital Signs Vital Signs Temp Pulse Resp BP Pulse Ox 12/01/18 17:42 96.8 F 76 16 102/83 99 - Laboratory Result Diagrams: 12/01/18 18:33 12/01/18 18:33 Lab Statement: Any lab studies that have been ordered have been reviewed, and results considered in the medical decision making process. - CT CT abdomen/pelvis CT Interpretation Completed By: Radiologist Summary of CT Findings: IMPRESSION: 1. No CT findings to correlate with patient' s symptomatology. Specifically no obstructing renal or ureteral calculi. 2. Postsurgical left hydropneumothorax with indwelling thoracostomy tube. 3. 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 No followup imaging indicated per ACR guidelines. Dr. Alcaraz has reviewed this report. Re-Evaluation - Re-Evaluation First Eval Re-Evaluation Time: 19:56 Comment: Reviewed lab and CT results with pt. He will be discharged home with a prescription for Ciprofloxacin and follow up from his PCP. GIGU Course/Dx - Course Assessment/Plan: This pt is a 68 y/o male presenting to [facility] c/o left flank pain for the past few days. Pt also reports urinary urgency, he has the urge to urinate but only voids a little. He notes the last time he urinated was 2 hours ago. Pt states he has chills. Denies fever, chest pain, SOB. He denies hx of kidney stones. PMHx includes HTN, lung CA on chemo. He has a catheter on his left anterior chest to drain pleural fluid. Past medical history significant for: 1- Adenocarcinoma of the lung. 2- Sleep apnea. 3- Pleural effusion. 4- Pheochromocytoma. 5- Pneumonia. Blood test results without any significant abnormality except for hemoglobin 10.1, hematocrit 31, sodium 133, BUN 25, creatinine 1.33, glucose 137, AST is 49, CRP is 93.2. In the ED course the patient was given IV fluids for dehydration. Patient declined any pain medications at this point. Abdominal and pelvic CT IMPRESSION: 1. No CT findings to correlate with patient's symptomatology. Specifically no obstructing renal or ureteral calculi. 2. Postsurgical left hydropneumothorax with indwelling thoracostomy tube. 3. 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 No followup imaging indicated per ACR guidelines. After the patient was hydrated he reports that he is feeling much improved. Urinalysis positive for a UTI. He was given Ciprofloxacin. Therefore the patient was discharged home with follow-up from his primary care physician. The patient declined any pain medications since the pain has resolved. I discussed all the findings and test results with the patient. Patient was instructed to return to the emergency room immediately if any of the symptoms return worsens. Plan of care was discussed with the patient and understands and agrees. All questions were answered at patient satisfaction. There were no further complaints or concerns. Lung exam before discharge: CTA B/L. Good air exchange. No wheezing or crackles heard. CVS: S1 and S2 present. No murmurs appreciated. Patient is alert and oriented x 3. Patient is hemodynamically stable. Patient will be discharged home with follow up from his PCP in the next 2-3 days. - Diagnoses Provider Diagnoses: Dehydration, Flank pain, UTI (urinary tract infection) Discharge - Sign-Out/Discharge Documenting (check all that apply): Patient Departure - Discharge home Patient Received Moderate/Deep Sedation with Procedure: No - Discharge Plan Condition: Stable Disposition: HOME Prescriptions: Ciprofloxacin TAB* [Cipro 500 MG TAB*] 500 mg PO BID #14 tab Patient Education Materials: Dehydration (ED), Urinary Tract Infection in Men ( ED), Flank Pain (ED) Referrals: Prudence Greer MD [Primary Care Provider] - Additional Instructions: FOLLOW UP WITH YOUR PRIMARY CARE PROVIDER IN 2-3 DAYS. RETURN TO THE EMERGENCY DEPARTMENT FOR ANY WORSENING OR NEW SYMPTOMS. - Billing Disposition and Condition Condition: STABLE Disposition: Home - Attestation Statements Document Initiated by Carson: Yes Documenting Scribe: Sierra Mc Provider For Whom Carson is Documenting (Include Credential): Truong Alcaraz MD Scribe Attestation: Sierra Willson scribed for Truong Alcaraz MD on 12/01/18 at 2618. Scribe Documentation Reviewed: Yes Provider Attestation: The documentation as recorded by the Sierra prado accurately reflects the service I personally performed and the decisions made by me, Truong Alcaraz MD Status of Scribe Document: Viewed
[2018-12-01 18:54] LABS: Hematocrit 31 % (42-52); Hemoglobin 10.1 g/dL (14.0-18.0); Mean Corpuscular HGB Conc 33 g/dL (31-36); Mean Corpuscular Hemoglobin 29 pg (27-31); Mean Corpuscular Volume 89 fL (80-94); Mean Platelet Volume 7.4 fL (7.4-10.4); Platelet Count 91 10^3/uL (150-450); Red Blood Count 3.49 10^6 /uL (4.18-5.48); Red Cell Distribution Width 15 % (10-15)
[2018-12-01 19:02] LABS: Albumin 3.5 g/dL (3.2-5.2); BUN/Creatinine Ratio 18.8 (8-20); C Reactive Protein 93.29 mg/L (<8.01); Calcium 8.8 mg/dL (8.6-10.3); EGFR African American 64.5 (>60); EGFR Non-African American 53.3 (>60); Globulin 3.5 g/dL (2-4); Potassium 4.1 mmol/L (3.5-5.0); Total Bilirubin 0.6 mg/dL (0.2-1.0)
[2018-12-01 19:26] LABS: ABS Lymphocytes 1.9 10^3/ul (1.0-4.8); ABS Monocytes 1.6 10^3/ul (0-0.8); ABS Neutrophils 1.4 10^3/ul (1.5-7.7); Eosinophil % 0.6 %; Lymphocyte % 38.6 %; Nucleated Red Blood Cells % 0.1
[2018-12-01 19:56] LABS: Urine Appearance Cloudy; Urine Bacteria Absent (Absent); Urine Bilirubin Negative (Negative); Urine Blood 1+ (Negative); Urine Color Amber; Urine Glucose Negative (Negative); Urine Ketones Negative (Negative); Urine Nitrite Positive (Negative); Urine Protein Negative (Negative); Urine Red Blood Cell 1+(3-5/hpf) (Absent); Urine Specific Gravity 1.016 (1.010-1.030); Urine Urobilinogen Negative (Negative); Urine White Blood Cell 3+(>20/hpf) (Absent)
[2018-12-01 21:58] VITALS: BP 166/103
== END | disposition home or self-care (01) ==
LOC: ED 17:36
DX: E86.0 Dehydration (principal); R10.84 Generalized abdominal pain; N39.0 Urinary tract infection, site not specified; Z87.440 Personal history of urinary (tract) infections; C34.90 Malignant neoplasm of unspecified part of unspecified bronchus or lung; E27.9 Disorder of adrenal gland, unspecified; I10 Essential (primary) hypertension; Z96.649 Presence of unspecified artificial hip joint; Z88.6 Allergy status to analgesic agent; F17.210 Nicotine dependence, cigarettes, uncomplicated
CPT/HCPCS: 36415; 74176; 80053; 81003; 81015; 82550; 83605; 83690; 85025; 85060; 86140; 87086; 96360; 96361; 99283; A9270-GY

== ENCOUNTER → 2018-12-17 11:51 | Emergency (ER) | payer MEDICARE, MEDICAID ==
[~2018-12-17 11:51] MED LIST changes: -Ciprofloxacin TAB* 500 MG PO ONE; +oxyCODONE/Acetamin 5/325 MG* TAB PO ONE
--- NOTE | 2018-12-17 12:50 | ED ---
Complex/Multi-Sys Presentation - HPI Summary HPI Summary: This patient is a 68 year old M presenting to [facility] by EMS accompanied by with a chief complaint of weakness since 12/16/18. Pt has stage 4 lung cancer, and had chemotherapy on 12/11/18. Afterwards, pt reports he felt dehydrated, feverish, and that he could not walk as he felt so hot. His reports that he had diarrhea, and was incoherent (improved at this time). Pt also was complaining of severe left flank pain and pain in back. Pt had a port and drain placed a few months ago and reports it is not been draining recently, and has had pain near the drain. Pt also reports his urine was brown and had a foul odor. - History Of Current Complaint Chief Complaint: EDFlankPain Time Seen by Provider: 12/17/18 12:07 Hx Obtained From: Patient Onset/Duration: Lasting Days, Still Present Location: Pain At: - left flank, port area, Radiates To: - back Associated Signs And Symptoms: Positive: Confusion - since improved, Weakness, Diarrhea, Back Pain, Fever, Other - pain near port, brown-colored and malodorous urine - Allergies/Home Medications Allergies/Adverse Reactions: Allergies Allergy/AdvReac Type Severity Reaction Status Date / Time ibuprofen [From Motrin] Allergy Agitation Verified 12/01/18 17:46 Home Medications: Home Medications Oxycodone HCl/Acetaminophen [Oxycodone/Acetaminophen] 1 tab PO Q4H 12/17/18 [ History Confirmed 12/17/18] PMH/Surg Hx/FS Hx/Imm Hx Endocrine/Hematology History: Reports: Other Endocrine/Hematological Disorders - (right) adrenal mass Denies: Hx Diabetes Cardiovascular History: Reports: Hx Hypertension - meds Denies: Hx Pacemaker/ICD Respiratory History: Reports: Hx Sleep Apnea - evaluation for 12/2013, Other Respiratory Problems/Disorders - ex-smoker Denies: Hx Asthma GI History: Reports: Other GI Disorders - hx inguinal hernia repair History: Reports: Other Problems/Disorders - hx UTI's Denies: Hx Kidney Stones, Hx Renal Disease Sensory History: Reports: Hx Contacts or Glasses Denies: Hx Hearing Aid Opthamlomology History: Reports: Hx Contacts or Glasses Neurological History: Reports: Other Neuro Impairments/Disorders - 05/2011 bilateral subdural hematoma evac d/t trauma Psychiatric History: Reports: Other Psychiatric Issues/Disorders - hx cocaine abuse Denies: Hx Panic Disorder - Cancer History Cancer Type, Location and Year: LUNG CA - on chemo Hx Chemotherapy: Yes - Surgical History Surgery Procedure, Year, and Place: 06/2011- (left) inguinal hernia repair, ( right) inguinal hernia repair as a child. [place] hole surgery d/t subdural hematoma. HIP REPLACEMENT Infectious Disease History: No Infectious Disease History: Denies: History Other Infectious Disease, Traveled Outside the [place] in Last 30 Days - Family History Known Family History: Positive: Hypertension, Diabetes - Social History Alcohol Use: None Substance Use Type: Reports: None Substance Use Comment - Amount & Last Used: States past not current Smoking Status (MU): Former Smoker Type: Cigarettes, Cigars Amount Used/How Often: 1/2 PPD Have You Smoked in the Last Year: Yes Review of Systems Constitutional: Other - positive - dehydration Positive: Fever, Fatigue Positive: Diarrhea Genitourinary: Other - positive - malodorous and brown urine Positive: flank pain Musculoskeletal: Other - positive - back pain, pain near port Neurological: Other - positive - confusion, since improved All Other Systems Reviewed And Are Negative: Yes Physical Exam - Summary Physical Exam Summary: Appearance: The patient is well-nourished in no acute distress and in no acute pain. Skin: The skin is warm and dry and skin color reflects adequate perfusion. HEENT: The head is normocephalic and atraumatic. The pupils are equal and reactive. The conjunctivae are clear and without drainage. Nares are patent and without drainage. Mouth reveals moist mucous membranes and the throat is without erythema and exudate. The external ears are intact. The ear canals are patent and without drainage. The tympanic membranes are intact. Neck: The neck is supple with full range of motion and non-tender. There are no carotid bruits. There is no neck vein distemension. Respiratory: Chest is non-tender. Lungs are clear to auscultation and breath sounds are symmetrical and equal. Cardiovascular: Heart is regular rate and rhythm. There is no murmur or rub auscultated. There is no peripheral edema and pulses are symmetrical and equal. Abdomen: The abdomen is soft and non-tender. There are normal bowel sounds heard in all four quadrants and there is no organomegaly palpated. Musculoskeletal: There is no back tenderness noted. Extremities have full range of motion. There is good capillary refill. There is no peripheral edema or calf tenderness elicited. Drain in left chest. Tender along course external to ribs. Neurological: Patient is alert and oriented to person, place and time. The patient has symmetrical motor strength in all four extremities. Cranial nerves are grossly intact. Deep tendon reflexes are symmetrical and equal in all four extremities. Psychiatric: The patient has an appropriate affect and does not exhibit any anxiety or depression. Triage Information Reviewed: Yes Vital Signs On Initial Exam: Initial Vitals Temp Pulse Resp BP Pulse Ox 99.6 F 95 20 141/97 98 12/17/18 12:08 12/17/18 12:08 12/17/18 12:08 12/17/18 12:08 12/17/18 12:08 Vital Signs Reviewed: Yes Diagnostics - Vital Signs Vital Signs Temp Pulse Resp BP Pulse Ox 12/17/18 12:08 99.6 F 95 20 141/97 98 - Laboratory Result Diagrams: 12/17/18 12:48 12/17/18 12:49 Lab Statement: Any lab studies that have been ordered have been reviewed, and results considered in the medical decision making process. - Radiology CXR Radiology Interpretation Completed By: Radiologist Summary of Radiographic Findings: CXR reveals, per radiologist, IMPRESSION: MODERATE SIZE LEFT PLEURAL EFFUSION, UNCHANGED. ED physician has reviewed this radiology report. - EKG 1234 Cardiac Rate: NL EKG Rhythm: Sinus Rhythm Summary of EKG Findings: EKG reveals normal sinus rhythm, normal ST, no ectopy, no STEMI. Re-Evaluation - Re-Evaluation First Eval Re-Evaluation Time: 16:58 Comment: Upon discharge, patient is noted to have wet bandages around port with purulent drainage. Surgery to be consulted. Complex Multi-Symp Course/Dx Course Of Treatment: Mr. Vidales presented complaining of weakness and some diarrhea with mild nausea and occasional vomiting. He is getting chemotherapy at this time for lung cancer. He was nontoxic in appearance with stable vitals aside from some tachycardia. He was given IV fluids, labs were checked and he was noted to be quite dehydrated on his laboratory work. I spoke with Dr. Aguilar about letting him go back home after rehydration and she was in agreement with this plan. After hydration, it was noted that there was some soaking of the dressing over his left chest strain. He states that it has been draining last but it is still draining. I spoke with Dr. Lewis who recommended follow-up with oncology after redressing the wound. - Diagnoses Provider Diagnoses: Dehydration - Physician Notifications Discussed Care Of Patient With: Nicolás Lewis Time Discussed With Above Provider: 17:02 Instructed by Provider To: Other - 1701 - Patient's case discussed with Dr. Lewis, Dr. Lewis states to redress the port and discharge the patient. Discharge - Sign-Out/Discharge Documenting (check all that apply): Patient Departure - Discharge Patient Received Moderate/Deep Sedation with Procedure: No - Discharge Plan Condition: Stable Disposition: HOME Patient Education Materials: Dehydration (ED) Referrals: Prudence Greer MD [Primary Care Provider] - 3 Days Alex Sparks MD [Medical Doctor] - 3 Days Additional Instructions: Follow up with Dr. Sparks within 2-3 days. RETURN TO THE EMERGENCY DEPARTMENT FOR CHANGING OR WORSENING SYMPTOMS. - Billing Disposition and Condition Condition: STABLE Disposition: Home - Attestation Statements Document Initiated by Scribe: Yes Documenting Scribe: MAGGIE MCHUGH Provider For Whom Carson is Documenting (Include Credential): CONSUELO SNEED MD Scribe Attestation: I, MAGGIE MCHUGH, scribed for CONSUELO SNEED MD on 12/17/18 at 2108. Scribe Documentation Reviewed: Yes Provider Attestation: The documentation as recorded by the scribe, MAGGIE MCHUGH accurately reflects the service I personally performed and the decisions made by me, CONSUELO SNEED MD Status of Scribe Document: Viewed
[2018-12-17 13:09] LABS: Hematocrit 30 % (42-52); Hemoglobin 9.8 g/dL (14.0-18.0); Mean Corpuscular HGB Conc 33 g/dL (31-36); Mean Corpuscular Hemoglobin 29 pg (27-31); Mean Corpuscular Volume 89 fL (80-94); Mean Platelet Volume 7.7 fL (7.4-10.4); Platelet Count 165 10^3/uL (150-450); Red Blood Count 3.39 10^6 /uL (4.18-5.48); Red Cell Distribution Width 18 % (10-15); White Blood Count 4.9 10^3/uL (3.5-10.8)
[2018-12-17 13:17] LABS: INR 1.26 (0.82-1.09)
[2018-12-17 13:26] LABS: Urine Appearance Cloudy; Urine Bacteria Absent (Absent); Urine Bilirubin Negative (Negative); Urine Blood Negative (Negative); Urine Color Amber; Urine Glucose 1+(50 mg/dL) (Negative); Urine Granular Casts Present (Absent); Urine Ketones Negative (Negative); Urine Nitrite Negative (Negative); Urine Protein 1+(30 mg/dL) (Negative); Urine Red Blood Cell Absent (Absent); Urine Specific Gravity 1.019 (1.010-1.030); Urine Squamous Epithelial Cell Present (Absent); Urine Urobilinogen Positive (Negative); Urine White Blood Cell Absent (Absent)
[2018-12-17 13:27] LABS: Albumin 3.1 g/dL (3.2-5.2); Albumin/Globulin Ratio 0.8 (1-3); C Reactive Protein 270.12 mg/L (<8.01); Calcium 8.7 mg/dL (8.6-10.3); EGFR African American 66.8 (>60); EGFR Non-African American 55.2 (>60); Globulin 3.8 g/dL (2-4); Potassium 4.1 mmol/L (3.5-5.0); Total Bilirubin 2.4 mg/dL (0.2-1.0); Total Protein 6.9 g/dL (6.4-8.9)
[2018-12-17 13:31] LABS: Troponin I 0.04 ng/mL (<0.04)
[2018-12-17 13:36] LABS: ABS Lymphocytes 0.9 10^3/ul (1.0-4.8); ABS Monocytes 0.3 10^3/ul (0-0.8); ABS Neutrophils 3.8 10^3/ul (1.5-7.7)
[2018-12-17 17:06] VITALS: BP 137/83
== END | disposition home or self-care (01) ==
LOC: ED 11:51
DX: E86.0 Dehydration (principal); J90 Pleural effusion, not elsewhere classified; C34.90 Malignant neoplasm of unspecified part of unspecified bronchus or lung; I10 Essential (primary) hypertension; Z79.899 Other long term (current) drug therapy; Z79.891 Long term (current) use of opiate analgesic; Z87.891 Personal history of nicotine dependence
CPT/HCPCS: 36415; 71045; 80053; 81003; 81015; 83605; 83880; 84484; 85025; 85060; 85610; 86140; 87040; 93005; 96360; 99283; A9270-GY; J1642

== ENCOUNTER 2018-12-18 13:06 | Inpatient (IN) | payer MEDICARE, MEDICAID ==
--- NOTE | 2018-12-18 13:24 | ED ---
Neurological HPI - HPI Summary HPI Summary: A 68 y/o male brought in by [facility] ambulance presents to [facility] with a chief complaint of weakness. Per triage note, he also reports left sided pain and rates his pain as a 5/10 in severity. The patient was discharged yesterday and was instructed to call Dr. Sparks this morning because the patient has stage [address] Sparks's office discussed the case with the cancer research center and the office called the patient back and instructed him to come to the ED. The patient reportedly woke up with morning with a fever. The patient came to the ED yesterday because he couldn't walk due to weakness, he had a fever, and felt dehydrated. The patient is not on any abx. His last time on abx was about 2.5 weeks ago. He denies smoking. - History of Current Complaint Chief Complaint: EDWeakness Stated Complaint: WEAKNESS L SIDE PAIN PER EMS Time Seen by Provider: 12/18/18 13:13 Hx Obtained From: Patient Onset/Duration: Sudden Onset, Started days ago, Still Present Timing: Constant Onset Severity: Moderate Current Severity: Moderate Pain Intensity: 5 Pain Scale Used: 0-10 Numeric Character: Weak Aggravating: Nothing Alleviating: Nothing Associated Signs and Symptoms: Positive: Fever - 101 at triage - Additional Pertinent History Primary Care Physician: [id number] - Allergy/Home Medications Allergies/Adverse Reactions: Allergies Allergy/AdvReac Type Severity Reaction Status Date / Time ibuprofen [From Motrin] Allergy Agitation Verified 12/01/18 17:46 PMH/Surg Hx/FS Hx/Imm Hx Endocrine/Hematology History: Reports: Other Endocrine/Hematological Disorders - (right) adrenal mass Denies: Hx Diabetes Cardiovascular History: Reports: Hx Hypertension - meds Denies: Hx Pacemaker/ICD Respiratory History: Reports: Hx Sleep Apnea - evaluation for 12/2013, Other Respiratory Problems/Disorders - ex-smoker Denies: Hx Asthma GI History: Reports: Other GI Disorders - hx inguinal hernia repair History: Reports: Other Problems/Disorders - hx UTI's Denies: Hx Kidney Stones, Hx Renal Disease Sensory History: Reports: Hx Contacts or Glasses Denies: Hx Hearing Aid Opthamlomology History: Reports: Hx Contacts or Glasses Neurological History: Reports: Other Neuro Impairments/Disorders - 05/2011 bilateral subdural hematoma evac d/t trauma Psychiatric History: Reports: Other Psychiatric Issues/Disorders - hx cocaine abuse Denies: Hx Panic Disorder - Cancer History Cancer Type, Location and Year: LUNG CA - on chemo Hx Chemotherapy: Yes - Surgical History Surgery Procedure, Year, and Place: 06/2011- (left) inguinal hernia repair, ( right) inguinal hernia repair as a child. [place] hole surgery d/t subdural hematoma. HIP REPLACEMENT Infectious Disease History: No Infectious Disease History: Denies: History Other Infectious Disease, Traveled Outside the [place] in Last 30 Days - Family History Known Family History: Positive: Hypertension, Diabetes - Social History Alcohol Use: None Substance Use Type: Reports: None Substance Use Comment - Amount & Last Used: States past not current Smoking Status (MU): Former Smoker Type: Cigarettes, Cigars Amount Used/How Often: 1/2 PPD Have You Smoked in the Last Year: Yes Review of Systems Positive: Fever - 101 at triage Positive: Weakness All Other Systems Reviewed And Are Negative: Yes Physical Exam - Summary Physical Exam Summary: Appearance: Well appearing, no pain distress Skin: warm, dry, reflects adequate perfusion Head/face: normal Eyes: EOMI, REYNA ENT: normal Neck: supple, non-tender Respiratory: decreased breath sounds on left side Cardiovascular: RRR, pulses symmetrical, catheter left chest with drainage Abdomen: non-tender, soft Musculoskeletal: normal, strength/ROM intact Neuro: normal, sensory motor intact, A&Ox3 Triage Information Reviewed: Yes Vital Signs On Initial Exam: Initial Vitals Temp Pulse Resp BP Pulse Ox 101 F 96 22 112/85 97 12/18/18 13:11 12/18/18 13:11 12/18/18 13:11 12/18/18 13:11 12/18/18 13:11 Vital Signs Reviewed: Yes Diagnostics - Vital Signs Vital Signs Temp Pulse Resp BP Pulse Ox 12/18/18 13:11 101 F 96 22 112/85 97 - Laboratory Result Diagrams: 12/18/18 13:56 12/18/18 13:56 Lab Statement: Any lab studies that have been ordered have been reviewed, and results considered in the medical decision making process. - Radiology CXR Radiology Interpretation Completed By: Radiologist Summary of Radiographic Findings: LEFT PLEURAL EFFUSION APPEARING SIMILAR TO THAT IDENTIFIED ON DECEMBER 17, 2018. ED physician has reviewed this imaging report. - EKG 14:09 Cardiac Rate: NL - 86 bpm EKG Rhythm: Sinus Rhythm Summary of EKG Findings: EKG at 14:09 showed NSR at 86 bpm, no acute changes. Course/Dx - Course Course Of Treatment: A 68 y/o male brought in by [facility] ambulance presents to [facility] with a chief complaint of weakness. The physical exam revealed decreased breath sounds on left side and pigtail catheter left chest with drainage. In the ED course the patient was given Sodium Chloride IV. CXR impression: LEFT PLEURAL EFFUSION APPEARING SIMILAR TO THAT IDENTIFIED ON DECEMBER 17, 2018. Blood work, chemistries and urines obtained. EKG at 14:09 showed NSR at 86 bpm, no acute changes. Case discussed with Dr. Ordonez, who recommended calling oncology. Discussed case with Dr. Bridger MD, and SOURAV Gao, who accepted the patient for admisison. The patient is agreeable with this plan. - Differential Dx Differential Diagnoses Neuro: Positive: Other - sepsis/pneumonia/p effussion - Diagnoses Provider Diagnoses: Pneumonia, Pleural effusion, Sepsis, Cancer of lung - Physician Notifications Discussed Care Of Patient With: Miki Ordonez Time Discussed With Above Provider: 14:48 Instructed by Provider To: Other - recommended calling oncology - Critical Care Time Critical Care Time: 30-74 min - 30 mins Discharge - Sign-Out/Discharge Documenting (check all that apply): Patient Departure - admit Patient Received Moderate/Deep Sedation with Procedure: No - Discharge Plan Condition: Fair Disposition: ADMITTED TO [facility] Referrals: Prudence Greer MD [Primary Care Provider] - - Billing Disposition and Condition Condition: FAIR Disposition: Admitted to [facility] - Attestation Statements Document Initiated by Jebe: Yes Documenting Scribe: Tim Morrow Provider For Whom Carson is Documenting (Include Credential): Jim Grey MD Scribe Attestation: Tim Willson, scribed for Jim Grey MD on 12/18/18 at 1751. Scribe Documentation Reviewed: Yes Provider Attestation: The documentation as recorded by the Tim prado accurately reflects the service I personally performed and the decisions made by me, Jim Grey MD Status of Scribe Document: Viewed Consult Consult: At 14:[address] Sparks, who will accept the patient for admission. At 16:30 Discussed case with SOURAV Gao, who will admit the patient.
[2018-12-18] MEDS ORDERED: Piperacillin/Tazobac ADVAN(*) 3.375 GM in NS 0.9% 100 ML* 100 ML IVPB ONE (13:29)
[2018-12-18] MEDS ORDERED: NS 0.9% 1000 ML** 1,000 ML IV.FLUID IV ONE (13:40)
[2018-12-18] MEDS ORDERED: Vancomycin(*) 2,000 MG in NS 0.9% 250 ML* 250 ML IVPB ONE (13:41)
[2018-12-18] MEDS ORDERED: NS 0.9% 250 ML* 250 ML ONE (13:48)
[2018-12-18 14:12] LABS: Hematocrit 28 % (42-52); Hemoglobin 9.2 g/dL (14.0-18.0); Mean Corpuscular HGB Conc 33 g/dL (31-36); Mean Corpuscular Hemoglobin 29 pg (27-31); Mean Corpuscular Volume 89 fL (80-94); Mean Platelet Volume 8.1 fL (7.4-10.4); Platelet Count 106 10^3/uL (150-450); Red Blood Count 3.12 10^6 /uL (4.18-5.48); Red Cell Distribution Width 18 % (10-15); White Blood Count 2.3 10^3/uL (3.5-10.8)
[2018-12-18 14:29] LABS: Albumin 3.2 g/dL (3.2-5.2); Albumin/Globulin Ratio 0.8 (1-3); BUN/Creatinine Ratio 28.2 (8-20); C Reactive Protein 269.15 mg/L (<8.01); Calcium 8.8 mg/dL (8.6-10.3); EGFR African American 56.6 (>60); EGFR Non-African American 46.8 (>60); Globulin 3.8 g/dL (2-4); Total Bilirubin 2.2 mg/dL (0.2-1.0)
[2018-12-18 14:34] LABS: Troponin I 0.05 ng/mL (<0.04)
[2018-12-18 14:37] LABS: ABS Lymphocytes 0.6 10^3/ul (1.0-4.8); ABS Monocytes 0.4 10^3/ul (0-0.8); ABS Neutrophils 1.3 10^3/ul (1.5-7.7); Eosinophil % 0.2 %; Lymphocyte % 26.7 %; Nucleated Red Blood Cells % 0.1
[2018-12-18 14:38] LABS: Activated Partial Thrombo Time 31.9 seconds (26.0-38.0); INR 1.24 (0.82-1.09)
[2018-12-18] MEDS ORDERED: Vancomycin(*) 2,000 MG in NS 0.9% 500 ML* 500 ML IVPB ONE (15:15)
[2018-12-18 15:53] LABS: Urine Appearance Cloudy; Urine Bilirubin Negative (Negative); Urine Blood Negative (Negative); Urine Color Amber; Urine Glucose Negative (Negative); Urine Ketones Negative (Negative); Urine Nitrite Negative (Negative); Urine Protein Negative (Negative); Urine Specific Gravity 1.016 (1.010-1.030); Urine Urobilinogen Positive (Negative)
[2018-12-18 18:12] LABS: Troponin I 0.04 ng/mL (<0.04)
[2018-12-18] MEDS ORDERED: ZOSYN 3.375 GM Q8H per EXTENDED INFUSION IVPB SCH ×2 (18:30)
[2018-12-18] MEDS ORDERED: Zosyn per Pharmacy* NOTE FOLLOW UP SCH (19:00)
[2018-12-18] MEDS ORDERED: Vancomycin per Pharmacy* NOTE FOLLOW UP PRN (20:34)
[2018-12-18] MEDS: NS 0.9% 1000 ML** 1,000 ML IV SCH (21:07)
[2018-12-18] MEDS: Enoxaparin(*) 40 MG/0.4 ML SYR SUBCUT SCH (21:32)
[2018-12-18] MEDS: Morphine 4 MG/ML VIAL (1 ml) 4 MG/ML VIAL IV PRN (21:33)
--- NOTE | 2018-12-18 23:34 | HP ---
CC: Dr. Greer * ADMISSION HISTORY AND PHYSICAL: DATE OF ADMISSION: 12/18/18 PRIMARY CARE PROVIDER: Dr. Greer. PRIMARY ONCOLOGIST/ATTENDING PHYSICIAN: Dr. Alex Sparks.* (DICTATED BY SOURAV ZAVALETA) ADMITTING PROVIDER: SOURAV Zavaleta CHIEF COMPLAINT: Weakness and fever. HISTORY OF PRESENT ILLNESS: This is a 68-year-old gentleman under the care of Dr. Sparks for metastatic non-small cell lung cancer who presented to the emergency department earlier today with complaints of weakness and fever. The patient was seen in the emergency department yesterday with similar complaints and was discharged with instructions to follow up in the oncology clinic today. The patient's family contacted the clinic stating that he was too weak to make it in and he was given instructions to proceed to the emergency department. Upon arriving in the emergency department, the patient was noted to be febrile and had some purulent drainage appreciated around the PleurX site. The patient states that he last drained the PleurX about a week and a half ago and got a very small volume of cranberry colored fluid out. He denies any shortness of breath, cough, or chest pain, but he does have some tenderness along the left chest wall. The patient has been draining his own PleurX and doing his own dressing changes. He often leaves the catheter site undressed and covered by clothing only. The patient is under active treatment for his metastatic non-small cell lung cancer treated with carboplatin, pemetrexed, and pembrolizumab with the 4th cycle starting on 12/11/2018. His significant other notes that he has been progressively weak, but up until this point, he has tolerated chemotherapy relatively well. The patient has the left PleurX in place for a malignant pleural effusion and the volume of fluid has been decreasing over the last several weeks. PAST MEDICAL HISTORY: 1. Metastatic non-small cell lung cancer. 2. Hypertension. 3. Sleep apnea. PAST SURGICAL HISTORY: 1. Keri hole craniotomy for subdural hematoma. 2. Total hip replacement. HOME MEDICATIONS: 1. Lisinopril/hydrochlorothiazide 20/25 one tablet p.o. daily. 2. Oxycodone/acetaminophen 1 tablet p.o. q.4 hours as needed for pain or fever. 3. Metoprolol succinate 25 mg p.o. daily. FAMILY HISTORY: The patient has 6 siblings, one brother of dementia and another of an SD, and another brother with severe cirrhosis. The patient' s mother passed of a pneumothorax and his sister with breast cancer and father with mesothelioma. SOCIAL HISTORY: The patient is single, but lives with his significant other. He has a 40-pack year smoking history, quit approximately 5 years ago. Occasional alcohol consumption. REVIEW OF SYSTEMS: As noted above in HPI, all other systems reviewed and otherwise negative. PHYSICAL EXAMINATION GENERAL: This is a mildly ill-appearing 68-year-old gentleman, mildly lethargic , but in no acute distress, and accompanied by his significant other. INITIAL VITALS: Temperature of 101 degrees Fahrenheit, pulse 96 beats per minute, respiratory rate of 22, oxygen saturation 97% on room air, and blood pressure 112/85 mmHg. HEENT: Head is normocephalic, atraumatic. Mucous membranes are pink and moist. RESPIRATORY: Few diminished lung sounds at bases, but otherwise clear to auscultation without wheezes, crackles, or rhonchi. Chest: The patient has a left PleurX catheter in place secured with dry gauze with some scant purulent drainage noted. There is some purulent material noted around the PleurX site. Along the left chest wall, there is an area of approximately 3 x 6 cm that is slightly raised and indurated with a small area of fluctuance. CARDIOVASCULAR: Heart has a regular rate and rhythm without murmurs, rubs, or gallops. ABDOMEN: Soft and nontender to palpation. EXTREMITIES: No edema. DIAGNOSTIC STUDIES/LAB DATA: CBC shows a white blood cell count of 2300 and AMC of 1300, hemoglobin of 9.2, platelet count of 106,000. Comprehensive metabolic panel shows a sodium of 129 mmol/L, potassium of 4.0, serum bicarb of 23, BUN of 42, creatinine of 1.49. Initial lactic acid 1.6, on repeat 0.9. Initial troponin 0.05, on repeat 0.04. C-reactive protein 269. Urine analysis is positive for urobilinogen and otherwise unremarkable. Imaging: Chest x-ray shows a left pleural effusion similar to that seen on the day prior. ASSESSMENT AND PLAN: This is a 68-year-old gentleman with metastatic non-small cell lung cancer with cycle 4 of carboplatin, pemetrexed, and pembrolizumab starting 12/11/18, who presented to the emergency department with complaints of weakness and fever, found to have what appears to be an infected left PleurX catheter. The patient has evidence of associated sepsis and will be subsequently admitted to the hospital for appropriate treatment. Based on the appearance of the PleurX catheter, this should be removed and we will request consultation from surgical team as to whether the area of induration of fluctuance adjacent to the PleurX catheter site should be incised or drained. We will maintain broad spectrum coverage with Zosyn. The patient received both vanco and Zosyn in the emergency department. 1. Infected PleurX catheter: The PleurX catheter was accessed and drained approximately 450 mL of rather dark yellow and opaque fluid. This will be sent for culture to determine whether his pleural effusion is also infected. As noted above, we will request surgical consultation for removal of PleurX catheter and opinion as to whether incision and drainage of the adjacent indurated region with fluctuance is appropriate. Cultures of both the PleurX site and pleural effusion as well as blood cultures have been sent. We will continue coverage with Zosyn and await cultures to further guide antibiotic therapy. 2. Metastatic non-small cell lung cancer: This is day 7 of cycle 4 of carboplatin, pemetrexed, and pembrolizumab. He is not neutropenic, but may still be entering his amanda and will monitor closely for neutropenia. He is mildly thrombocytopenic and anemic secondary to chemotherapy at this time. 3. Hypertension: The patient is normotensive in the emergency department. We will hold his diuretic and NATALIE inhibitor, continue his metoprolol at this time. 4. DVT prophylaxis: The patient will be started on Lovenox 40 mg subcu daily. 5. Code status: The patient is full code. 6. Disposition: The patient is being admitted to inpatient status with anticipated length of stay to be greater than 2 midnights. SOURAV ZAVALETA [id number]/[facility] #: [id number] [facility]
[2018-12-19] MEDS: Acetaminophen TAB* 325 MG PO PRN (02:47)
[2018-12-19] MEDS: Cefepime* 2 GM in Dextrose 50mL Q12H (Duplex) IV SCH ×2 (04:25→18:24)
[2018-12-19] MEDS: Morphine 4 MG/ML VIAL (1 ml) 4 MG/ML VIAL IV PRN ×2 (04:34→10:30)
[2018-12-19] MEDS ORDERED: Vancomycin Random Level* NOTE FOLLOW UP ONE (06:00)
[2018-12-19 06:15] LABS: Hematocrit 24 % (42-52); Hemoglobin 8.1 g/dL (14.0-18.0); Mean Corpuscular HGB Conc 34 g/dL (31-36); Mean Corpuscular Hemoglobin 30 pg (27-31); Mean Corpuscular Volume 88 fL (80-94); Mean Platelet Volume 8.6 fL (7.4-10.4); Platelet Count 66 10^3/uL (150-450); Red Blood Count 2.72 10^6 /uL (4.18-5.48); Red Cell Distribution Width 18 % (10-15); White Blood Count 2.3 10^3/uL (3.5-10.8)
[2018-12-19 06:30] LABS: Albumin 2.7 g/dL (3.2-5.2); Albumin/Globulin Ratio 0.8 (1-3); BUN/Creatinine Ratio 29.7 (8-20); EGFR African American 88.6 (>60); EGFR Non-African American 73.2 (>60); Globulin 3.2 g/dL (2-4); Potassium 3.4 mmol/L (3.5-5.0); Total Bilirubin 1.2 mg/dL (0.2-1.0); Total Protein 5.9 g/dL (6.4-8.9)
[2018-12-19 06:45] LABS: ABS Lymphocytes 0.8 10^3/ul (1.0-4.8); ABS Monocytes 0.4 10^3/ul (0-0.8)
[2018-12-19] MEDS: Metoprolol Succinate XL TAB* 25 MG PO SCH (10:16)
[2018-12-19] MEDS: Vancomycin(*) 1,250 MG in NS 0.9% 250 ML* 250 ML IVPB SCH ×2 (10:17→21:42)
[2018-12-19] MEDS: NS 0.9% 1000 ML** 1,000 ML IV SCH (10:21)
--- NOTE | 2018-12-19 12:08 | PN ---
Progress Note - Progress Note Date of Service: 12/19/18 SOAP: Subjective: [patient reports feeling a little better this am. Some L chest wall discomfort persists. No dyspnea or pleuritic pain.] Objective: [ Vital Signs: Temp Pulse Resp BP Pulse Ox 101 F 88 20 149/94 100 12/19/18 02:21 12/19/18 02:21 12/19/18 10:30 12/19/18 02:21 12/19/18 02:21 Acetaminophen (Tylenol Tab*) 650 mg PO Q6H PRN PRN Reason: FEVER Last Admin: 12/19/18 02:47 Dose: 650 mg Enoxaparin Sodium (Lovenox(*)) 40 mg SUBCUT Q24H [facility] Last Admin: 12/18/18 21:32 Dose: 40 mg Sodium Chloride (Ns 0.9% 1000 Ml) 1,000 mls @ 100 mls/hr IV PER RATE [facility] Last Admin: 12/19/18 10:21 Dose: 100 mls/hr Cefepime HCl (Maxipime 2 Gm In Dextrose Duplex (*)) 2 gm in 50 mls @ 100 mls/ hr IV Q12H [facility] Last Admin: 12/19/18 04:25 Dose: 100 mls/hr Vancomycin HCl 1,250 mg/ (Sodium Chloride) 250 mls @ 166.667 mls/hr IVPB Q12H [facility] Last Admin: 12/19/18 10:17 Dose: 166.667 mls/hr Metoprolol Succinate (Toprol Xl Tab*) 25 mg PO DAILY [facility] Last Admin: 12/19/18 10:16 Dose: 25 mg Morphine Sulfate (Morphine 4 Mg/Ml Vial (1 Ml)) 4 mg IV Q4H PRN PRN Reason: PAIN Last Admin: 12/19/18 10:30 Dose: 4 mg Oxycodone HCl (Roxycodone Tab*) 5 mg PO Q4H PRN PRN Reason: PAIN Pharmacy Consult (Vancomycin Per Pharmacy*) 1 note FOLLOW UP . PRN PRN Reason: PER PROTOCOL Pharmacy Profile Note (Vancomycin Trough Check) 1 note FOLLOW UP 0900 ONE Stop: 12/21/18 09:01 Laboratory Results - last 24 hr 12/18/18 12/18/18 12/18/18 13:56 13:56 13:56 WBC 2.3 L RBC 3.12 L Hgb 9.2 L Hct 28 L MCV 89 MCH 29 MCHC 33 RDW 18 H Plt Count 106 L MPV 8.1 Neut % (Auto) 57.3 Lymph % (Auto) 26.7 [place] % (Auto) 15.7 Eos % (Auto) 0.2 Baso % (Auto) 0.1 Absolute Neuts (auto) 1.3 L Absolute Lymphs (auto) 0.6 L Absolute Monos (auto) 0.4 Absolute Eos (auto) 0.0 Absolute Basos (auto) 0.0 Absolute Nucleated RBC 0.0 Immature Gran % 1.0 Neutrophils % 58.0 Band Neutrophils % 1.0 Lymphocytes % 29.0 Monocytes % 12.0 Basophils % Nucleated RBC % 0.1 Dohle Bodies Present Normal RBC Morphology Normal Hypochromasia Anisocytosis Hem Pathologist Commnt INR (Anticoag Therapy) 1.24 H APTT 31.9 Sodium 129 L Potassium 4.0 Chloride 97 L Carbon Dioxide 23 Anion Gap 9 BUN 42 H Creatinine 1.49 H Est GFR ( Amer) 56.6 Est GFR (Non-Af Amer) 46.8 BUN/Creatinine Ratio 28.2 H Glucose 118 H Lactic Acid Calcium 8.8 Total Bilirubin 2.20 H AST 64 H ALT 34 Alkaline Phosphatase 49 Troponin I 0.05 H* C-Reactive Protein 269.15 H B-Natriuretic Peptide Total Protein 7.0 Albumin 3.2 Globulin 3.8 Albumin/Globulin Ratio 0.8 L Urine Color Urine Appearance Urine pH Ur Specific [place] Urine Protein Urine Ketones Urine Blood Urine Nitrate Urine Bilirubin Urine Urobilinogen Ur Leukocyte Esterase Urine Glucose Random Vancomycin 12/18/18 12/18/18 12/18/18 13:56 13:56 15:42 WBC RBC Hgb Hct MCV MCH MCHC RDW Plt Count MPV Neut % (Auto) Lymph % (Auto) [place] % (Auto) Eos % (Auto) Baso % (Auto) Absolute Neuts (auto) Absolute Lymphs (auto) Absolute Monos (auto) Absolute Eos (auto) Absolute Basos (auto) Absolute Nucleated RBC Immature Gran % Neutrophils % Band Neutrophils % Lymphocytes % Monocytes % Basophils % Nucleated RBC % Dohle Bodies Normal RBC Morphology Hypochromasia Anisocytosis Hem Pathologist Commnt INR (Anticoag Therapy) APTT Sodium Potassium Chloride Carbon Dioxide Anion Gap BUN Creatinine Est GFR ( Amer) Est GFR (Non-Af Amer) BUN/Creatinine Ratio Glucose Lactic Acid 1.6 Calcium Total Bilirubin AST ALT Alkaline Phosphatase Troponin I C-Reactive Protein B-Natriuretic Peptide 71 Total Protein Albumin Globulin Albumin/Globulin Ratio Urine Color [place] Urine Appearance Cloudy Urine pH 5.0 Ur Specific [place] 1.016 Urine Protein Negative Urine Ketones Negative Urine Blood Negative Urine Nitrate Negative Urine Bilirubin Negative Urine Urobilinogen Positive A Ur Leukocyte Esterase Negative Urine Glucose Negative Random Vancomycin 12/18/18 12/18/18 12/19/18 17:41 17:41 05:40 WBC 2.3 L RBC 2.72 L Hgb 8.1 L Hct 24 L MCV 88 MCH 30 MCHC 34 RDW 18 H Plt Count 66 L D MPV 8.6 Neut % (Auto) Not Reportable Lymph % (Auto) Not Reportable [place] % (Auto) Not Reportable Eos % (Auto) Not Reportable Baso % (Auto) Not Reportable Absolute Neuts (auto) 1.0 L Absolute Lymphs (auto) 0.8 L Absolute Monos (auto) 0.4 Absolute Eos (auto) 0.0 Absolute Basos (auto) 0.0 Absolute Nucleated RBC 0.0 Immature Gran % Neutrophils % 40.0 Band Neutrophils % Lymphocytes % 48.0 Monocytes % 11.0 Basophils % 1.0 Nucleated RBC % Not Reportable Dohle Bodies Normal RBC Morphology Not Reportable Hypochromasia 1+ Anisocytosis 2+ Hem Pathologist Commnt INR (Anticoag Therapy) APTT Sodium Potassium Chloride Carbon Dioxide Anion Gap BUN Creatinine Est GFR ( Amer) Est GFR (Non-Af Amer) BUN/Creatinine Ratio Glucose Lactic Acid 0.9 Calcium Total Bilirubin AST ALT Alkaline Phosphatase Troponin I 0.04 H* C-Reactive Protein B-Natriuretic Peptide Total Protein Albumin Globulin Albumin/Globulin Ratio Urine Color Urine Appearance Urine pH Ur Specific [place] Urine Protein Urine Ketones Urine Blood Urine Nitrate Urine Bilirubin Urine Urobilinogen Ur Leukocyte Esterase Urine Glucose Random Vancomycin 12/19/18 05:40 WBC RBC Hgb Hct MCV MCH MCHC RDW Plt Count MPV Neut % (Auto) Lymph % (Auto) [place] % (Auto) Eos % (Auto) Baso % (Auto) Absolute Neuts (auto) Absolute Lymphs (auto) Absolute Monos (auto) Absolute Eos (auto) Absolute Basos (auto) Absolute Nucleated RBC Immature Gran % Neutrophils % Band Neutrophils % Lymphocytes % Monocytes % Basophils % Nucleated RBC % Dohle Bodies Normal RBC Morphology Hypochromasia Anisocytosis Hem Pathologist Commnt INR (Anticoag Therapy) APTT Sodium 133 L Potassium 3.4 L Chloride 103 Carbon Dioxide 21 L Anion Gap 9 BUN 30 H Creatinine 1.01 Est GFR ( Amer) 88.6 Est GFR (Non-Af Amer) 73.2 BUN/Creatinine Ratio 29.7 H Glucose 183 H Lactic Acid Calcium 8.0 L Total Bilirubin 1.20 H AST 54 H ALT 28 Alkaline Phosphatase 43 Troponin I C-Reactive Protein B-Natriuretic Peptide Total Protein 5.9 L Albumin 2.7 L Globulin 3.2 Albumin/Globulin Ratio 0.8 L Urine Color Urine Appearance Urine pH Ur Specific [place] Urine Protein Urine Ketones Urine Blood Urine Nitrate Urine Bilirubin Urine Urobilinogen Ur Leukocyte Esterase Urine Glucose Random Vancomycin 9.0 Exam: Gen: relatively well appearing 68 yo male in NAD HEENT: MMM CV: RRR, no m/r/g Resp: CTA, no w/c/r Chest: pleurex catheter in place, raised indurated region with central fluctuance over L lateral chest wall Abd: soft nonTTP Ext: no edema] Assessment: [68 yo male with metastatic lung cancer currently C4D9 of carboplatin/pemetrexed /pembrolizumab who presented with weakness and fever. It appears that his Pleurex catheter has become infected. Wound culture has grown MRSA and he has what appears to be a chest wall abscess adjacent to the pleurex site.] Plan: [1. Sepsis with infected pleurex catheter - catheter site is growing MRSA and he appears to have an adjacent chest wall abscess - requested surgical consultation for pleurex removal and likely I&D of adjacent abscess - question is whether his effusion is also infected an he now has an empyema - at admission his pleurex was drained ~400 ml of opaque fluid and culture is pending - blood cultures also pending - cont Vanco for MRSA as well as Cefepime as he is now neutropenic as well 2. Metastatic lung CA - C4D9, still nadiring - ANC 1000 today - neutropenic precautions - cont vanco/cefepime for above infection - further chemo will be held until infection has resolved 3. Lovenox 40 mg SQ daily for DVT prophylaxis 4. FULL CODE Dispo: requires cont inpt care
[2018-12-19] MEDS: oxyCODONE TAB* 5 MG TAB PO PRN (19:38)
[2018-12-19] MEDS: Enoxaparin(*) 40 MG/0.4 ML SYR SUBCUT SCH (19:38)
--- NOTE | 2018-12-19 20:20 | BRIEFOPN ---
Brief Operative Note - Surgery Procedures: PRE/POST PROCEDURE DX: INFECTED PLEURX CATHETER AND ABSCESS OF LEFT CHEST WALL PROC: REMOVAL OF PLEURX CATHETER AND DRAINAGE OF ABSCESS OF LEFT CHEST WALL SURG: MECENAS ANES: LOCAL SPEC: FLUID CX DRAIN: 1/4 INCH ANETTE X 2 COMPL: NONE COND: STABLE FINDINGS: DICTATED.
--- NOTE | 2018-12-19 22:01 | PRO ---
CC: UDAY PROCEDURE REPORT: DATE OF PROCEDURE: 12/19/18 PREPROCEDURE DIAGNOSES: 1. Infection of left PleurX catheter. 2. Subcutaneous chest wall abscess. POSTPROCEDURE DIAGNOSES: 1. Infection of left PleurX catheter. 2. Subcutaneous chest wall abscess. PROCEDURE: Removal of left PleurX catheter and incision and drainage of left chest wall abscess. SURGEON: Trenton Noguera MD PRINTING MECHANIST: None. ANESTHESIA: 1% lidocaine with epinephrine used locally. ESTIMATED BLOOD LOSS: Minimal. IV FLUIDS: None. DRAINS: 0.25-inch [place] x2. COMPLICATIONS: None. DESCRIPTION OF PROCEDURE: The patient was positioned semi-King in the procedure room. Left arm wa s elevated. He was prepped and draped in sterile fashion and time-out was performed. Local anesthetic was infiltrated along the course of the catheter into the skin and soft tissue. At the exit site, the catheter was identified. There was purulent fluid draining from this site. The e xit site was enlarged in line with longitudinal axis of the catheter, and then with gentle traction o n the catheter, the catheter was able to be withdrawn. There was an area of fluctuance more posterio rly on the left chest wall and this area was also infiltrated with anesthetic and incised and additio nal purulent fluid was draining from this site. Cultures were taken of this site and submitted. The pus was drained from each site and then each site was intubated with 0.25-inch silastic [place] and t his was sutured to the skin at each site with 3-0 Prolene. Dressings were applied. The patient joesphe rated the procedure well. He returned to his room in stable condition. [id number]/[facility] #: [id number]
[2018-12-20] MEDS: Cefepime* 2 GM in Dextrose 50mL Q12H (Duplex) IV SCH ×2 (04:10→16:36)
[2018-12-20] MEDS: NS 0.9% 1000 ML** 1,000 ML IV SCH ×2 (05:43→16:35)
[2018-12-20 06:40] LABS: BUN/Creatinine Ratio 29.1 (8-20); EGFR African American 117.7 (>60); EGFR Non-African American 97.2 (>60); Potassium 3.3 mmol/L (3.5-5.0)
[2018-12-20 06:41] LABS: Hematocrit 23 % (42-52); Hemoglobin 7.4 g/dL (14.0-18.0); Mean Corpuscular HGB Conc 33 g/dL (31-36); Mean Corpuscular Hemoglobin 29 pg (27-31); Mean Corpuscular Volume 89 fL (80-94); Mean Platelet Volume 7.9 fL (7.4-10.4); Platelet Count 41 10^3/uL (150-450); Red Blood Count 2.53 10^6 /uL (4.18-5.48); Red Cell Distribution Width 17 % (10-15); White Blood Count 2.2 10^3/uL (3.5-10.8)
[2018-12-20 09:36] LABS: Magnesium 1.4 mg/dL (1.9-2.7)
[2018-12-20 09:41] LABS: ABS Lymphocytes 0.7 10^3/ul (1.0-4.8); ABS Monocytes 0.6 10^3/ul (0-0.8); ABS Neutrophils 0.9 10^3/ul (1.5-7.7); Eosinophil % 0.1 %; Lymphocyte % 30.8 %; Nucleated Red Blood Cells % 0.2
[2018-12-20] MEDS: Metoprolol Succinate XL TAB* 25 MG PO SCH (10:33)
[2018-12-20] MEDS: Vancomycin(*) 1,250 MG in NS 0.9% 250 ML* 250 ML IVPB SCH ×2 (10:33→22:55)
[2018-12-20] MEDS ORDERED: Magnesium Sulf 4 GM/100 ML IV* 4,000 MG/100 ML BAG IVPB ONE (10:39)
--- NOTE | 2018-12-20 11:13 | PN ---
Progress Note - Progress Note Date of Service: 12/20/18 SOAP: Subjective: [Doing well, but trouble sleeping at night. Tolerated pulling pleurex and abscess I&D without difficulty. Tmax 100.2 in last 24h.] Objective: [ Vital Signs: Temp Pulse Resp BP Pulse Ox 100.0 F 68 20 137/77 100 12/20/18 07:00 12/20/18 07:00 12/20/18 08:00 12/20/18 07:00 12/20/18 08:00 Acetaminophen (Tylenol Tab*) 650 mg PO Q6H PRN PRN Reason: FEVER Last Admin: 12/19/18 02:47 Dose: 650 mg Filgrastim-Sndz (Zarxio*) 480 mcg SUBCUT DAILY [facility] Sodium Chloride (Ns 0.9% 1000 Ml) 1,000 mls @ 100 mls/hr IV PER RATE [facility] Last Admin: 12/20/18 05:43 Dose: 100 mls/hr Cefepime HCl (Maxipime 2 Gm In Dextrose Duplex (*)) 2 gm in 50 mls @ 100 mls/ hr IV Q12H [facility] Last Admin: 12/20/18 04:10 Dose: 100 mls/hr Vancomycin HCl 1,250 mg/ (Sodium Chloride) 250 mls @ 166.667 mls/hr IVPB Q12H [facility] Last Admin: 12/20/18 10:33 Dose: 166.667 mls/hr Magnesium Sulfate (Magnesium Sulf 4 Gm/100 Ml Iv*) 4,000 mg in 100 mls @ 33.333 mls/hr IVPB ONCE ONE Stop: 12/20/18 13:38 Potassium Chloride (Potassium Chloride 10 Meq/50 Ml Ivpremix*) 10 meq in 50 mls @ 50 mls/hr IV Q1H [facility] Stop: 12/20/18 13:59 Lorazepam (Ativan Tab(*)) 1 mg PO BEDTIME [facility] Metoprolol Succinate (Toprol Xl Tab*) 25 mg PO DAILY [facility] Last Admin: 12/20/18 10:33 Dose: 25 mg Morphine Sulfate (Morphine 4 Mg/Ml Vial (1 Ml)) 4 mg IV Q4H PRN PRN Reason: PAIN Last Admin: 12/19/18 10:30 Dose: 4 mg Oxycodone HCl (Roxycodone Tab*) 5 mg PO Q4H PRN PRN Reason: PAIN Last Admin: 12/19/18 19:38 Dose: 5 mg Pharmacy Consult (Vancomycin Per Pharmacy*) 1 note FOLLOW UP . PRN PRN Reason: PER PROTOCOL Pharmacy Profile Note (Vancomycin Trough Check) 1 note FOLLOW UP 0900 ONE Stop: 12/21/18 09:01 Laboratory Results - last 24 hr 12/19/18 12/20/18 12/20/18 05:40 05:39 05:39 WBC 2.2 L RBC 2.53 L Hgb 7.4 L Hct 23 L MCV 89 MCH 29 MCHC 33 RDW 17 H Plt Count 41 L MPV 7.9 Neut % (Auto) 41.1 Lymph % (Auto) 30.8 [place] % (Auto) 27.6 Eos % (Auto) 0.1 Baso % (Auto) 0.4 Absolute Neuts (auto) 0.9 L Absolute Lymphs (auto) 0.7 L Absolute Monos (auto) 0.6 Absolute Eos (auto) 0.0 Absolute Basos (auto) 0.0 Absolute Nucleated RBC 0.0 Neutrophils % 41.0 Lymphocytes % 38.0 Monocytes % 21.0 Nucleated RBC % 0.2 Normal RBC Morphology Normal Hem Pathologist Commnt Sodium 134 L Potassium 3.3 L Chloride 105 Carbon Dioxide 21 L Anion Gap 8 BUN 23 Creatinine 0.79 Est GFR ( Amer) 117.7 Est GFR (Non-Af Amer) 97.2 BUN/Creatinine Ratio 29.1 H Glucose 113 H Calcium 8.0 L Magnesium 1.4 L Exam: Gen: relatively well appearing but fatigued 68 yo male in NAD HEENT: MMM CV: RRR, no m/r/g Resp: CTA, no w/c/r Chest: clean, dry dressing in place over L chest wall. Abscess s/p I&D with michael drain in place. Abd: soft nonTTP Ext: no edema] Assessment: [68 yo male with metastatic lung cancer currently C4D10 of carboplatin/ pemetrexed/pembrolizumab who presented with weakness and fever. His pleurex catheter is infected with MRSA as is his pleural effusion. He is s/p pulling of his Pleurex and I&D of chest wall abscess.] Plan: [1. Sepsis with MRSA infected pleurex catheter and empyema - clinically improving - s/p I&D of chest wall abscess and pulling of infected pleurex catheter - blood cultures negative - will request ID consultation for management of empyema, would like benefit from drain placement with IR - cont Vanco for MRSA as well as Cefepime as he is now neutropenic as well 2. Metastatic lung CA - C4D10, still nadiring - ANC 900 today - seeing as his counts continue to drop in the setting of a severe infection will start Neupogen at the recommendation of Dr Sparks - neutropenic precautions - cont vanco/cefepime for above infection - further chemo will be held until infection has resolved 3. DVT prophylaxis - hold Lovenox as plts <50K, resume when plts >50K 4. FULL CODE Dispo: requires cont inpt care]
[2018-12-20] MEDS: FILGRASTIM-SNDZ* 480 MCG/0.8 ML SYRINGE SUBCUT SCH (11:57)
[2018-12-20] MEDS: Morphine 4 MG/ML VIAL (1 ml) 4 MG/ML VIAL IV PRN (12:09)
[2018-12-20] MEDS ORDERED: Senna TAB PO PRN (15:08)
[2018-12-20] MEDS ORDERED: Polyethylene Glycol 3350* 17 GM PACKET PO ONE (16:00)
[2018-12-20] MEDS: KCL 10 MEQ/50 ML IVPREMIX* 10 MEQ/50 ML BAG IV SCH ×2 (16:03→16:04)
[2018-12-20] MEDS: LORazepam TAB(*) 1 MG PO SCH (22:08)
[2018-12-20] MEDS: Docusate CAP* 100 MG PO SCH (23:02)
[2018-12-20] MEDS: Acetaminophen TAB* 325 MG PO PRN (23:18)
[2018-12-21] MEDS: Cefepime* 2 GM in Dextrose 50mL Q12H (Duplex) IV SCH (04:15)
[2018-12-21 06:13] LABS: Hematocrit 27 % (42-52); Hemoglobin 9.1 g/dL (14.0-18.0); Mean Corpuscular HGB Conc 34 g/dL (31-36); Mean Corpuscular Hemoglobin 30 pg (27-31); Mean Corpuscular Volume 88 fL (80-94); Platelet Count 40 10^3/uL (150-450); Red Blood Count 3.09 10^6 /uL (4.18-5.48); Red Cell Distribution Width 17 % (10-15); White Blood Count 6.5 10^3/uL (3.5-10.8)
[2018-12-21 06:29] LABS: Albumin 2.8 g/dL (3.2-5.2); Albumin/Globulin Ratio 0.8 (1-3); BUN/Creatinine Ratio 20.3 (8-20); Calcium 8.2 mg/dL (8.6-10.3); EGFR African American 137.6 (>60); EGFR Non-African American 113.7 (>60); Globulin 3.3 g/dL (2-4); Magnesium 1.4 mg/dL (1.9-2.7); Potassium 3.1 mmol/L (3.5-5.0); Total Protein 6.1 g/dL (6.4-8.9)
[2018-12-21 08:26] LABS: ABS Lymphocytes 1.6 10^3/ul (1.0-4.8); ABS Monocytes 1.3 10^3/ul (0-0.8); ABS Neutrophils 3.6 10^3/ul (1.5-7.7); Eosinophil % 0.2 %; Lymphocyte % 24.6 %; Nucleated Red Blood Cells % 0.1
[2018-12-21] MEDS ORDERED: Vancomycin Trough Check NOTE FOLLOW UP ONE (09:00)
[2018-12-21] MEDS: oxyCODONE TAB* 5 MG TAB PO PRN (09:25)
[2018-12-21] MEDS: Docusate CAP* 100 MG PO SCH ×2 (09:25→21:55)
[2018-12-21] MEDS: Metoprolol Succinate XL TAB* 25 MG PO SCH (09:25)
--- NOTE | 2018-12-21 09:33 | PN ---
Progress Note - Progress Note Date of Service: 12/21/18 SOAP: Subjective: []Feels ok today. No complaints to this screen writer. Curious how long he'll need to be inpt. Medications: Acetaminophen (Tylenol Tab*) 650 mg PO Q6H PRN PRN Reason: FEVER Last Admin: 12/20/18 23:18 Dose: 650 mg Docusate Sodium (Colace Cap*) 100 mg PO BID [facility] Last Admin: 12/21/18 09:25 Dose: 100 mg Filgrastim-Sndz (Zarxio*) 480 mcg SUBCUT DAILY [facility] Last Admin: 12/20/18 11:57 Dose: 480 mcg Sodium Chloride (Ns 0.9% 1000 Ml) 1,000 mls @ 100 mls/hr IV PER RATE [facility] Last Admin: 12/20/18 16:35 Dose: 100 mls/hr Cefepime HCl (Maxipime 2 Gm In Dextrose Duplex (*)) 2 gm in 50 mls @ 100 mls/ hr IV Q12H [facility] Last Admin: 12/21/18 04:15 Dose: 100 mls/hr Vancomycin HCl 1,250 mg/ (Sodium Chloride) 250 mls @ 166.667 mls/hr IVPB Q12H [facility] Last Admin: 12/20/18 22:55 Dose: 166.667 mls/hr Lorazepam (Ativan Tab(*)) 1 mg PO BEDTIME [facility] Last Admin: 12/20/18 22:08 Dose: Not Given Metoprolol Succinate (Toprol Xl Tab*) 25 mg PO DAILY [facility] Last Admin: 12/21/18 09:25 Dose: 25 mg Morphine Sulfate (Morphine 4 Mg/Ml Vial (1 Ml)) 4 mg IV Q4H PRN PRN Reason: PAIN Last Admin: 12/20/18 12:09 Dose: 4 mg Oxycodone HCl (Roxycodone Tab*) 5 mg PO Q4H PRN PRN Reason: PAIN Last Admin: 12/21/18 09:25 Dose: 5 mg Pharmacy Consult (Vancomycin Per Pharmacy*) 1 note FOLLOW UP . PRN PRN Reason: PER PROTOCOL Senna (Senokot Tab*) 1 tab PO BEDTIME PRN PRN Reason: CONSTIPATION Last Admin: 12/20/18 16:33 Dose: 1 tab Objective: [] Vital Signs Temp Pulse Resp BP Pulse Ox 98.3 F 57 18 147/82 100 12/21/18 03:36 12/21/18 03:36 12/21/18 09:25 12/21/18 03:36 12/21/18 03:36 A&Ox3, EOMI, neuro grossly non-focal HRR, S1S2 LS with left base dim. Dressing with purulent drainage Laboratory Results - last 24 hr 12/20/18 12/20/18 12/21/18 05:39 05:39 05:50 WBC 2.2 L 6.5 RBC 2.53 L 3.09 L Hgb 7.4 L 9.1 L Hct 23 L 27 L MCV 89 88 MCH 29 30 MCHC 33 34 RDW 17 H 17 H Plt Count 41 L 40 L MPV 7.9 8.0 Neut % (Auto) 41.1 54.6 Lymph % (Auto) 30.8 24.6 [place] % (Auto) 27.6 20.2 Eos % (Auto) 0.1 0.2 Baso % (Auto) 0.4 0.4 Absolute Neuts (auto) 0.9 L 3.6 Absolute Lymphs (auto) 0.7 L 1.6 Absolute Monos (auto) 0.6 1.3 H Absolute Eos (auto) 0.0 0.0 Absolute Basos (auto) 0.0 0.0 Absolute Nucleated RBC 0.0 0.0 Immature Gran % 2.0 Neutrophils % 41.0 52.0 Band Neutrophils % 2.0 Lymphocytes % 38.0 25.0 Monocytes % 21.0 21.0 Nucleated RBC % 0.2 0.1 Normal RBC Morphology Normal Not Reportable Anisocytosis 1+ Sodium Potassium Chloride Carbon Dioxide Anion Gap BUN Creatinine Est GFR ( Amer) Est GFR (Non-Af Amer) BUN/Creatinine Ratio Glucose Calcium Magnesium Total Bilirubin AST ALT Alkaline Phosphatase Total Protein Albumin Globulin Albumin/Globulin Ratio Blood Type A Positive Antibody Screen Positive Antibody Identification Anti-M Direct Antiglob Test Negative Crossmatch See Detail 12/21/18 05:50 WBC RBC Hgb Hct MCV MCH MCHC RDW Plt Count MPV Neut % (Auto) Lymph % (Auto) [place] % (Auto) Eos % (Auto) Baso % (Auto) Absolute Neuts (auto) Absolute Lymphs (auto) Absolute Monos (auto) Absolute Eos (auto) Absolute Basos (auto) Absolute Nucleated RBC Immature Gran % Neutrophils % Band Neutrophils % Lymphocytes % Monocytes % Nucleated RBC % Normal RBC Morphology Anisocytosis Sodium 137 Potassium 3.1 L Chloride 106 Carbon Dioxide 22 Anion Gap 9 BUN 14 Creatinine 0.69 Est GFR ( Amer) 137.6 Est GFR (Non-Af Amer) 113.7 BUN/Creatinine Ratio 20.3 H Glucose 130 H Calcium 8.2 L Magnesium 1.4 L Total Bilirubin 1.00 AST 61 H ALT 32 Alkaline Phosphatase 51 Total Protein 6.1 L Albumin 2.8 L Globulin 3.3 Albumin/Globulin Ratio 0.8 L Blood Type Antibody Screen Antibody Identification Direct Antiglob Test Crossmatch Microbiology 12/19/18 17:50 Skin and Soft Tissue MRSA/MSSA (PCR - Final Wound Mrsa Positive S.aureus Positive Gram Stain - Final Wound Culture - Preliminary MRSA 12/18/18 13:56 Aerobic Blood Culture - Preliminary Blood Venous No Growth Day 2 Anaerobic Blood Culture - Preliminary No Growth Day 2 12/18/18 13:56 Aerobic Blood Culture - Preliminary Blood Venous No Growth Day 2 Anaerobic Blood Culture - Preliminary No Growth Day 2 12/18/18 18:00 Gram Stain - Final Pleural Fluid Body Fluid Culture - Preliminary MRSA Skin and Soft Tissue MRSA/MSSA (PCR - Final Mrsa Positive S.aureus Positive 12/18/18 18:00 Skin and Soft Tissue MRSA/MSSA (PCR - Final Chest Mrsa Positive S.aureus Positive Gram Stain - Final Wound Culture - Final MRSA Assessment: []68 yo male with metastatic lung cancer currently C4D11 of carboplatin/ pemetrexed/pembrolizumab who presented with weakness and fever found to have MRSA empyema secondary to pleurX catheter with chest wall abscess now s/p removal and I&D. Plan: []1. Sepsis with MRSA infected pleurX catheter, empyema, and chest wall abscess - clinically improving, blood cultures negative - s/p I&D of chest wall abscess and pulling of infected pleurex catheter - blood cultures negative - ID consultation re: recommendations for management of empyema, may benefit from drain placement with IR - cont Vanco for MRSA, Cefepime for neutropenia (although this has improved s/p 1 dose of neupogen and may be d/c'd after today, D3) - CT chest per ID today 2. Metastatic lung CA: due for restaging scans which he can get as an outpatient - C4D11, counts should recover over next week - Neuopogen 1st dose yesterday (given in setting of severe infection), will cont. for now - cont vanco/cefepime for above infection - chemo will be held until infection has resolved 3. Electrolyte abnormalities: IV replacement 4. DVT prophylaxis: hold Lovenox as plts <50K, resume when plts >50K FULL CODE Dispo: inpt. for IV abx. with CT to determine further drainage need vs. home with abx.
[2018-12-21] MEDS: FILGRASTIM-SNDZ* 480 MCG/0.8 ML SYRINGE SUBCUT SCH (10:39)
[2018-12-21] MEDS: Vancomycin(*) 1,250 MG in NS 0.9% 250 ML* 250 ML IVPB SCH (10:40)
[2018-12-21] MEDS ORDERED: Magnesium Sulf 4 GM/100 ML IV* 4,000 MG/100 ML BAG IVPB ONE (10:48)
[2018-12-21] MEDS: KCL 20 MEQ/100 ML IVPREMIX* 20 MEQ/100 ML BAG IV SCH ×2 (11:29→15:49)
[2018-12-21] MEDS: Morphine 4 MG/ML VIAL (1 ml) 4 MG/ML VIAL IV PRN ×2 (11:46→17:53)
[2018-12-21] MEDS ORDERED: Iohexol 300* (CONTRAST) 10 ML SDV IV ONE (12:19)
--- NOTE | 2018-12-21 14:04 | CONS ---
CONSULTATION REPORT: DATE OF CONSULT: 12/21/18 REQUESTING PHYSICIAN: Raquel Mccray NP. CONSULTING SERVICE: Infectious disease. REASON FOR CONSULTATION: MRSA catheter infection. IMPRESSION: 1. Left PleurX catheter for malignant pleural effusion, now with MRSA soft tissue infection and catheter tract infection in the setting of ongoing left pleural effusion, question underlying empyema. 2. Zof-kcvld-ozcf lung cancer, on chemotherapy. 3. Hypertension. 4. History of hip arthroplasty, which is asymptomatic. RECOMMENDATIONS: We will continue vancomycin, stop cefepime, and CT of the chest to evaluate the pleural effusions, see if further drainage is needed. HISTORY OF PRESENT ILLNESS: This is a 68-year-old male with metastatic lung cancer, on chemotherapy and previously had a left chest PleurX catheter placed for drainage of the pleural fluid, and then developed fever, chills, sweats, swelling, redness, and purulent drainage at the catheter site. He came to the hospital on 12/18/18 with white count of 2000. He was afebrile at 39.4. He was taken by Dr. Noguera for drainage and debridement on 12/19/18. His white count is 6 today. Last fever was just last evening at 38.1. Today, he is feeling a little bit better. Energy is okay. Some left chest pain, no pain elsewhere. PAST MEDICAL HISTORY: 1. Metastatic nix-bzhtb-psgx lung cancer. 2. Left chest PleurX catheter. 3. Obstructive sleep apnea. 4. Hypertension. 5. History of subdural hematoma, treated with tara hole. 6. Status post hip arthroplasty. MEDICATIONS: Cefepime 2 g twice a day, Tylenol, docusate, magnesium, metoprolol , morphine as needed, oxycodone as needed, vancomycin 1 g every 8 hours. ALLERGIES: IBUPROFEN. FAMILY HISTORY: No TB or recurrent infections. SOCIAL HISTORY: He lives in [place], nonsmoker, no travel. REVIEW OF SYSTEMS: A 12-point review is all negative, except as noted above in the history of present illness. PHYSICAL EXAM: Vital Signs: Temperature is 37, heart rate is 60, respiratory rate 16, blood pressure 150/87, oxygen saturation is 100% on room air. In general, he is awake, not in distress. Neurologic: He is oriented x3, follows commands. HEENT: There is no conjunctival hemorrhage. Oropharynx without lesions. Neck is supple without mass. Heart is regular rate and rhythm without murmurs, rubs, or gallops. Lungs: Decreased breath sounds at the left base. In the left chest, there is an incision with some seropurulent drainage. Abdomen: Soft, mildly distended, nontender. Bowel sounds are present. Skin : There is no rash. There is no hemorrhage. Musculoskeletal: There is no spine tenderness to palpation. DIAGNOSTIC STUDIES/LAB DATA: Laboratory Data: White blood cell count is 6, hemoglobin is 9, platelets 40. Creatinine is 0.7. Please see impression and recommendations outlined above. I have discussed with Raquel Mccray NP. Thanks for asking me to see Mr. Ennis in consultation. [id number]/[facility] #: [id number] ALDA
[2018-12-21 16:03] LABS: EGFR African American 137.6 (>60); EGFR Non-African American 113.7 (>60)
[2018-12-21] MEDS: Vancomycin(*) 1,000 MG in NS 0.9% 250 ML* 250 ML IVPB SCH (19:10)
[2018-12-21] MEDS: Acetaminophen TAB* 325 MG PO PRN (20:58)
[2018-12-21] MEDS: LORazepam TAB(*) 1 MG PO SCH (22:04)
[2018-12-21] MEDS: NS 0.9% 1000 ML** 1,000 ML IV SCH (22:05)
[2018-12-22] MEDS: Vancomycin(*) 1,000 MG in NS 0.9% 250 ML* 250 ML IVPB SCH ×3 (04:02→21:15)
[2018-12-22] MEDS: Morphine 4 MG/ML VIAL (1 ml) 4 MG/ML VIAL IV PRN ×3 (04:55→13:30)
[2018-12-22] MEDS: NS 0.9% 1000 ML** 1,000 ML IV SCH (05:03)
[2018-12-22 05:40] LABS: Albumin 2.7 g/dL (3.2-5.2); Albumin/Globulin Ratio 0.8 (1-3); BUN/Creatinine Ratio 14.3 (8-20); EGFR African American 135.3 (>60); EGFR Non-African American 111.8 (>60); Globulin 3.2 g/dL (2-4); Potassium 3.4 mmol/L (3.5-5.0); Total Protein 5.9 g/dL (6.4-8.9)
[2018-12-22 05:58] LABS: Hematocrit 26 % (42-52); Hemoglobin 8.7 g/dL (14.0-18.0); Mean Corpuscular HGB Conc 34 g/dL (31-36); Mean Corpuscular Hemoglobin 30 pg (27-31); Mean Corpuscular Volume 88 fL (80-94); Mean Platelet Volume 8.9 fL (7.4-10.4); Platelet Count 33 10^3/uL (150-450); Red Cell Distribution Width 18 % (10-15); White Blood Count 9.5 10^3/uL (3.5-10.8)
[2018-12-22 06:48] LABS: ABS Lymphocytes 2.5 10^3/ul (1.0-4.8); Eosinophil % 0.2 %; Lymphocyte % 26.1 %; Nucleated Red Blood Cells % 0.2
[2018-12-22] MEDS: Metoprolol Succinate XL TAB* 25 MG PO SCH (09:09)
[2018-12-22] MEDS: Docusate CAP* 100 MG PO SCH ×2 (09:09→21:35)
[2018-12-22] MEDS: FILGRASTIM-SNDZ* 480 MCG/0.8 ML SYRINGE SUBCUT SCH (09:39)
--- NOTE | 2018-12-22 11:09 | PN ---
Progress Note - Progress Note Date of Service: 12/22/18 Note: Surgery Progress: S: Some pain Left chest. Denies SOB. O: Tmax 100.4 Vital Signs - 8 hr 12/22/18 12/22/18 12/22/18 04:11 04:55 06:17 Temperature 99.7 F Pulse Rate 74 Respiratory 18 20 20 Rate Blood Pressure 163/90 (mmHg) O2 Sat by Pulse 100 Oximetry 12/22/18 09:30 Temperature Pulse Rate Respiratory 16 Rate Blood Pressure (mmHg) O2 Sat by Pulse Oximetry Intake and Output Last 24 Hours 12/20/18 12/21/18 12/22/18 12/23/18 06:59 06:59 06:59 06:59 Intake Total 3376 1890 4090 Output Total 1050 975 Balance 3376 840 3115 Intake: IV Fluids 1532 30 980 NS (0.9%) 1532 30 980 IVPB 644 300 950 ABX - VANCOMYCIN 594 250 750 KCl 200 cefepime 50 50 Oral 1200 1560 2160 Output: Urine 1050 975 Other: Estimated Void Medium Medium Small Date of Last Bowel [id number] Movement # Bowel Movements 0 0 0 # Voids 3 4 1 Left chest wall wounds: dsgs w/ small to mod cloudy blank drainage. No erythema or sig tenderness to palp. No add'l expressible drainage. Exit site michael drain d/c'd. Redressed w/ DSD. CT chest 12/21 noted. A: s/p removal Pleurex catheter and drainage of exit site abscess, improving P: cont current wound care; remaining michael drain to be removed in next day or two.
[2018-12-22] MEDS ORDERED: Vancomycin Trough Check NOTE FOLLOW UP ONE (11:30)
[2018-12-22] MEDS: Potassium Chlor TAB* 20 MEQ TAB.ER PO SCH ×2 (12:55→21:35)
[2018-12-22] MEDS: Acetaminophen TAB* 325 MG PO PRN (16:42)
[2018-12-22] MEDS: LORazepam TAB(*) 1 MG PO SCH (21:35)
[2018-12-23] MEDS: Morphine 4 MG/ML VIAL (1 ml) 4 MG/ML VIAL IV PRN ×2 (02:36→08:29)
[2018-12-23] MEDS: Acetaminophen TAB* 325 MG PO PRN ×2 (03:09→18:55)
[2018-12-23] MEDS: Vancomycin(*) 1,000 MG in NS 0.9% 250 ML* 250 ML IVPB SCH ×3 (03:10→21:03)
[2018-12-23] MEDS: oxyCODONE TAB* 5 MG TAB PO PRN ×3 (04:57→14:52)
[2018-12-23] MEDS: Docusate CAP* 100 MG PO SCH ×2 (08:30→21:02)
[2018-12-23] MEDS: Potassium Chlor TAB* 20 MEQ TAB.ER PO SCH ×2 (08:30→21:02)
[2018-12-23] MEDS: Metoprolol Succinate XL TAB* 25 MG PO SCH (08:30)
--- NOTE | 2018-12-23 09:53 | PN ---
Progress Note - Progress Note Date of Service: 12/23/18 SOAP: Subjective: []Feeling OK, but still tired. Still spiking temps. Medications: Acetaminophen (Tylenol Tab*) 650 mg PO Q6H PRN PRN Reason: FEVER Last Admin: 12/23/18 03:09 Dose: 650 mg Docusate Sodium (Colace Cap*) 100 mg PO BID [facility] Last Admin: 12/23/18 08:30 Dose: 100 mg Heparin Sodium (Porcine) (Heparin Flush Port (Ivad)) 5 ml FLUSH DAILY [facility]; Protocol Last Admin: 12/23/18 08:30 Dose: 5 ml Vancomycin HCl 1,000 mg/ (Sodium Chloride) 250 mls @ 166.667 mls/hr IVPB Q8H [facility] Last Admin: 12/23/18 03:10 Dose: 166.667 mls/hr Lorazepam (Ativan Tab(*)) 1 mg PO BEDTIME [facility] Last Admin: 12/22/18 21:35 Dose: 1 mg Metoprolol Succinate (Toprol Xl Tab*) 25 mg PO DAILY [facility] Last Admin: 12/23/18 08:30 Dose: 25 mg Morphine Sulfate (Morphine 4 Mg/Ml Vial (1 Ml)) 4 mg IV Q4H PRN PRN Reason: PAIN Last Admin: 12/23/18 08:29 Dose: 4 mg Oxycodone HCl (Roxycodone Tab*) 5 mg PO Q4H PRN PRN Reason: PAIN Last Admin: 12/23/18 09:32 Dose: 5 mg Pharmacy Consult (Vancomycin Per Pharmacy*) 1 note FOLLOW UP . PRN PRN Reason: PER PROTOCOL Pharmacy Profile Note (Vancomycin Trough Check) 1 note FOLLOW UP ONCE ONE Stop: 12/24/18 11:01 Potassium Chloride (Klor Con Er Tab*) 20 meq PO BID [facility] Last Admin: 12/23/18 08:30 Dose: 20 meq Senna (Senokot Tab*) 1 tab PO BEDTIME PRN PRN Reason: CONSTIPATION Last Admin: 12/20/18 16:33 Dose: 1 tab Objective: [] Vital Signs Temp Pulse Resp BP Pulse Ox 99.8 F 86 14 172/92 100 12/23/18 04:05 12/23/18 04:37 12/23/18 09:34 12/23/18 04:37 12/23/18 04:37 A&Ox3, EOMI, neuro grossly non-focal HRR, S1S2 LS dim. left base with exp. wheeze, right clear Left chest wall dressing with sm. amt. of exudate, wound not assessed, drain in place per surgery Assessment: []68 yo male with metastatic lung cancer currently C4D13 of carboplatin/ pemetrexed/pembrolizumab who presented with weakness and fever found to have MRSA empyema secondary to pleurX catheter with chest wall abscess now s/p removal and I&D. Plan: []1. Sepsis with MRSA infected pleurX catheter, empyema, and chest wall abscess - continues to spike temps - blood cultures remain negative - s/p I&D of chest wall abscess and pulling of infected pleurex catheter, drain in place per surgery with clinical improvement @ chest wall site - ID consultation re: recommendations for management of empyema suggest chest tube - cont Vanco for MRSA - IR to drain pleural fluid today and send culture 2. Metastatic lung CA: due for restaging scans which he can get as an outpatient - C4D13, counts should recover over next week - s/p 2 doses of neupogen with excellent neutrophil response and likely explains leukocytosis - chemo will be held until infection has resolved - daily labs 3. DVT prophylaxis: hold Lovenox as plts <50K, resume when plts >50K FULL CODE Dispo: inpt. for IV abx. and recommendation by ID for chest tube d/t cont'd effusion on CT
--- NOTE | 2018-12-23 10:51 | PN ---
Progress Note - Progress Note Date of Service: 12/23/18 SOAP: Subjective: CC: Fever HPI: Mr. Ennis is a 68 yo male with PMH significant for metastatic lung cancer s/p PleurX catheter placement, AMEENA, HTN, SDH s/p tara hole; who presented to the hospital with complaints of fever, chills, redness/purulent drainage from PleurX catheter site. Denies neck or back pain, nausea, vomiting, diarrhea, or urinary symptoms. Reports continued fever and chills. Has an occasional non productive cough. Reports constipation. Objective: Vital Signs 12/23/18 12/23/18 12/23/18 04:37 04:57 08:00 Temperature 97.3 F Pulse Rate 86 72 Respiratory 24 24 19 Rate Blood Pressure 172/92 155/91 (mmHg) O2 Sat by Pulse 100 100 Oximetry Physical Exam: General: NAD, laying in bed Neurological: Alert and Oriented x4 HEENT: No thrush, moist MM Cardiovascular: Heart rate regular Respiratory: Lung sounds clear bilateral Abdominal: Bowel sounds present; ABD soft, non tender and non distended MSK: No tenderness with palpation of the neck, spine or back Skin: No rash seen Laboratory Last Values WBC 9.5 10^3/uL (3.5-10.8) 12/22/18 05:05 RBC 2.90 10^6 /uL (4.18-5.48) L 12/22/18 05:05 Hgb 8.7 g/dL (14.0-18.0) L 12/22/18 05:05 Hct 26 % (42-52) L 12/22/18 05:05 MCV 88 fL (80-94) 12/22/18 05:05 MCH 30 pg (27-31) 12/22/18 05:05 MCHC 34 g/dL (31-36) 12/22/18 05:05 RDW 18 % (10-15) H 12/22/18 05:05 Plt Count 33 10^3/uL (150-450) L 12/22/18 05:05 MPV 8.9 fL (7.4-10.4) 12/22/18 05:05 Neut % (Auto) 52.3 % 12/22/18 05:05 Lymph % (Auto) 26.1 % 12/22/18 05:05 [place] % (Auto) 21.0 % 12/22/18 05:05 Eos % (Auto) 0.2 % 12/22/18 05:05 Baso % (Auto) 0.4 % 12/22/18 05:05 Absolute Neuts (auto) 5.0 10^3/ul (1.5-7.7) 12/22/18 05:05 Absolute Lymphs (auto) 2.5 10^3/ul (1.0-4.8) 12/22/18 05:05 Absolute Monos (auto) 2.0 10^3/ul (0-0.8) H 12/22/18 05:05 Absolute Eos (auto) 0.0 10^3/ul (0-0.6) 12/22/18 05:05 Absolute Basos (auto) 0.0 10^3/ul (0-0.2) 12/22/18 05:05 Absolute Nucleated RBC 0.0 10^3/ul 12/22/18 05:05 Immature Gran % 2.0 % (0-9) 12/21/18 05:50 Neutrophils % 52.0 % 12/21/18 05:50 Band Neutrophils % 2.0 % (0-8) 12/21/18 05:50 Lymphocytes % 25.0 % 12/21/18 05:50 Monocytes % 21.0 % 12/21/18 05:50 Basophils % 1.0 % 12/19/18 05:40 Nucleated RBC % 0.2 12/22/18 05:05 Dohle Bodies Present 12/18/18 13:56 Normal RBC Morphology Not Reportable 12/21/18 05:50 Hypochromasia 1+ 12/19/18 05:40 Anisocytosis 1+ 12/21/18 05:50 Hem Pathologist Commnt 12/22/18 05:05 INR (Anticoag Therapy) 1.24 (0.82-1.09) H 12/18/18 13:56 APTT 31.9 seconds (26.0-38.0) 12/18/18 13:56 Sodium 137 mmol/L (135-145) 12/22/18 05:05 Potassium 3.4 mmol/L (3.5-5.0) L 12/22/18 05:05 Chloride 106 mmol/L (101-111) 12/22/18 05:05 Carbon Dioxide 24 mmol/L (22-32) 12/22/18 05:05 Anion Gap 7 mmol/L (2-11) 12/22/18 05:05 BUN 10 mg/dL (6-24) 12/22/18 05:05 Creatinine 0.70 mg/dL (0.67-1.17) 12/22/18 05:05 Est GFR ( Amer) 135.3 (>60) 12/22/18 05:05 Est GFR (Non-Af Amer) 111.8 (>60) 12/22/18 05:05 BUN/Creatinine Ratio 14.3 (8-20) 12/22/18 05:05 Glucose 108 mg/dL (70-100) H 12/22/18 05:05 Lactic Acid 2.0 mmol/L (0.5-2.0) 12/22/18 01:35 Calcium 8.0 mg/dL (8.6-10.3) L 12/22/18 05:05 Magnesium 1.4 mg/dL (1.9-2.7) L 12/21/18 05:50 Total Bilirubin 1.00 mg/dL (0.2-1.0) 12/22/18 05:05 AST 54 U/L (13-39) H 12/22/18 05:05 ALT 32 U/L (7-52) 12/22/18 05:05 Alkaline Phosphatase 58 U/L (34-104) 12/22/18 05:05 Troponin I 0.04 ng/mL (<0.04) H* 12/18/18 17:41 C-Reactive Protein 269.15 mg/L (<8.01) H 12/18/18 13:56 B-Natriuretic Peptide 71 pg/mL (<=100) 12/18/18 13:56 Total Protein 5.9 g/dL (6.4-8.9) L 12/22/18 05:05 Albumin 2.7 g/dL (3.2-5.2) L 12/22/18 05:05 Globulin 3.2 g/dL (2-4) 12/22/18 05:05 Albumin/Globulin Ratio 0.8 (1-3) L 12/22/18 05:05 Urine Color [place]y 12/18/18 15:42 Urine Appearance Cloudy 12/18/18 15:42 Urine pH 5.0 (5-9) 12/18/18 15:42 Ur Specific [place] 1.016 (1.010-1.030) 12/18/18 15:42 Urine Protein Negative (Negative) 12/18/18 15:42 Urine Ketones Negative (Negative) 12/18/18 15:42 Urine Blood Negative (Negative) 12/18/18 15:42 Urine Nitrate Negative (Negative) 12/18/18 15:42 Urine Bilirubin Negative (Negative) 12/18/18 15:42 Urine Urobilinogen Positive (Negative) A 12/18/18 15:42 Ur Leukocyte Esterase Negative (Negative) 12/18/18 15:42 Urine Glucose Negative (Negative) 12/18/18 15:42 Vancomycin Trough 13.8 mcg/mL 12/22/18 11:35 Random Vancomycin 9.0 mcg/mL 12/19/18 05:40 Blood Type A Positive 12/20/18 05:39 Antibody Screen Positive 12/20/18 05:39 Antibody Identification Anti-M 12/20/18 05:39 Direct Antiglob Test Negative 12/20/18 05:39 Crossmatch See Detail 12/20/18 05:39 Microbiology 12/21/18 22:00 Urine Culture - Final Urine No Growth (<1,000 CFU/mL) 12/22/18 00:24 Aerobic Blood Culture - Preliminary Blood Venous No Growth Day 1 Anaerobic Blood Culture - Preliminary No Growth Day 1 12/21/18 20:12 Aerobic Blood Culture - Preliminary Blood Venous No Growth Day 1 Anaerobic Blood Culture - Preliminary No Growth Day 1 12/18/18 13:56 Aerobic Blood Culture - Preliminary Blood Venous No Growth Day 4 Anaerobic Blood Culture - Preliminary No Growth Day 4 12/18/18 13:56 Aerobic Blood Culture - Preliminary Blood Venous No Growth Day 4 Anaerobic Blood Culture - Preliminary No Growth Day 4 12/18/18 18:00 Gram Stain - Final Pleural Fluid Body Fluid Culture - Final MRSA Skin and Soft Tissue MRSA/MSSA (PCR - Final Mrsa Positive S.aureus Positive 12/19/18 17:50 Skin and Soft Tissue MRSA/MSSA (PCR - Final Wound Mrsa Positive S.aureus Positive Gram Stain - Final Wound Culture - Final MRSA 12/18/18 18:00 Skin and Soft Tissue MRSA/MSSA (PCR - Final Chest Mrsa Positive S.aureus Positive Gram Stain - Final Wound Culture - Final MRSA Assessment: 1. MRSA soft tissue infection and PleurX catheter tract infection. S/P removal of the Pleurx catheter. Afebrile at this time, but last fever was overnight and 101.9. No leukocytosis on last labs but labs are pending for this AM. 2. Fevers. Continues to have intermittent fevers. Diff DX: C diff colitis, worsening infection, UTI, drug reaction, or PNA. Denies diarrhea, is reporting constipation. Denies urinary symptoms and urine culture from 12/21/[address] Chest CT from 12/21/18 with moderate sized loculated pleural effusion which is decreased in size, and compressive left lower lobe atelectasis. Suspect secondary to #1. 3. Non small cell lung cancer with left pleural effusion. On chemotherapy. 4. Hx hip arthroplasty. Asymptomatic. Plan: Continue Vancomycin, trough goal 15-20. Recommend discussing with Interventional Radiology regarding placing a drain. He will require a few weeks of ABX.
[2018-12-23 12:02] LABS: Hematocrit 25 % (42-52); Hemoglobin 8.3 g/dL (14.0-18.0); Mean Corpuscular HGB Conc 33 g/dL (31-36); Mean Corpuscular Hemoglobin 29 pg (27-31); Mean Corpuscular Volume 89 fL (80-94); Mean Platelet Volume 8.2 fL (7.4-10.4); Platelet Count 31 10^3/uL (150-450); Red Blood Count 2.85 10^6 /uL (4.18-5.48); Red Cell Distribution Width 18 % (10-15); White Blood Count 24.4 10^3/uL (3.5-10.8)
[2018-12-23 12:29] LABS: Albumin 2.7 g/dL (3.2-5.2); Albumin/Globulin Ratio 0.8 (1-3); BUN/Creatinine Ratio 13.4 (8-20); Calcium 8.3 mg/dL (8.6-10.3); EGFR African American 142.3 (>60); EGFR Non-African American 117.6 (>60); Globulin 3.2 g/dL (2-4); Potassium 3.5 mmol/L (3.5-5.0); Total Bilirubin 0.7 mg/dL (0.2-1.0); Total Protein 5.9 g/dL (6.4-8.9)
[2018-12-23 12:46] LABS: ABS Basophils 0.1 10^3/ul (0-0.2); ABS Lymphocytes 3.5 10^3/ul (1.0-4.8); ABS Monocytes 2.6 10^3/ul (0-0.8); ABS Neutrophils 18.2 10^3/ul (1.5-7.7); ABS Nucleated RBC 0.1 10^3/ul; Eosinophil % 0.2 %; Lymphocyte % 14.6 %; Nucleated Red Blood Cells % 0.4
[2018-12-23] MEDS: Morphine 10 MG/ML VIAL (1 ml) IV PRN ×3 (13:01→20:58)
--- NOTE | 2018-12-23 16:34 | PN ---
Progress Note - Progress Note Date of Service: 12/23/18 Note: Surgery Progress: S: No sig pain Left chest wall site. O: Tmax 101.9 Vital Signs - 8 hr 12/23/18 12/23/18 12/23/18 09:32 09:34 11:00 Temperature 98.0 F Pulse Rate 77 Respiratory 14 14 19 Rate Blood Pressure 142/93 (mmHg) O2 Sat by Pulse 98 Oximetry 12/23/18 12/23/18 12/23/18 11:30 13:01 14:37 Temperature Pulse Rate Respiratory 16 20 18 Rate Blood Pressure (mmHg) O2 Sat by Pulse Oximetry 12/23/18 12/23/18 14:52 16:19 Temperature Pulse Rate Respiratory 18 20 Rate Blood Pressure (mmHg) O2 Sat by Pulse Oximetry Gen: appears comfortable, sitting up eating lunch Left chest wall wounds: anteriorly, small amt of dried bloody drainage; posterior: moderate amount of cloudy yellow drainage on dsg; no erythema or sig tenderness; no add'l expressible drainage. Drsg changed. Will look to remove the remaining [place]aid drain in the next day or two. Related to the repeat CT of the chest, there is some discussion about placing a drainage tube, but for C&S and for therapeutic purposes. This may be done as an IR procedure, i.e., pigtail catheter, vs a formal chest tube. Dr. Noguera is aware.
[2018-12-23] MEDS: LORazepam TAB(*) 1 MG PO SCH (21:02)
[2018-12-24] MEDS: Vancomycin(*) 1,000 MG in NS 0.9% 250 ML* 250 ML IVPB SCH ×2 (04:40→14:16)
--- NOTE | 2018-12-24 07:35 | PN ---
Progress Note - Progress Note Date of Service: 12/24/18 SOAP: Subjective: feels ok this am. still spiking intermittent fevers. WBC yesterday prior to pigtail drain much higher. AM pending. drain placed yesterday 500 cc brownish yellow fluid drained. MRSA positive. no diarrhea Objective: Vital Signs Temp Pulse Resp BP Pulse Ox 98.5 F 69 18 160/82 100 12/24/18 00:10 12/24/18 00:10 12/24/18 04:17 12/24/18 00:10 12/24/18 00:10 Tmax 101.9 sitting up in nad perr eomi op moist port clean dec bs l base pigtail draining brownish yellow fluid trace le edema A+O x 3 Laboratory Results - last 24 hr 12/23/18 12/23/18 10:50 10:50 WBC 24.4 H RBC 2.85 L Hgb 8.3 L Hct 25 L MCV 89 MCH 29 MCHC 33 RDW 18 H Plt Count 31 L MPV 8.2 Neut % (Auto) 74.4 Lymph % (Auto) 14.6 [place] % (Auto) 10.5 Eos % (Auto) 0.2 Baso % (Auto) 0.3 Absolute Neuts (auto) 18.2 H Absolute Lymphs (auto) 3.5 Absolute Monos (auto) 2.6 H Absolute Eos (auto) 0.0 Absolute Basos (auto) 0.1 Absolute Nucleated RBC 0.1 Immature Gran % 15.0 H Neutrophils % 58.0 Band Neutrophils % 3.0 Lymphocytes % 18.0 Reactive Lymphs % 1.0 Monocytes % 7.0 Eosinophils % 1.0 Metamyelocytes % 8.0 H Myelocytes % 4.0 H Nucleated RBC % 0.4 Nucleated RBCs/100 WBC 1.0 H Normal RBC Morphology Normal Hem Pathologist Commnt Sodium 138 Potassium 3.5 Chloride 106 Carbon Dioxide 26 Anion Gap 6 BUN 9 Creatinine 0.67 Est GFR ( Amer) 142.3 Est GFR (Non-Af Amer) 117.6 BUN/Creatinine Ratio 13.4 Glucose 125 H Calcium 8.3 L Total Bilirubin 0.70 AST 63 H ALT 30 Alkaline Phosphatase 145 H Total Protein 5.9 L Albumin 2.7 L Globulin 3.2 Albumin/Globulin Ratio 0.8 L gram stain new fluid MRSA + Acetaminophen (Tylenol Tab*) 650 mg PO Q6H PRN PRN Reason: FEVER Last Admin: 12/23/18 18:55 Dose: 650 mg Docusate Sodium (Colace Cap*) 100 mg PO BID [facility] Last Admin: 12/24/18 07:42 Dose: 100 mg Heparin Sodium (Porcine) (Heparin Flush Port (Ivad)) 5 ml FLUSH DAILY [facility]; Protocol Last Admin: 12/24/18 07:43 Dose: Not Given Vancomycin HCl 1,000 mg/ (Sodium Chloride) 250 mls @ 166.667 mls/hr IVPB Q8H [facility] Last Admin: 12/24/18 04:40 Dose: 166.667 mls/hr Lorazepam (Ativan Tab(*)) 1 mg PO BEDTIME [facility] Last Admin: 12/23/18 21:02 Dose: 1 mg Metoprolol Succinate (Toprol Xl Tab*) 25 mg PO DAILY [facility] Last Admin: 12/24/18 07:42 Dose: 25 mg Morphine Sulfate (Morphine 10 Mg/Ml Vial (1 Ml)) 6 mg IV Q3H PRN PRN Reason: PAIN Last Admin: 12/24/18 07:42 Dose: 6 mg Oxycodone HCl (Roxycodone Tab*) 5 mg PO Q4H PRN PRN Reason: PAIN Last Admin: 12/23/18 14:52 Dose: 5 mg Pharmacy Consult (Vancomycin Per Pharmacy*) 1 note FOLLOW UP . PRN PRN Reason: PER PROTOCOL Pharmacy Profile Note (Vancomycin Trough Check) 1 note FOLLOW UP ONCE ONE Stop: 12/24/18 11:01 Potassium Chloride (Klor Con Er Tab*) 20 meq PO BID [facility] Last Admin: 12/24/18 07:42 Dose: 20 meq Senna (Senokot Tab*) 1 tab PO BEDTIME PRN PRN Reason: CONSTIPATION Last Admin: 12/20/18 16:33 Dose: 1 tab Assessment: 68 yo male with metastatic lung cancer currently C4D13 of carboplatin/pemetrexed /pembrolizumab who presented with weakness and fever found to have MRSA empyema secondary to pleurX catheter with chest wall abscess now s/p removal and I&D, and now pigtail catheter into remaining fluid pocket draining MRSA positive fluid. I have discussed this at length with surgery. Given lack of thoracic surgery at [facility] recommendation for transfer to tertiary care center where thoracic surgery is available. Plan: 1. Sepsis with MRSA infected pleurX catheter, empyema, and chest wall abscess - continues to spike temps despite pigtail drain placement - blood cultures remain negative - ID consultation re: recommendations for management of empyema suggest chest tube - cont Vanco for MRSA - [facility] when accepted and bed available 2. Metastatic lung CA: due for restaging scans which he can get as an outpatient - C4D14, counts should recover over next week - s/p 2 doses of neupogen with excellent neutrophil response and likely explains leukocytosis - chemo will be held until infection has resolved - daily labs 3. DVT prophylaxis: hold Lovenox as plts <50K, resume when plts >50K FULL CODE
[2018-12-24] MEDS: Morphine 10 MG/ML VIAL (1 ml) IV PRN ×2 (07:42→12:57)
[2018-12-24] MEDS: Docusate CAP* 100 MG PO SCH (07:42)
[2018-12-24] MEDS: Potassium Chlor TAB* 20 MEQ TAB.ER PO SCH (07:42)
[2018-12-24] MEDS: Metoprolol Succinate XL TAB* 25 MG PO SCH (07:42)
--- NOTE | 2018-12-24 08:07 | DS ---
- Discharge Summary TRANSFER SUMMARY Admit date: 12/18/2018 transfer date: pending TRANSFER DIAGNOSIS: 1.MRSA empyema 2. metastatic adenocarcinoma of the lung DISCHARGE MEDICATIONS: Acetaminophen (Tylenol Tab*) 650 mg PO Q6H PRN PRN Reason: FEVER Last Admin: 12/23/18 18:55 Dose: 650 mg Docusate Sodium (Colace Cap*) 100 mg PO BID [facility] Last Admin: 12/24/18 07:42 Dose: 100 mg Heparin Sodium (Porcine) (Heparin Flush Port (Ivad)) 5 ml FLUSH DAILY [facility]; Protocol Last Admin: 12/24/18 07:43 Dose: Not Given Vancomycin HCl 1,000 mg/ (Sodium Chloride) 250 mls @ 166.667 mls/hr IVPB Q8H [facility] Last Admin: 12/24/18 04:40 Dose: 166.667 mls/hr Lorazepam (Ativan Tab(*)) 1 mg PO BEDTIME [facility] Last Admin: 12/23/18 21:02 Dose: 1 mg Metoprolol Succinate (Toprol Xl Tab*) 25 mg PO DAILY [facility] Last Admin: 12/24/18 07:42 Dose: 25 mg Morphine Sulfate (Morphine 10 Mg/Ml Vial (1 Ml)) 6 mg IV Q3H PRN PRN Reason: PAIN Last Admin: 12/24/18 07:42 Dose: 6 mg Oxycodone HCl (Roxycodone Tab*) 5 mg PO Q4H PRN PRN Reason: PAIN Last Admin: 12/23/18 14:52 Dose: 5 mg Pharmacy Consult (Vancomycin Per Pharmacy*) 1 note FOLLOW UP . PRN PRN Reason: PER PROTOCOL Pharmacy Profile Note (Vancomycin Trough Check) 1 note FOLLOW UP ONCE ONE Stop: 12/24/18 11:01 Potassium Chloride (Klor Con Er Tab*) 20 meq PO BID [facility] Last Admin: 12/24/18 07:42 Dose: 20 meq Senna (Senokot Tab*) 1 tab PO BEDTIME PRN PRN Reason: CONSTIPATION Last Admin: 12/20/18 16:33 Dose: 1 tab HOSPITAL COURSE: 68 yo M w PMH of relatively newly diagnosed metastatic adenocarcinoma of the lung with a malignant pleural effusion presenting with fever and sepsis related to infected pleurex catheter and MRSA emphyema. Mr. Ennis received cycle 4 of carboplatin/pemetrexed/pembrolizumab on 6/21 and was doing quite well at that time, draining his pleurex catheter at home. There was some concern about how sterile he was maintaining this at home, showing up to the clinic once with it completely undressed. He presented to the hospital on 12/18 with fevers and his pleurex site appeared cellulitc/infected. Fluid from this grew MRSA. He was taken to the OR on 12/19 and his pleurex was removed and the subcutaneous abscess was I+D with michael drain placement. Unfortunately he continued to spike fevers despite vancomycin and so a pigtail catheter was placed into his loculated left pleural effusion yesterday late afternoon. This drained 500 cc of opaque brownish red fluid that is currently MRSA positive. Given concern for empyema and continued fevers general surgery has recommended transfer to a facility where thoracic surgery is available to manage this (no thoracic surgeons on staff at [facility]). It should be noted that he has leukocytosis though did receive two doses of neupogen for chemotherapy induced neutropenia. He is clinically quite stable without complaints. He will be transferred when appropriate transfer facility is identified, he is accepted, and bed is available. He is past his chemotherapy amanda and counts should continue to improve. Laboratory Results - last 24 hr 12/23/18 12/23/18 10:50 10:50 WBC 24.4 H RBC 2.85 L Hgb 8.3 L Hct 25 L MCV 89 MCH 29 MCHC 33 RDW 18 H Plt Count 31 L MPV 8.2 Neut % (Auto) 74.4 Lymph % (Auto) 14.6 [place] % (Auto) 10.5 Eos % (Auto) 0.2 Baso % (Auto) 0.3 Absolute Neuts (auto) 18.2 H Absolute Lymphs (auto) 3.5 Absolute Monos (auto) 2.6 H Absolute Eos (auto) 0.0 Absolute Basos (auto) 0.1 Absolute Nucleated RBC 0.1 Immature Gran % 15.0 H Neutrophils % 58.0 Band Neutrophils % 3.0 Lymphocytes % 18.0 Reactive Lymphs % 1.0 Monocytes % 7.0 Eosinophils % 1.0 Metamyelocytes % 8.0 H Myelocytes % 4.0 H Nucleated RBC % 0.4 Nucleated RBCs/100 WBC 1.0 H Normal RBC Morphology Normal Hem Pathologist Commnt Sodium 138 Potassium 3.5 Chloride 106 Carbon Dioxide 26 Anion Gap 6 BUN 9 Creatinine 0.67 Est GFR ( Amer) 142.3 Est GFR (Non-Af Amer) 117.6 BUN/Creatinine Ratio 13.4 Glucose 125 H Calcium 8.3 L Total Bilirubin 0.70 AST 63 H ALT 30 Alkaline Phosphatase 145 H Total Protein 5.9 L Albumin 2.7 L Globulin 3.2 Albumin/Globulin Ratio 0.8 L
[2018-12-24 08:29] LABS: Hematocrit 25 % (42-52); Hemoglobin 8.3 g/dL (14.0-18.0); Mean Corpuscular HGB Conc 33 g/dL (31-36); Mean Corpuscular Hemoglobin 29 pg (27-31); Mean Corpuscular Volume 88 fL (80-94); Mean Platelet Volume 9.9 fL (7.4-10.4); Platelet Count 45 10^3/uL (150-450); Red Blood Count 2.87 10^6 /uL (4.18-5.48); Red Cell Distribution Width 18 % (10-15); White Blood Count 28.2 10^3/uL (3.5-10.8)
[2018-12-24 08:37] LABS: Albumin 2.7 g/dL (3.2-5.2); Albumin/Globulin Ratio 0.8 (1-3); BUN/Creatinine Ratio 10.7 (8-20); Calcium 8.4 mg/dL (8.6-10.3); EGFR African American 124.9 (>60); EGFR Non-African American 103.3 (>60); Globulin 3.4 g/dL (2-4); Potassium 3.8 mmol/L (3.5-5.0); Total Bilirubin 0.7 mg/dL (0.2-1.0); Total Protein 6.1 g/dL (6.4-8.9)
[2018-12-24 08:55] LABS: ABS Lymphocytes 3.1 10^3/ul (1.0-4.8); ABS Monocytes 3.6 10^3/ul (0-0.8); ABS Neutrophils 21.5 10^3/ul (1.5-7.7); ABS Nucleated RBC 0.1 10^3/ul; Eosinophil % 0.1 %; Nucleated Red Blood Cells % 0.3
[2018-12-24] MEDS ORDERED: Vancomycin Trough Check NOTE FOLLOW UP ONE (11:00)
--- NOTE | 2018-12-24 11:03 | PN ---
Progress Note - Progress Note Date of Service: 12/24/18 Note: Surgery Progress Note S: Patient has no complaints this morning. He had a pigtail catheter placed in the loculated left pleural fluid collection yesterday. He has no complaints of shortness of breath or pain. O: Vital Signs: Temp Pulse Resp BP Pulse Ox 99.1 F 88 18 147/91 100 12/24/18 07:36 12/24/18 07:36 12/24/18 08:42 12/24/18 07:36 12/24/18 07:45 Laboratory Results - last 24 hr 12/23/18 12/23/18 12/24/18 10:50 10:50 07:30 WBC 24.4 H 28.2 H RBC 2.85 L 2.87 L Hgb 8.3 L 8.3 L Hct 25 L 25 L MCV 89 88 MCH 29 29 MCHC 33 33 RDW 18 H 18 H Plt Count 31 L 45 L MPV 8.2 9.9 Neut % (Auto) 74.4 76.2 Lymph % (Auto) 14.6 11.0 [place] % (Auto) 10.5 12.6 Eos % (Auto) 0.2 0.1 Baso % (Auto) 0.3 0.1 Absolute Neuts (auto) 18.2 H 21.5 H Absolute Lymphs (auto) 3.5 3.1 Absolute Monos (auto) 2.6 H 3.6 H Absolute Eos (auto) 0.0 0.0 Absolute Basos (auto) 0.1 0.0 Absolute Nucleated RBC 0.1 0.1 Immature Gran % 15.0 H 28.0 H Neutrophils % 58.0 48.0 Band Neutrophils % 3.0 6.0 Lymphocytes % 18.0 13.0 Reactive Lymphs % 1.0 Monocytes % 7.0 11.0 Eosinophils % 1.0 Metamyelocytes % 8.0 H 11.0 H Myelocytes % 4.0 H 11.0 H Nucleated RBC % 0.4 0.3 Nucleated RBCs/100 WBC 1.0 H Normal RBC Morphology Normal Normal Hem Pathologist Commnt Sodium 138 Potassium 3.5 Chloride 106 Carbon Dioxide 26 Anion Gap 6 BUN 9 Creatinine 0.67 Est GFR ( Amer) 142.3 Est GFR (Non-Af Amer) 117.6 BUN/Creatinine Ratio 13.4 Glucose 125 H Calcium 8.3 L Total Bilirubin 0.70 AST 63 H ALT 30 Alkaline Phosphatase 145 H Total Protein 5.9 L Albumin 2.7 L Globulin 3.2 Albumin/Globulin Ratio 0.8 L 12/24/18 07:30 WBC RBC Hgb Hct MCV MCH MCHC RDW Plt Count MPV Neut % (Auto) Lymph % (Auto) [place] % (Auto) Eos % (Auto) Baso % (Auto) Absolute Neuts (auto) Absolute Lymphs (auto) Absolute Monos (auto) Absolute Eos (auto) Absolute Basos (auto) Absolute Nucleated RBC Immature Gran % Neutrophils % Band Neutrophils % Lymphocytes % Reactive Lymphs % Monocytes % Eosinophils % Metamyelocytes % Myelocytes % Nucleated RBC % Nucleated RBCs/100 WBC Normal RBC Morphology Hem Pathologist Commnt Sodium 140 Potassium 3.8 Chloride 108 Carbon Dioxide 26 Anion Gap 6 BUN 8 Creatinine 0.75 Est GFR ( Amer) 124.9 Est GFR (Non-Af Amer) 103.3 BUN/Creatinine Ratio 10.7 Glucose 102 H Calcium 8.4 L Total Bilirubin 0.70 AST 67 H ALT 33 Alkaline Phosphatase 111 H Total Protein 6.1 L Albumin 2.7 L Globulin 3.4 Albumin/Globulin Ratio 0.8 L Intake & Output 12/23/18 12/24/18 12/24/18 22:59 06:59 14:59 Intake Total 550 250 Output Total 290 100 Balance 260 150 Intake: IV Fluids 250 250 ABX - VANCOMYCIN 250 250 Oral 300 0 Output: Urine 290 100 Other: Estimated Void Small # Bowel Movements 0 # Voids 1 Physical exam: Left chest wall- one plastic michael drain from previous incision and drainage remains, small scant drainge. No surrounding tenderness or fluctuance. IR Pigtail catheter in place with brownish drainage A/P: 68 M with metastatic adenocarcinoma of the lung with malignant pleural effusion who presented with an infected left PleurX catheter and chest wall abscess at the site where the catheter was tunnelled. Dr. Noguera removed the catheter performed an incision and drainage of the chest wall with placement on michael drains on 12/19, however patient continued to have fevers. CT chest was done on 12/21 that showed a loculated pleural effusion with rim enhancement, cultures of the pleural effusion confirmed MRSA. He underwent IR drainage yesterday. - Recommend transfer to facility with thoracic surgeon who can manage patient's empyema, given that there is no thoracic surgery coverage at [facility]. This was discussed between Dr. Noguera and Dr. Aguilar this morning and [facility] accepted the patient for transfer. I discussed this plan with the patient and he understands and agrees.
[2018-12-24 11:46] VITALS: BP 134/78
== END 2018-12-24 13:15 | disposition short-term general hospital (02) | DRG 919 ==
LOC: ED 13:06 → MED 18:15
PROVIDERS: ADMIT Internal Medicine; ATTEND Internal Medicine Hematology & Oncology
PROC: 0W980ZZ Drainage of Chest Wall, Open Approach (ICD-10-PCS; 2018-12-19)
PROC: 0WPB30Z Removal of Drainage Device from Left Pleural Cavity, Percutaneous Approach (ICD-10-PCS; principal; 2018-12-19 13:06)
PROC: 30233N1 Transfusion of Nonautologous Red Blood Cells into Peripheral Vein, Percutaneous Approach (ICD-10-PCS; 2018-12-20)
PROC: 0W9B30Z Drainage of Left Pleural Cavity with Drainage Device, Percutaneous Approach (ICD-10-PCS; 2018-12-23)
DX: T85.79XA Infection and inflammatory reaction due to other internal prosthetic devices, implants and grafts, initial encounter (principal); J86.9 Pyothorax without fistula; A41.02 Sepsis due to Methicillin resistant Staphylococcus aureus; C34.90 Malignant neoplasm of unspecified part of unspecified bronchus or lung; C79.9 Secondary malignant neoplasm of unspecified site; J91.0 Malignant pleural effusion; L02.213 Cutaneous abscess of chest wall; Y82.8 Other medical devices associated with adverse incidents; B95.62 Methicillin resistant Staphylococcus aureus infection as the cause of diseases classified elsewhere; E27.9 Disorder of adrenal gland, unspecified; G47.33 Obstructive sleep apnea (adult) (pediatric); E87.6 Hypokalemia; R50.81 Fever presenting with conditions classified elsewhere; D70.1 Agranulocytosis secondary to cancer chemotherapy; T45.1X5A Adverse effect of antineoplastic and immunosuppressive drugs, initial encounter; Z96.649 Presence of unspecified artificial hip joint; I10 Essential (primary) hypertension; Z87.440 Personal history of urinary (tract) infections; Y92.009 Unspecified place in unspecified non-institutional (private) residence as the place of occurrence of the external cause; Z88.6 Allergy status to analgesic agent; Z87.891 Personal history of nicotine dependence; Z82.49 Family history of ischemic heart disease and other diseases of the circulatory system; Z83.3 Family history of diabetes mellitus; Z82.0 Family history of epilepsy and other diseases of the nervous system
CPT/HCPCS: 36415; 49406; 71045; 71046; 71260; 80048; 80053; 80202; 81003; 82565; 83605; 83735; 83880; 84484; 84520; 85025; 85060; 85610; 85730; 86140; 86850; 86870; 86880; 86900; 86901; 86905; 86922; 87040; 87070; 87077; 87086; 87186; 87205; 87640; 87641; 93005; 99222; 99232; 99233; 99285; A9270-GY; C1894; J0692; J1642; J1650; J2270; J2543; J3370; J3475; J3480; P9040; Q5101; Q9967

== ENCOUNTER 2019-03-13 07:27 | Inpatient (IN) | payer MEDICARE, MEDICAID ==
--- OUTSIDE RECORDS SUMMARY | 2019-03-13 07:33 | XMS REPORT | Summary of Care ---
:1950 Author Organization [facility] Address 1 [facility] [place] [address] Care Team Providers Name Role Phone Prudence Greer MD Primary Care Provider Reason for Visit Reason Comments Surgical Followup P/O LEFT THORACOTOMY 12/29/18 Encounter Details Date Type Department Care Team Description 02/26/2019 Office Visit [facility], S/P thoracotomy Surgery ZURI Weinstein (Primary Dx) [address] [place] [id number] [place] [address] Allergies Active Allergy Reactions Severity Noted Date Comments Ibuprofen Rash 12/24/2018 documented as of this encounter (statuses as of 02/26/2019) Medications Medication Sig Dispensed Refills Start Date End Date Status Magnesium 400 MG Oral Take 400 mg by 0 Active Cap mouth DAILY. foliC acid 1 MG Oral Take 1 mg by mouth 0 Active Tab DAILY. LISINOPRIL-HCTZ 20-25 Take 1 Tab by 0 Active MG Oral Tab mouth DAILY. gabapentin (NEURONTIN) Take 1 Cap by 90 Cap 0 01/01/2019 Active 100 MG Oral Cap mouth THREE TIMES DAILY. guaifenesin (MUCINEX) Take 1 Tab by 28 Tab 0 01/01/2019 Active 600 MG Oral TABLET SR mouth TWICE DAILY. 12 HR prazosin (MINIPRESS) 2 Take 1 Cap by 60 Cap 0 01/01/2019 Active MG Oral Cap mouth THREE TIMES DAILY. doxycycline Take 100 mg by 28 Tab 0 01/15/2019 Active (VIBRAMYCIN) 100 MG mouth TWICE DAILY. Oral Tab metoprolol succinate Take 0.5 Tabs by 30 Tab 0 01/28/2019 Active (TOPROL XL) 25 MG Oral mouth DAILY. TABLET SR 24 HR Oxycodone HCl 10 MG Take 1 Tab by 20 Tab 0 02/05/2019 Active Oral Tab mouth EVERY SIX HOURS NEEDED (severe pain). Max Daily Amount: 40 mg. Ongoing therapy documented as of this encounter (statuses as of 02/26/2019) Active Problems Problem Noted Date History of pheochromocytoma 12/30/2018 S/P thoracotomy 12/30/2018 Overview: Left thoracotomy, decortication for left empyema - Dr. 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 Patient referred to Dr. Mcfarland by PCP in 06/2015. Patient denies headache, episodic flush ing, palpitation, sweating. He says his BP has been well controlled with BP medications. No history of DM, no skin changes. He says he has had unintentional weight loss of 15-20 lbs in 5 months. No abdo agueda pain, flank pain, hematuria. He denies fatigue, weakness, palpitation, chest pain, shortness of breath. His bowel and bladder habits are normal. His appetite is good. Referring Provider: Dr. Jenny Mcfarland Primary Care Provider: Prudence Greer Oncologist: Initial Evaluation: 06/28/2015 CT scan (chest) w/o contrast - [facility] Left upper lobe lung nodule measuring 0.4 cm Right adrenal mass measuring 4.2 cm 08/24/2015 CT scan (abd/pelvis) - Enhancing mass located between right kidney and adrenal gland Measuring 5 x 5 x 4.6 cm. Prominent internal enhancing vascularity. The origin of the mass is difficult to entirely determined Mass abuts right anterior superior renal cortex for length of 2 cm Broad abutment of right adrenal gland. Broad abutment of IVC for length of 3 x 4 cm W/ obliteration of any intervening fat plane. The mass also abuts the undersurface of the liver Thin fat plane may still be present. Laboratory Studies: Ref. Range 06/03/2015 04:55 07/05/2015 08:40 07/31/2015 08:45 08/24/2015 09:33 Sodium Latest Range: 134-145 mmol/L 137 Potassium Latest Range: 3.5-5.1 mmol/L 4.3 Chloride Latest Range: 98-107 mmol/L 101 CO2 Latest Range: 22-30 mmol/L 27 Glucose (Lab) Latest Range: 70-99 mg/dL 137 BUN Latest Range: 7-17 mg/dL 12 Creatinine Latest Range: 0.7-1.2 mg/dL 0.8 Calcium Latest Range: 8.3-10.1 mg/dL 8.5 eGFR Latest Range: See Interpretation Below ml/min/1.73ml Sq > 60 AM Cortisol level (w/ dexamethasone suppression) Latest Range: 4.5-22.7ug/dl 2.6 Total metanephrines Latest Range: <250 pg/ml 1315 (H) Plasma Free Metanephrines Latest Range: <57 pg/ml 46 Normetanephrine Latest Range: <148 pg/ml 1269 (H) Total Catecholamines Latest Range: 242 - 1124 pg/ml 2275 (H) Norepinephrine Latest Range: 217 - 1109 pg/ml 2215 (H) Epinephrine Latest Range: < 95 pg/ml 60 Dopamine Latest Range: < 30 pg/ml 33 (H) Renin Latest Range: 0.25 - 5.82 ng/ml 0.83 Aldosterone Latest Range: ____ ng/ml 2 DHEA Latest Range: 61-1636 ng/dl 72 Estradiol Latest Range: 5-66 pg/ml 15 Estrone Latest Range: <68 pg/ml 50 Surgical Management: Adjuvant Therapy: Follow -up evaluation: 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 Monthly or less 12/24/2018 How many drinks containing alcohol do you have on a 1 or 2 12/24/2018 typical day when you are drinking? How often do you have six or more drinks on one Not asked occasion? Social Isolation Answer Date Recorded In a typical week, how many times do you More than three times a week 2018 talk on the phone with family, friends, or neighbors? How often do you get together with friends More than three times a week 12/24 or relatives? How often do you attend orthodoxy or Never 12/24/2018 mormonism services? Do you belong to any clubs or No 12/24/2018 organizations such as orthodoxy groups, unions, fraternal or athletic groups, or school groups? How often do you attend meetings of the Never 12/24/2018 clubs or organizations you belong to? Are you now , , , 12/24/2018 , never or living with a partner? Physical Activity Answer Date Recorded On average, how many days per week do you engage in moderate to 0 days 2018 strenuous exercise (like walking fast, running, jogging, dancing, swimming, biking, or other activities that cause a light or heavy sweat)? On average, how many minutes do you engage in exercise at this 0 min 2018 level? Stress Answer Date Recorded Do you feel stress - tense, restless, nervous, or anxious, Not at all 2018 or unable to sleep at night because your mind is troubled all the time - these days? Financial Resource Strain Answer Date Recorded How hard is it for you to pay for the very basics like Not very hard 2018 food, housing, medical care, and heating? Intimate Partner Violence Answer Date Recorded Within the last year, have you been afraid of your partner or No 12/24/2018 ex-partner? Within the last year, have you been humiliated or emotionally No 12/24/2018 abused in other ways by your partner or ex-partner? Within the last year, have you been kicked, hit, slapped, or No 12/24/2018 otherwise physically hurt by your partner or ex-partner? Within the last year, have you been raped or forced to have any No 12/24/2018 kind of sexual activity by your partner or ex-partner? Food Insecurity Answer Date Recorded Within the past 12 months, you worried that your food would Never true 2018 run out before you got money to buy more. Within the past 12 months, the food you bought just didn't Never true 2018 last and you didn't have money to get more. Transportation Needs Answer Date Recorded In the past 12 months, has lack of transportation kept you from Yes 2018 medical appointments or from getting medications? In the past 12 months, has lack of transportation kept you from Yes 2018 meetings, work, or getting things needed for daily living? Sex Assigned at Date Recorded Not on file Job Start Date Occupation Industry Not on file Not on file Not on file Travel History Travel Start Travel End No recent travel history available. documented as of this encounter Last Filed Vital Signs Vital Sign Reading Time Taken Comments Blood Pressure 138/84 02/26/2019 11:03 AM EDT Pulse 84 02/26/2019 11:03 AM EDT Temperature 36.9 02/26/2019 11:03 AM EDT C (98.5 F) Respiratory Rate - - Oxygen Saturation 96% 02/26/2019 11:03 AM EDT Inhaled Oxygen Concentration - - Weight 96.6 kg (213 lb) 02/26/2019 11:03 AM EDT Height 190.5 cm (6' 3") 02/26/2019 11:03 AM EDT Body Mass Index 26.62 02/26/2019 11:03 AM EDT documented in this encounter Progress Notes Corinna Kaye NP - 02/26/2019 11:00 AM EDT PATIENT: Dewayne Ennis : 1950 DATE OF SERVICE: 02/26/2019 REFERRING PRACTITIONER: Prudence Greer PRIMARY CARE PROVIDER: Prudence Greer CHIEF COMPLAINT: Chief Complaint Patient presents with Surgical Followup P/O LEFT THORACOTOMY 12/29/18 Subjective HISTORY OF PRESENT ILLNESS: Dewayne Ennis is a 69-y.o. male who is seen for follow up suture removal from previous chest tube placement. Patient reports that he has been doing well since last seen in office. Denies any SOB, Cough, fever/chills, or N/V. Appetite has been good reports gaining weight. Activity level has been improving riding bikes and walking more. He denies chest pain, chest pressure/discomfort, dyspnea, palpitations, irregular heart beats, near-syncope, syncope, fatigue, orthopnea, paroxysmal nocturnal dyspnea, exertional chest pressure/discomfort, claudication, lower extremity edema, tachypnea. Current Outpatient Medications Medication Sig doxycycline (VIBRAMYCIN) 100 MG Oral Tab Take 100 mg by mouth TWICE DAILY. foliC acid 1 MG Oral Tab Take 1 mg by mouth DAILY. gabapentin (NEURONTIN) 100 MG Oral Cap Take 1 Cap by mouth THREE TIMES DAILY. guaifenesin (MUCINEX) 600 MG Oral TABLET SR 12 HR Take 1 Tab by mouth TWICE DAILY. LISINOPRIL-HCTZ 20-25 MG Oral Tab Take 1 Tab by mouth DAILY. Magnesium 400 MG Oral Cap Take 400 mg by mouth DAILY. metoprolol succinate (TOPROL XL) 25 MG Oral TABLET SR 24 HR Take 0.5 Tabs by mouth DAILY. Oxycodone HCl 10 MG Oral Tab Take 1 Tab by mouth EVERY SIX HOURS NEEDED (severe pain). MaxDaily Amount: 40 mg. Ongoing therapy prazosin (MINIPRESS) 2 MG Oral Cap Take 1 Cap by mouth THREE TIMES DAILY. No current facility-administered medications for this visit. Allergies Allergen Reactions Ibuprofen Rash No results displayed because visit has over 200 results. Objective PHYSICAL EXAMINATION: VITALS: BP 138/84 (BP Location: Left arm, Patient Position: Sitting) | Pulse 84 | Temp (!) 95.8 F (35.4 C) (Tympanic) | Ht 6' 3" (1.905 m) | Wt 213 lb (96.6 kg) | SpO2 96% | BMI 26.62 kg/m CHEST: clear to auscultation bilaterally, no rales, no wheezing, or ronchi. CARDIAC: regular rhythm, no murmurs, no gallops, no rubs. EXTREMITIES: no clubbing, cyanosis, or edema. INCISION: healing well, dry and closed, free of signs and symptoms of infection. Plan IMPRESSION AND PLAN: Dewayne Ennis is progressing well. Sutures were removed without complications. Patient is doing well for CT surgery standpoint. Patient was encouraged to continue with proper diet and exercise, continue to follow up with PCP andOncologist. All questions were answered. Follow-up: As needed. Author: Corinna Kaye NP 02/26/2019 12:16 documented in this encounter Plan of Treatment Health Maintenance Due Date Last Done Comments MEDICARE ANNUAL WELLNESS 1950 VISIT DEPRESSION SCREENING 1961 HIV SCREENING 02/13/1964 LIPID DISORDER SCREENING 1967 HEPATITIS C SCREENING 1989 COLONOSCOPY SCREENING 1999 ZOSTER IMMUNIZATION SERIES 1999 (1 of 2) FALL RISK ASSESSMENT 2014 PNEUMOCOCCAL 65+YRS (1 of 2 2014 - PCV13) INFLUENZA VACCINE (#1) 2019 DIABETES SCREENING 01/02/2020 01/01/2019, 12/30/2018, 12/29/2018, Additional history exists AAA SCREENING/SURVEILLANCE Completed 08/24/2015 HPV IMMUNIZATION SERIES Aged Out No longer eligible based on patient's age to complete this topic MENINGOCOCCAL VACCINE IMM Aged Out No longer eligible based on patient's age to complete this topic documented as of this encounter Implants Implanted Type Area Produce Clerk Device Shelf Model / Identifier Expiration Serial / Lot Date Dome Hole Plug Left: JOSEPHINE CARDENAS 03/31/2025 [id number] / Implanted: Qty: 1 on 05/31/2015 by Levi Serrano MD at [facility] / [id number] Polyethylene Neutral Liner Left: JOSEPHINE CARDENAS 10/30/2019 [id number] / Implanted: Qty: 1 on 05/31/2015 by Levi Serrano MD at [facility] [employer] / [id number] Shell With Uni-Hole 60mm Sizemm Left: JOSEPHINE CARDENAS 03/01/2025 [id number] / Implanted: Qty: 1 on 05/31/2015 by Levi Serrano MD at [facility] / [id number] Taperloc Complete Fem Stem - So Sz 14 - [id number] Left: BIOMET 2024 [id number] / Implanted: Qty: 1 on 05/31/2015 by Levi Serrano MD at [facility] / [id number] 36mm Femoral Head Size 3 - [id number] Left: BIOMET 03/01/2025 [id number] / Implanted: Qty: 1 on 05/31/2015 by Levi Serrano MD at [facility] / [id number] documented as of this encounter Results Not on filedocumented in this encounter Visit Diagnoses Diagnosis S/P thoracotomy - Primary Other postprocedural status documented in this encounter Additional Health Concerns Infection Noted Time Resolved Time MRSA- Active 12/24/2018 7:22 PM EDT documented as of this encounter Insurance Payer Benefit Plan / Subscriber ID Effective Dates Phone Address Type Group MEDICARE MEDICARE PART A xxxxxxxxxx 2014-Present Medicare & B MEDICAID [facility] xxxxxxxx 2018-Present Medicaid [place] MEDICAID Guarantor Name Account Type Relation to Date of Phone Billing Patient Address Dewayne Ennis Personal/Family 1950 [address] (Home) [place] [phone] [place], [place] (Work) [id number] documented as of this encounter Advance Directives Type Date Recorded Patient Housecalls Nurse Explanation Advance Directives 01/04/2019 11:59 AM Code Status Date Activated Date Inactivated Comments Full Code 12/24/2018 5:16 PM Does the patient have decision making capacity? Yes Order was discussed with: Patient I discussed all options and patient/surrogate requested and agreed to: Full Code
--- OUTSIDE RECORDS SUMMARY | 2019-03-13 07:33 | XMS REPORT | Summary of Care ---
:1950 Author Organization [facility] Address [address] [place] [address] Care Team Providers Name Role Phone Prudence Greer MD Primary Care Provider Reason for Visit Reason Comments Surgical Followup P/O LT. THORACOTOMY 12/29/18 Encounter Details Date Type Department Care Team Description 02/09/2019 Office Visit [facility], Empyema lung (HCC) (Primary Dx); Surgery MD Timothy S/P thoracotomy; [address] Metastatic non-small cell lung cancer (HCC) [place] [id number] [place] [address] Allergies Active Allergy Reactions Severity Noted Date Comments Ibuprofen Rash 12/24/2018 documented as of this encounter (statuses as of 02/09/2019) Medications Medication Sig Dispensed Refills Start Date [...] as of this encounter (statuses as of 02/09/2019) Active Problems Problem Noted Date History of [...] 06/28/2015 CT scan (chest) w/o contrast - [facility] Left upper lobe lung nodule measuring [...] as of this encounter (statuses as of 02/09/2019) Social History Tobacco Use Types Packs/Day Years [...] or relatives? How often do you attend mormonism or Never 12/24/2018 episcopal services? Do you belong to any clubs or No 12/24/2018 organizations such as mormonism groups, unions, [employer] or athletic groups, or school groups? How [...] Sign Reading Time Taken Comments Blood Pressure 100/62 02/09/2019 12:17 PM EDT Pulse 92 02/09/2019 12:17 PM EDT Temperature 35.8 02/09/2019 12:17 PM EDT C (96.5 F) Respiratory Rate - - Oxygen Saturation 99% 02/09/2019 12:17 PM EDT Inhaled Oxygen Concentration - - Weight 93 kg (205 lb) 02/09/2019 12:17 PM EDT Height 190.5 cm (6' 3") 02/09/2019 12:17 PM EDT Body Mass Index 25.62 02/09/2019 12:17 PM EDT documented in this encounter Progress Notes Timothy Edwards MD - 02/09/2019 11:00 AM EDT PATIENT: Dewayne Ennis : 1950 DATE OF SERVICE: 02/09/2019 Procedure: Left thoracotomy with evacuation of empyema and placement of an empyema tube on 12/29/2018. Patient had an empyema after a malignant pleural effusion became infected, now he is having the chest tube slowly removed. HISTORY OF PRESENT ILLNESS Patient returns for a follow-up after his repeated chest x-ray and completion of the antibiotics. He has complaints of left chest pain which is worse with movements and stretching of the left chest. The chest x-ray shows continued and relatively unchanged chest cavity space. He states he has regular drainage from the chest tube but has not had fevers, chills, or signs of infection. PAST MEDICAL HISTORY Past Medical History: Diagnosis Date Cancer (HCC) Hypertension PAST SURGICAL HISTORY Past Surgical History: Procedure Laterality Date INCISION AND DRAINAGE HEMATOMA SEROMA OTHER HERNIA REPAIR AR REPAIR ING HERNIA,5+Y/O,REDUCIBL Left SOCIAL HISTORY Social History Socioeconomic History Marital status: Spouse name: Not on file Number of children: Not on file Years of education: Not on file Highest education level: Not on file Occupational History Occupation: retired Social Needs Financial resource strain: Not very hard Food insecurity: Worry: Never true Inability: Never true Transportation needs: Medical: Yes Non-medical: Yes Tobacco Use Smoking status: Former Smoker Types: Cigars Smokeless tobacco: Former User Substance and Sexual Activity Alcohol use: Yes Alcohol/week: 2.0 standard drinks Types: 2 Standard drinks or equivalent per week Frequency: Monthly or less Drinks per session: 1 or 2 Drug use: Yes Types: Inhalents Sexual activity: Yes Partners: Female Lifestyle Physical activity: Days per week: 0 days Minutes per session: 0 min Stress: Not at all Relationships Social connections: Talks on phone: More than three times a week Gets together: More than three times a week Attends episcopal service: Never Active member of club or organization: No Attends meetings of clubs or organizations: Never Relationship status: Intimate partner violence: Fear of current or ex partner: No Emotionally abused: No Physically abused: No Forced sexual activity: No Other Topics Concern Not on file Social History Narrative Not on file FAMILY HISTORY Family History Problem Relation Age of Onset Arthritis Father Diabetes Father Hypertension Father Cancer Mother Heart Sister Heart Brother ALLERGIES Ibuprofen MEDICATIONS Outpatient Medications as of 02/09/2019 Medication Sig Dispense Refill doxycycline (VIBRAMYCIN) 100 MG Oral Tab Take 100 mg by mouth TWICE DAILY. 28 Tab 0 foliC acid 1 MG Oral Tab Take 1 mg by mouth DAILY. gabapentin (NEURONTIN) 100 MG Oral Cap Take 1 Cap by mouth THREE TIMES DAILY. 90 Cap 0 guaifenesin (MUCINEX) 600 MG Oral TABLET SR 12 HR Take 1 Tab by mouth TWICE DAILY. 28 Tab 0 LISINOPRIL-HCTZ 20-25 MG Oral Tab Take 1 Tab by mouth DAILY. Magnesium 400 MG Oral Cap Take 400 mg by mouth DAILY. metoprolol succinate (TOPROL XL) 25 MG Oral TABLET SR 24 HR Take 0.5 Tabs by mouth DAILY. 30 Tab 0 Oxycodone HCl 10 MG Oral Tab Take 1 Tab by mouth EVERY SIX HOURS NEEDED (severe pain). MaxDaily Amount: 40 mg. Ongoing therapy 20 Tab 0 prazosin (MINIPRESS) 2 MG Oral Cap Take 1 Cap by mouth THREE TIMES DAILY. 60 Cap 0 No current facility-administered medications on file as of 02/09/2019. REVIEW OF SYSTEMS Constitutional: No fevers, no chills Respiratory: No shortness of breath Cardiovascular: No chest pain Gastrointestinal: No changes PHYSICAL EXAM Vitals: 02/09/19 1217 BP: 100/62 BP Location: Left arm Patient Position: Sitting Pulse: 92 Temp: 96.5 F (35.8 C) TempSrc: Tympanic SpO2: 99% Weight: 205 lb (93 kg) Height: 6' 3" (1.905 m) Constitutional: Alert and oriented x3, not in acute distress Cardiovascular: Vitals within normal limits Chest: No wheezing, no rhonchi, some air movement in the chest tube as would be expected. Skin: Small amount of granulation tissue around the chest tube site, thoracotomy site is clean dry and intact, no redness or evidence of infection ASSESSMENT Patient with a left chest empyema that had been loculated, and now it has been drained in the space is sterilized as much as possible. He has not had a recurrent infection while the antibiotics have been stopped for the past 2 weeks. PLAN I will remove the chest tube and perform a modified bedside Clagett procedure. With the chest tube incision closed, he will keep it covered for least 24 hours and may shower, he will continue to refrain from any soaking in tubs or swimming pools. He will return in 2 weeks to have the sutures removed. Author: Timothy Edwards MD 02/09/2019 13:10 documented in this encounter Plan of Treatment Date Type Specialty Care Team Description 02/23/2019 Office Visit Cardiac Surgery Timothy Edwards MD [address] [place] [address] [phone] Health Maintenance Due Date Last Done Comments [...] of this encounter Implants Implanted Type Area Pump Runner Device Shelf Model / Identifier Expiration Serial / Lot Date Dome Hole Plug Left: JOSEPHINE CARDENAS 03/31/2025 [id number] / Implanted: Qty: 1 on 05/31/2015 by Levi Serrano MD at [facility] [employer] / [id number] Polyethylene Neutral Liner Left: JOSEPHINE CARDENAS 10/30/2019 [id number] / Implanted: Qty: 1 on 05/31/2015 by Levi Serrano MD at [facility] [employer] / [id number] Shell With Uni-Hole 60mm Sizemm Left: JOSEPHINE CARDENAS 03/01/2025 00- [id number] / Implanted: Qty: 1 on 05/31/2015 by Levi Serrano MD at [facility] [employer] / [id number] Taperloc Complete Fem Stem - So Sz 14 - [id number] Left: BIOMET 2024 [id number] / Implanted: Qty: 1 on 05/31/2015 by Levi Serrano MD at [facility] / [id number] 36mm Femoral Head Size 3 - [id number] Left: BIOMET 03/01/2025 [id number] / Implanted: Qty: 1 on 05/31/2015 by Levi Serrano MD at [facility] / [id number] documented as of this encounter Results Not on filedocumented in this encounter Visit Diagnoses Diagnosis Empyema lung (HCC) - Primary Empyema without mention of fistula S/P thoracotomy Other postprocedural status Metastatic non-small cell lung cancer (HCC) documented in this encounter Additional Health Concerns Infection Noted Time Resolved Time MRSA- Active 12/24/2018 7:22 PM EDT documented as of this encounter Insurance Payer Benefit Plan / Subscriber ID Effective Dates Phone Address Type Group MEDICARE MEDICARE PART A xxxxxxxxxx 2014-Present Medicare & B MEDICAID [facility] xxxxxxxx 2018-Present Medicaid [place] MEDICAID Guarantor Name Account Type Relation to Date of Phone Billing Patient Address Dewayne Ennis Personal/Family 1950 [address] (Home) [place] [phone] [place], [place] (Work) [id number] documented as of this encounter Advance Directives Type Date Recorded Patient Director Independent Explanation Advance Directives 01/04/2019 11:59 AM Code Status Date Activated Date Inactivated Comments Full Code 12/24/2018 5:16 PM Does the patient have decision making capacity? Yes Order was discussed with: Patient I discussed all options and patient/surrogate requested and agreed to: Full Code
--- OUTSIDE RECORDS SUMMARY | 2019-03-13 07:34 | XMS REPORT | Summary of Care ---
:1950 Author Organization [facility] Address [address] [facility] [place] [address] Care Team Providers Name Role Phone Prudence Greer MD Primary Care Provider Reason for Visit Reason Comments Follow Up 2 wk f/u L Thoracotomy Encounter Details Date Type Department Care Team Description 01/28/2019 Office Visit [facility]arda Cardiothoracic [facility] Empyema lung (HCC) (Primary Dx); Surgery MD Timothy Metastatic non-small cell lung cancer (HCC) [address] [place] [address] [place] [address] Allergies Active Allergy Reactions Severity Noted Date Comments Ibuprofen Rash 12/24/2018 documented as of this encounter (statuses as of 01/28/2019) Medications Medication Sig Dispensed Refills Start Date End Date Status Magnesium 400 MG Take 400 mg 0 Active Oral Cap by mouth DAILY. foliC acid 1 MG Take 1 mg by 0 Active Oral Tab mouth DAILY. LISINOPRIL-HCTZ Take 1 Tab by 0 Active 20-25 MG Oral Tab mouth DAILY. gabapentin Take 1 Cap by 90 Cap 0 01/01/2019 Active (NEURONTIN) 100 mouth THREE MG Oral Cap TIMES DAILY. guaifenesin Take 1 Tab by 28 Tab 0 01/01/2019 Active (MUCINEX) 600 MG mouth TWICE Oral TABLET SR 12 DAILY. HR OXYcodone 10 MG Take 1 Tab by 28 Tab 0 01/01/2019 Active Oral Tab mouth EVERY FOUR HOURS NEEDED (severe pain). Max Daily Amount: 60 mg. Ongoing therapy prazosin Take 1 Cap by 60 Cap 0 01/01/2019 Active (MINIPRESS) 2 MG mouth THREE Oral Cap TIMES DAILY. doxycycline Take 100 mg 28 Tab 0 01/15/2019 Active (VIBRAMYCIN) 100 by mouth MG Oral Tab TWICE DAILY. metoprolol Take 0.5 Tabs 30 Tab 0 01/28/2019 Active succinate (TOPROL by mouth XL) 25 MG Oral DAILY. TABLET SR 24 HR metoprolol Take 1 Tab by 30 Tab 0 01/02/2019 Discontinued succinate (TOPROL mouth DAILY. 9 (Dose Adjustment) XL) 25 MG Oral TABLET SR 24 HR documented as of this encounter (statuses as of 01/28/2019) Active Problems Problem Noted Date History of [...] 06/28/2015 CT scan (chest) w/o contrast - [facility] Left upper lobe lung nodule measuring [...] as of this encounter (statuses as of 01/28/2019) Social History Tobacco Use Types Packs/Day Years [...] or relatives? How often do you attend alevism or Never 12/24/2018 jain services? Do you belong to any clubs or No 12/24/2018 organizations such as alevism groups, unions, fraternal or athletic groups, or [...] Sign Reading Time Taken Comments Blood Pressure 100/68 01/28/2019 2:36 PM EDT Pulse 81 01/28/2019 2:36 PM EDT Temperature 36.3 01/28/2019 2:36 PM EDT C (97.4 F) Respiratory Rate - - Oxygen Saturation 98% 01/28/2019 2:36 PM EDT Inhaled Oxygen Concentration - - Weight 93 kg (205 lb) 01/28/2019 2:36 PM EDT Height 190.5 cm (6' 3") 01/28/2019 2:36 PM EDT Body Mass Index 25.62 01/28/2019 2:36 PM EDT documented in this encounter Progress Notes Timothy Edwards MD - 01/28/2019 2:00 PM EDT PATIENT: Dewayne Ennis : 1950 DATE OF SERVICE: 01/28/2019 Procedure: Left thoracotomy with evacuation of empyema and placement of an empyema tube on 12/29/2018. Patient had an empyema after a malignant pleural effusion became infected, now he is having the chest tube slowly removed. HISTORY OF PRESENT ILLNESS Patient returns for a follow-up after his last 2 weeks of drainage. He has no complaints of pain orshortness of breath. He states that he did have a fever more than 1 week ago and was given antibiotics which he had taken for 1 week. His blood pressure still remains low at 100/68, but he is asymptomatic. His PCP had them change the timing of the beta-cedrick due to some hypotension after he has been discharged with the prazosin. He feels well overall and does not currently have any fevers or shortness of breath. The chest tube continues to drain and is being cared for by the home nurse and his family. PAST MEDICAL HISTORY Past Medical History: Diagnosis Date Cancer (HCC) Hypertension PAST SURGICAL HISTORY Past Surgical History: Procedure Laterality Date INCISION AND DRAINAGE HEMATOMA SEROMA OTHER HERNIA REPAIR [place] REPAIR ING HERNIA,5+Y/O,REDUCIBL Left SOCIAL HISTORY Social [...] More than three times a week Attends jain service: Never Active member of club or [...] ALLERGIES Ibuprofen MEDICATIONS Outpatient Medications as of 01/28/2019 Medication Sig Dispense Refill doxycycline (VIBRAMYCIN) 100 [...] Cap Take 400 mg by mouth DAILY. OXYcodone 10 MG Oral Tab Take 1 Tab by mouth EVERY FOUR HOURS NEEDED (severe pain). Max Daily Amount: 60 mg. Ongoing therapy 28 Tab 0 prazosin (MINIPRESS) 2 MG Oral Cap Take 1 Cap by mouth THREE TIMES DAILY. 60 Cap 0 No current facility-administered medications on file as of 01/28/2019. REVIEW OF SYSTEMS Constitutional: Had some fevers which have resolved after levofloxacin Respiratory: No shortness of breath, continued chest drain Cardiovascular: No chest pain Gastrointestinal: No changes PHYSICAL EXAM Vitals: 01/28/19 1436 BP: 100/68 BP Location: Left arm Patient Position: Sitting Pulse: 81 Temp: 97.4 F (36.3 C) SpO2: 98% Weight: 205 lb (93 kg) Height: 6' 3" (1.905 m) Constitutional: Alert and oriented x3, not in acute distress Cardiovascular: Vitals within normal limits, blood pressure asymptomatic but low at 100/68 Chest: Clear, no wheezing or rhonchi, no accessory muscle usage Skin: Warm dry and intact, the incisions and skin around the chest tube remain clean and it appears the chest tube has been taking care of well. ASSESSMENT Patient with a known history of stage IV lung cancer and a pleural effusion that had become an empyema. He has been treated with antibiotics and open chest tube drainage with very good recovery thus far. PLAN I appreciate the flexibility of Dr. Alonso Trujillo who was present for this patient's office visit and her input as to the antibiotic therapy of this empyema. I agree with her conclusion that he should stop the antibiotics as he is no longer infected and the abscess is drained. The chest tube was removed another 4 cm, and he will return in 2 weeks for the [place] procedure, where the chest cavity will be filled with antibiotic solution and the chest tube will be removed closing the hole. I advised him to take only half of the beta-cedrick, as the prazosin was started due to the presenceof an active pheochromocytoma. Author: Timothy Edwards MD 01/28/2019 15:28 documented in this encounter Plan of Treatment Date Type Specialty Care Team Description 02/11/2019 Office Visit Cardiac Surgery Timothy Edwards MD [address] [place] [address] Name Type Priority Associated Diagnoses Order Schedule XR CHEST 2 VIEW PA AND Imaging Routine Empyema lung (HCC) Expected: 02/11/2019, LATERAL (STANDARD) Metastatic non-small Expires: 02/28/2019 cell lung cancer (HCC) Health Maintenance Due Date Last Done Comments [...] of this encounter Implants Implanted Type Area Print Shop Chief Clerk Device Shelf Model / Identifier Expiration Serial / Lot Date Dome Hole Plug Left: JOSEPHINE CARDENAS 03/31/2025 [id number] / Implanted: Qty: 1 on 05/31/2015 by Levi Serrano MD at [facility] [employer] / [id number] Polyethylene Neutral Liner Left: JOSEPHINE CARDENAS 10/30/2019 [id number] / Implanted: Qty: 1 on 05/31/2015 by Levi Serrano MD at [facility] [employer] / [id number] Shell With Uni-Hole 60mm Sizemm Left: JOSEPHINE CARDENAS 03/01/2025 00- [id number] / Implanted: Qty: 1 on 05/31/2015 by Levi Serrano MD at [facility] [employer] / [id number] Taperloc Complete Fem Stem - So Sz 14 - [id number] Left: BIOMET 2024 [id number] / Implanted: Qty: 1 on 05/31/2015 by Levi Serrano MD at [facility] Hip / [id number] 36mm Femoral Head Size 3 - [id number] Left: BIOMET 03/01/2025 [id number] / Implanted: Qty: 1 on 05/31/2015 by Levi Serrano MD at [facility] Hip / [id number] documented as of this encounter Results Not on filedocumented in this encounter Visit Diagnoses Diagnosis Empyema lung (HCC) - Primary Empyema without mention of fistula Metastatic non-small cell lung cancer (HCC) documented in this encounter Additional Health Concerns Infection Noted Time Resolved Time MRSA- Active 12/24/2018 7:22 PM EDT documented as of this encounter Insurance Payer Benefit Plan / Subscriber ID Effective Dates Phone Address Type Group MEDICARE MEDICARE PART A xxxxxxxxxx 2014-Present Medicare & B MEDICAID [facility] xxxxxxxx 2018-Present Medicaid [place] MEDICAID Guarantor Name Account Type Relation to Date of Phone Billing Patient Address Dewayne Ennis Personal/Family 1950 [phone] (Home) [place] [phone] [place], [place] (Work) [address] documented as of this encounter Advance Directives Type Date Recorded 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 Yes Order was discussed with: Patient I discussed all options and patient/surrogate requested and agreed to: Full Code
--- OUTSIDE RECORDS SUMMARY | 2019-03-13 07:34 | XMS REPORT | Summary of Care ---
:1950 Author Organization [facility] Address [address] [place] [address] Care Team Providers Name Role Phone Prudence Greer MD Primary Care Provider Reason for Visit Reason Comments Empyema Empyema with MRSA, seen with CT surgery Encounter Details Date Type Department Care Team Description 01/28/2019 Office Visit Sharda Infectious Gupta-Trujillo, Empyema lung (HCC ) (Primary Dx); Disease MD Nikki S/P thoracotomy; [address] MRSA infection (methicillin-resistant Staphylococcus aureus); [place] [address] [place] [address] Metastatic non-small cell lung cancer (HCC) [phone] Allergies Active Allergy Reactions Severity Noted Date [...] TABLET SR mouth TWICE DAILY. 12 HR OXYcodone 10 MG Oral Take 1 Tab by 28 Tab 0 01/01/2019 Active Tab mouth EVERY FOUR HOURS NEEDED (severe pain). Max Daily Amount: 60 mg. Ongoing therapy prazosin (MINIPRESS) 2 Take 1 Cap by 60 Cap 0 01/01/2019 Active MG Oral Cap mouth THREE TIMES DAILY. doxycycline Take 100 mg by 28 Tab 0 01/15/2019 Active (VIBRAMYCIN) 100 MG mouth TWICE DAILY. Oral Tab documented as of this encounter (statuses as [...] 06/28/2015 CT scan (chest) w/o contrast - [facility] Left upper lobe lung nodule measuring 0.4 [...] or relatives? How often do you attend jain or Never 12/24/2018 gnosticism services? Do you belong to any clubs or No 12/24/2018 organizations such as jain groups, unions, [employer] or athletic groups, or school groups? How [...] of this encounter Last Filed Vital Signs Not on filedocumented in this encounter Progress Notes Alonso-Nikki Trujillo MD - 01/28/2019 2:20 PM EDT PATIENT: Dewayne Ennis : 1950 DATE OF SERVICE: 01/28/2019 REFERRING PRACTITIONER: Prudence Greer PRIMARY CARE PROVIDER: Prudence Grere CHIEF COMPLAINT: Chief Complaint Patient presents with Empyema Empyema with MRSA, seen with CT surgery Subjective HISTORY OF PRESENT ILLNESS: Dewayne Ennis is a 68-y.o. male who presents for a follow-up of lung empyema with MRSA. Caregiver present. Patient feels fairly well at this time. Had fevers at home shortly after last visit, saw PCP and had levofloxacin added to regimen, which was done for 7 days and he is just finishing. Has not had any more fevers. Breathing is better. Still has chest tube. Denies nausea, vomiting or diarrhea. Current Outpatient Medications Medication Sig doxycycline (VIBRAMYCIN) [...] HR Take 0.5 Tabs by mouth DAILY. OXYcodone 10 MG Oral Tab Take 1 Tab by mouth EVERY FOUR HOURS NEEDED (severe pain). Max Daily Amount: 60 mg. Ongoing therapy prazosin (MINIPRESS) 2 MG Oral Cap Take 1 Cap by mouth THREE TIMES DAILY. No current facility-administered medications for this visit. Allergies Allergen Reactions Ibuprofen Rash REVIEW OF SYSTEMS: All remaining review of systems was negative. Objective PHYSICAL EXAMINATION: VITALS: There were no vitals taken for this visit. GENERAL: alert, oriented, no acute distress. SKIN: no rash, see below for wound. HEENT: neck without nodes, throat normal without erythema or exudate and no scleral icterus. NECK: no mass, no adenopathy, no thyromegaly, supple. LUNGS: clear to auscultation bilaterally. HEART: regular rhythm, no gallops, no rubs. ABDOMEN: soft, nontender. EXTREMITIES: no edema, redness or tenderness. WOUND: located on Left side of chest- thoracotomy incision closed, chest tube site with no erythema, drainage noted. NEUROLOGICAL: alert, oriented times three, affect appropriate, no involuntary movements. IMPRESSION: ICD-9-CM ICD-10-CM 1. Empyema lung (HCC) 510.9 J86.9 2. S/P thoracotomy V45.89 Z98.890 3. MRSA infection (methicillin-resistant Staphylococcus aureus) 041.12 A49.02 4. Metastatic non-small cell lung cancer (HCC) 162.9 C34.90 -Chest tube site looks good, Dr. Edwards trimming tube. -Unclear trigger of fevers, but afebrile now. -Has had 4 weeks of antibiotic therapy. At this time will observe how he does off antibiotics. -Dr. Edwards will later close chest tube site. -Patient advised to call if fevers or malaise appeared. Plan PLAN: No more antibiotics at this time. Follow up: Schedule follow-up here as needed if symptoms worsen. Follow with CT surgery. Author: Nikki Cortes MD 01/28/2019 23:17 documented in this encounter Plan of Treatment Date Type Specialty Care Team Description 02/11/2019 Office Visit Cardiac Surgery Timothy Edwards MD [address] [place] [address] Health Maintenance Due Date Last Done Comments [...] of this encounter Implants Implanted Type Area Lean Specialist Device Shelf Model / Identifier Expiration Serial / Lot Date Dome Hole Plug Left: JOSEPHINE CARDENAS 03/31/2025 [id number] / Implanted: Qty: 1 on 05/31/2015 by Levi Serrano MD at [facility] [employer] / [id number] Polyethylene Neutral Liner Left: JOSEPHINE CARDENAS 10/30/2019 [id number] / Implanted: Qty: 1 on 05/31/2015 by Levi Serrano MD at [facility] [employer] / [id number] Shell With Uni-Hole 60mm Sizemm Left: JOSEPHINE CARDENAS 03/01/2025 00- [id number] / Implanted: Qty: 1 on 05/31/2015 by Levi Serrano MD at [facility] [employer] / [id number] Taperloc Complete Fem Stem - So Sz 14 - [id number] Left: BIOMET 2024 [id number] / Implanted: Qty: 1 on 05/31/2015 by Levi Serrano MD at [facility] / [id number] 36mm Femoral Head Size 3 - [id number] Left: BIOMET 03/01/2025 [id number] / Implanted: Qty: 1 on 05/31/2015 by Levi Serrano MD at [facility] / [id number] documented as of this encounter Results Not on filedocumented in this encounter Visit Diagnoses Diagnosis Empyema lung (HCC) - Primary Empyema without mention of fistula S/P thoracotomy Other postprocedural status MRSA infection (methicillin-resistant Staphylococcus aureus) Methicillin resistant Staphylococcus aureus in conditions classified elsewhere and of unspecified site Metastatic non-small cell lung cancer (HCC) documented in this encounter Additional Health Concerns Infection Noted Time Resolved Time MRSA- Active 12/24/2018 7:22 PM EDT documented as of this encounter Insurance Payer Benefit Plan / Subscriber ID Effective Dates Phone Address Type Group MEDICARE MEDICARE PART A xxxxxxxxxx 2014-Present Medicare & B MEDICAID [facility] xxxxxxxx 2018-Present Medicaid [place] MEDICAID Guarantor Name Account Type Relation to Date of Phone Billing Patient Address Dewayne Ennis Personal/Family 1950 [address] (Home) [place] [phone] [place], [place] (Work) [address] documented as of this encounter Advance Directives 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 Yes Order was discussed with: Patient I discussed all options and patient/surrogate requested and agreed to: Full Code
--- OUTSIDE RECORDS SUMMARY | 2019-03-13 07:34 | XMS REPORT | Summary of Care ---
:1950 Author Organization [facility] Address [address] [place] [address] Care Team Providers Name Role Phone Prudence Greer MD Primary Care Provider Encounter Details Date Type Department Care Team Description 02/09/2019 Hospital Encounter [facility] Outpatient [address] [place] [address] Allergies Active Allergy Reactions Severity Noted Date Comments Ibuprofen Rash 12/24/2018 documented as of this encounter (statuses as of 02/11/2019) Medications Medication Sig Dispensed Refills Start Date [...] as of this encounter (statuses as of 02/11/2019) Active Problems Problem Noted Date History of [...] 06/28/2015 CT scan (chest) w/o contrast - [facility] Left upper lobe lung nodule measuring 0.4 [...] as of this encounter (statuses as of 02/11/2019) Social History Tobacco Use Types Packs/Day Years [...] or relatives? How often do you attend roman catholic or Never 12/24/2018 adventism services? Do you belong to any clubs or No 12/24/2018 organizations such as roman catholic groups, unions, fraternal or athletic groups, or [...] Signs Not on filedocumented in this encounter Plan of Treatment Date [...] of this encounter Implants Implanted Type Area Interstate Bus Driver Device Shelf Model / Identifier Expiration Serial / Lot Date Dome Hole Plug Left: JOSEPHINE CARDENAS 03/31/2025 [id number] / Implanted: Qty: 1 on 05/31/2015 by Levi Serrano MD at [facility] [employer] / [id number] Polyethylene Neutral Liner Left: JOSEPHINE CARDENAS 10/30/2019 [id number] / Implanted: Qty: 1 on 05/31/2015 by Levi Serrano MD at [facility] [employer] / [id number] Shell With Uni-Hole 60mm Sizemm Left: JOSEPHINE CARDENAS 03/01/2025 00- [id number] / Implanted: Qty: 1 on 05/31/2015 by Levi Serrano MD at [facility] [employer] / [id number] Taperloc Complete Fem Stem - So Sz 14 - [id number] Left: BIOMET 2024 [id number] / Implanted: Qty: 1 on 05/31/2015 by Levi Serrano MD at [facility] Hip / [id number] 36mm Femoral Head Size 3 - [id number] Left: BIOMET 03/01/[id number] / Implanted: Qty: 1 on 05/31/2015 by Levi Serrano MD at [facility] Hip / [id number] documented as of this encounter Procedures Procedure Name Priority Date/Time Associated Diagnosis Comments XR CHEST 2 VIEW PA Routine 02/09/2019 12:07 PM Empyema lung (HCC) Results for this AND LATERAL EDT Metastatic non-small procedure are in (STANDARD) cell lung cancer the results (HCC) section. documented in this encounter Results XR CHEST 2 VIEW PA AND LATERAL (STANDARD) (02/09/2019 12:07 PM EDT) Specimen Impressions Performed At Interval decrease in size of left basilar pneumothorax. Left basilar opacity again seen without significant change. Urgency: Routine. This is a routine medical imaging report. Recommendation: No specific imaging recommendation. Signed by Javier Florence MD on 02/10/2019 8:44 AM Narrative Performed At Procedure(s): XR CHEST 2 VIEW PA AND LATERAL (STANDARD) Date of service: 02/09/2019 11:55 AM Provided clinical information: 68 years, Male, "indwelling chest drain" Procedure and materials: Two-view chest Comparison studies: 01/15/2019, 12/31/2018 Observations: Left-sided portacatheter similar in position. Left-sided chest 2 again seen position. Interval decrease in size of left basal pneumothorax. Left basilar opacity again seen without significant change. Right lung field remains clear. Heart size stable. Procedure Note Interface, Rad Results - 02/10/2019 8:46 AM EDT Procedure(s): XR CHEST 2 VIEW PA AND LATERAL (STANDARD) Date of service: 02/09/2019 11:55 AM Provided clinical information: 68 years, Male, "indwelling chest drain" Procedure and materials: Two-view chest Comparison studies: 01/15/2019, 12/31/2018 Observations: Left-sided portacatheter similar in position. Left-sided chest 2 again seen position. Interval decrease in size of left basal pneumothorax. Left basilar opacity again seen without significant change. Right lung field remains clear. Heart size stable. IMPRESSION Interval decrease in size of left basilar pneumothorax. Left basilar opacity again seen without significant change. Urgency: Routine. This is a routine medical imaging report. Recommendation: No specific imaging recommendation. Signed by Javier Florence MD on 02/10/2019 8:44 AM documented in this encounter Visit Diagnoses Diagnosis Empyema lung (HCC) Empyema without mention of fistula Metastatic non-small cell lung cancer (HCC) documented in this encounter Additional Health Concerns Infection Noted Time Resolved Time MRSA- Active 12/24/2018 7:22 PM EDT documented as of this encounter Insurance Payer Benefit Plan / Subscriber ID Effective Dates Phone Address Type Group MEDICARE MEDICARE PART A xxxxxxxxxx 2014-Present Medicare & B MEDICAID [facility] xxxxxxxx 2018-Present Medicaid [place] MEDICAID Guarantor Name Account Type Relation to Date of Phone Billing Patient Address Dewayne Ennis Personal/Family 1950 [phone] [address] (Home) [place] [phone] [place], [place] (Work) [address] documented as of this encounter Advance Directives Type Date Recorded 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 Yes Order was discussed with: Patient I discussed all options and patient/surrogate requested and agreed to: Full Code
[2019-03-13] MEDS ORDERED: cefTRIAXone(*) 1 GM in NS 0.9% 50 ML* 50 ML IVPB ONE (07:47)
--- NOTE | 2019-03-13 07:53 | ED ---
Complex/Multi-Sys Presentation - HPI Summary HPI Summary: 69 year old M brought in by EMS to [facility] accompanied by female installer molding and trim complains of fever 104F since this morning. Patient reports weakness. Patient states he usually has urinary incontinence but denies urinary incontinence today. Patient denies cough, diarrhea, nausea/vomiting, rhinorrhea, sore throat , burning with urination. The patient rates the pain 6/10 in severity. Symptoms aggravated by nothing. Symptoms alleviated by Tylenol "8 hour" per female installer molding and trim at 06:00 today. Patient states he has lung cancer, and is seen by Dr. Sparks and an oncologist in [place]. Patient states that when he had MRSA several months ago, he had a fever then similar to today. - History Of Current Complaint Chief Complaint: EDFever Time Seen by Provider: 03/13/19 07:43 Hx Obtained From: Patient, Family/Jira Developer Onset/Duration: Lasting Hours, Still Present Timing: Constant Severity Currently: Moderate Aggravating Factor(s): Nothing Alleviating Factor(s): Nothing Associated Signs And Symptoms: Positive: Weakness, Other - NEG: urinary incontinence, cough, diarrhea, nausea/vomiting, rhinorrhea, sore throat, burning with urination - Allergies/Home Medications Allergies/Adverse Reactions: Allergies Allergy/AdvReac Type Severity Reaction Status Date / Time ibuprofen [From Motrin] Allergy Agitation Verified 12/01/18 17:46 Home Medications: Home Medications Dexamethasone [Decadron] 4 mg PO BID 03/13/19 [History Confirmed 03/13/19] Folic Acid 1 mg PO DAILY 03/13/19 [History Confirmed 03/13/19] Gabapentin CAP(*) [Neurontin 100 mg CAP(*)] 100 mg PO BEDTIME 03/13/19 [History Confirmed 03/13/19] Magnesium Oxide 400 mg PO DAILY 03/13/19 [History Confirmed 03/13/19] Metoprolol Succinate 12.5 mg PO BEDTIME 03/13/19 [History Confirmed 03/13/19] Oxycodone IR 10 MG(NF) 10 mg PO Q2HR PRN 03/13/19 [History Confirmed 03/13/19] Prazosin HCl 2 mg PO TID 03/13/19 [History Confirmed 03/13/19] PMH/Surg Hx/FS Hx/Imm Hx Endocrine/Hematology History: Reports: Other Endocrine/Hematological Disorders - (right) adrenal mass Denies: Hx Diabetes Cardiovascular History: Reports: Hx Hypertension - meds Denies: Hx Pacemaker/ICD Respiratory History: Reports: Hx Sleep Apnea - evaluation for 12/2013, Other Respiratory Problems/Disorders - ex-smoker Denies: Hx Asthma GI History: Reports: Other GI Disorders - hx inguinal hernia repair History: Reports: Other Problems/Disorders - hx UTI's Denies: Hx Kidney Stones, Hx Renal Disease Sensory History: Denies: Hx Contacts or Glasses, Hx Hearing Aid Opthamlomology History: Denies: Hx Contacts or Glasses Neurological History: Reports: Other Neuro Impairments/Disorders - 05/2011 bilateral subdural hematoma evac d/t trauma Psychiatric History: Reports: Other Psychiatric Issues/Disorders - hx cocaine abuse Denies: Hx Panic Disorder - Cancer History Cancer Type, Location and Year: LUNG CA Hx Chemotherapy: Yes - Surgical History Surgery Procedure, Year, and Place: 06/2011- (left) inguinal hernia repair, ( right) inguinal hernia repair as a child. Keri hole surgery d/t subdural hematoma. HIP REPLACEMENT Infectious Disease History: No Infectious Disease History: Denies: History Other Infectious Disease, Traveled Outside the [place] in Last 30 Days - Family History Known Family History: Positive: Hypertension, Diabetes - Social History Alcohol Use: Occasionally Hx Substance Use: Yes Substance Use Comment - Amount & Last Used: States past not current Hx Tobacco Use: Yes Smoking Status (MU): Former Smoker Type: Cigarettes, Cigars Amount Used/How Often: 1/2 PPD Have You Smoked in the Last Year: Yes Review of Systems Positive: Fever ENT: Negative - rhinorrhea Negative: Sore Throat Negative: Cough Negative: Vomiting, Diarrhea, Nausea Negative: burning, incontinence Positive: Weakness All Other Systems Reviewed And Are Negative: Yes Physical Exam - Summary Physical Exam Summary: VITAL SIGNS: Reviewed. GENERAL: Patient is a well-developed and nourished MALE who is lying comfortable in the stretcher. Patient is not in any acute respiratory distress. Patient has fever 102F. HEAD AND FACE: No signs of trauma. No ecchymosis, hematomas or skull depressions. No sinus tenderness. EYES: PERRLA, EOMI x 2, No injected conjunctiva, no nystagmus. EARS: Hearing grossly intact. Ear canals and tympanic membranes are within normal limits. MOUTH: Oropharynx within normal limits. NECK: Supple, trachea is midline, no adenopathy, no JVD, no carotid bruit, no c- spine tenderness, neck with full ROM. CHEST: Symmetric, no tenderness at palpation. LUNGS: Clear to auscultation bilaterally. No wheezing or crackles. CVS: Regular rate and rhythm, S1 and S2 present, no murmurs or gallops appreciated. ABDOMEN: Soft, non-tender. No signs of distention. No rebound, no guarding, and no masses palpated. Bowel sounds are normal. EXTREMITIES: FROM in all major joints, no edema, no cyanosis or clubbing. NEURO: Alert and oriented x 3. No acute neurological deficits. Speech is normal and follows commands. SKIN: Dry and warm. GCS: 15 Triage Information Reviewed: Yes Vital Signs On Initial Exam: Initial Vitals Temp Pulse Resp BP Pulse Ox 102 F 83 18 159/90 98 03/13/19 07:37 03/13/19 07:37 03/13/19 07:37 03/13/19 07:37 03/13/19 07:37 Vital Signs Reviewed: Yes Diagnostics - Vital Signs Vital Signs Temp Pulse Resp BP Pulse Ox 03/13/19 07:37 102 F 83 18 159/90 98 - Laboratory Result Diagrams: 03/13/19 08:13 03/13/19 08:13 Lab Statement: Any lab studies that have been ordered have been reviewed, and results considered in the medical decision making process. - Radiology Chest x-ray Radiology Interpretation Completed By: Radiologist Summary of Radiographic Findings: Unchanged left lower lobe airspace opacification with a small adjacent pleural effusion. ED physician has reviewed this report. - CT CT Brain CT Interpretation Completed By: Radiologist Summary of CT Findings: 1. No acute intracranial abnormality. 2. 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 3. Mild chronic small vessel ischemic disease is likely. ED physician has reviewed this report. CT Chest CT Interpretation Completed By: Radiologist Summary of CT Findings: 1. Left upper lobe pneumonia is new from March 01, 2019. 2. Similar to slightly decreased left hydropneumothorax with passive atelectasis of left lower lobe. 3. Partially imaged known right adrenal mass. ED physician has reviewed this report. - EKG 0831 Cardiac Rate: NL - 79 BPM EKG Rhythm: Sinus Rhythm EKG Comparison: No Significant Change - 12/18/18 Summary of EKG Findings: Sinus rhythm 79 BPM. Unchanged from 12/18/18 Complex Multi-Symp Course/Dx Assessment/Plan: Blood work without any significant abnormality except for RBCs 3.1, hemoglobin 9.5, hematocrit 29, platelets 541, sodium 133, BUNs 25, creatinine 1.2, glucose 120, and CRP 85.6. Urinalysis is negative for UTI. Chest x-ray impression: Unchanged left lower airspace opacification with a small adjacent pleural effusion. In the ED course, the patient was given Rocephin and Levaquin for pneumonia. I discussed my physical exam and findings with Ms. Massey and she recommends to get a CT of the chest. The chest CT impression: Left upper lobe pneumonia which is new from March 01, 2019. Similar to a slight decrease left hydropneumothorax with passive atelectasis of the left lower lobe. After the CT chest, I discussed again the results with Ms. Massey and she agrees to admit the patient to her services for further workup and management. The patient is hemodynamically stable, alert, and oriented 3. - Diagnoses Provider Diagnoses: Pneumonia - Physician Notifications Discussed Care Of Patient With: Navneet Shilpa Time Discussed With Above Provider: 09:16 Instructed by Provider To: Other - Navneet Solorzanotony, oncology, recommends getting a CT. She agrees to admit patient at 10:45. Discharge ED - Sign-Out/Discharge Documenting (check all that apply): Patient Departure - Admit Patient Received Moderate/Deep Sedation with Procedure: No - Discharge Plan Condition: Stable Disposition: ADMITTED TO [facility] - Billing Disposition and Condition Condition: STABLE Disposition: Admitted to [facility] - Attestation Statements Document Initiated by Scribe: Yes Documenting Scribe: Peyton Walters Provider For Whom Carson is Documenting (Include Credential): Truong Alcaraz MD Scribe Attestation: I, Peyton Walters, scribed for Truong Alcaraz MD on 03/13/19 at 1838. Scribe Documentation Reviewed: Yes Provider Attestation: The documentation as recorded by the scribePeyton accurately reflects the service I personally performed and the decisions made by me, Truong Alcaraz MD Status of Scribe Document: Viewed
[2019-03-13] MEDS ORDERED: NS 0.9% 1000 ML** 1,000 ML IV ONE (08:45)
[2019-03-13 08:47] LABS: Hematocrit 29 % (42-52); Hemoglobin 9.5 g/dL (14.0-18.0); Mean Corpuscular HGB Conc 33 g/dL (31-36); Mean Corpuscular Hemoglobin 30 pg (27-31); Mean Corpuscular Volume 91 fL (80-94); Mean Platelet Volume 8.1 fL (7.4-10.4); Platelet Count 141 10^3/uL (150-450); Red Blood Count 3.16 10^6 /uL (4.18-5.48); Red Cell Distribution Width 16 % (10-15); White Blood Count 4.2 10^3/uL (3.5-10.8)
[2019-03-13 08:49] LABS: Urine Appearance Clear; Urine Bilirubin Negative (Negative); Urine Blood Negative (Negative); Urine Color Yellow; Urine Glucose Negative (Negative); Urine Ketones Negative (Negative); Urine Nitrite Negative (Negative); Urine Protein Negative (Negative); Urine Specific Gravity 1.016 (1.010-1.030); Urine Urobilinogen Negative (Negative)
[2019-03-13 08:59] LABS: Albumin 3.7 g/dL (3.2-5.2); Albumin/Globulin Ratio 1.1 (1-3); BUN/Creatinine Ratio 20.7 (8-20); C Reactive Protein 85.61 mg/L (<8.01); Calcium 9.1 mg/dL (8.6-10.3); EGFR African American 71.7 (>60); EGFR Non-African American 59.3 (>60); Globulin 3.4 g/dL (2-4); Total Bilirubin 0.9 mg/dL (0.2-1.0); Total Protein 7.1 g/dL (6.4-8.9)
[2019-03-13 09:01] LABS: Troponin I 0.03 ng/mL (<0.04)
[2019-03-13] MEDS ORDERED: oxyCODONE TAB* 5 MG TAB PO ONE (09:04)
[2019-03-13 09:12] LABS: ABS Lymphocytes 1.2 10^3/ul (1.0-4.8); ABS Monocytes 1.1 10^3/ul (0-0.8); ABS Neutrophils 1.8 10^3/ul (1.5-7.7); Eosinophil % 0.5 %; Lymphocyte % 28.7 %
[2019-03-13] MEDS ORDERED: Levofloxacin 750 MG IVPREMIX(* 750 MG/150 ML BAG IVPB ONE (09:14)
[2019-03-13 09:32] LABS: Activated Partial Thrombo Time 34.5 seconds (26.0-38.0); Fibrinogen 383.6 mg/dL (110.8-404.3); INR 1.19 (0.82-1.09)
[2019-03-13 09:56] LABS: Erythrocyte Sed Rate 68 mm/Hr (0-19)
[2019-03-13] MEDS ORDERED: NS 0.9% 1000 ML** 1,000 ML IV SCH (11:30)
[2019-03-13] MEDS: Azithromycin 500 mg/250 ml NS 500 MG/250 ML BAG IVPB SCH (13:40)
[2019-03-13] MEDS: Prazosin CAP* 1 MG PO SCH (13:40)
--- NOTE | 2019-03-13 14:16 | HP ---
CC: Dr. Prudence Greer * HISTORY AND PHYSICAL: DATE OF ADMISSION: 03/14/19 PRIMARY CARE PROVIDER: Dr. Prudence Greer. PRIMARY ONCOLOGIST AND ATTENDING PHYSICIAN: Dr. Alex Sparks.* (DICTATED BY SOURAV ZAVALETA) ADMITTING PROVIDER: SOURAV Zavaleta. CHIEF COMPLAINT: Fever. HISTORY OF PRESENT ILLNESS: This is a 69-year-old male with metastatic non- small- cell lung cancer, who is under the care of Dr. Sparks, who presented to the emergency department with complaints of fever. The patient was last hospitalized in this facility from 12/18/18 through 12/24/18, at which point he had an infected PleurX catheter with an associated empyema that eventually required transfer with subsequent washout and chest tube placement and a prolonged period of antibiotics. The chest tube has since been pulled and the patient was initially treated with chemotherapy from September through November, receiving a total of 4 cycles of carboplatin, pemetrexed, and pembrolizumab. His systemic therapy has been on hold from November until 03/05/19, just over a week ago, at which point he resumed chemotherapy and received pemetrexed and pembrolizumab at that time. The patient reports that since receiving treatment last week, he has been somewhat lethargic, but otherwise denied any significant shortness of breath or cough. Starting yesterday, his significant other noted rigors and him seeming to be having difficulty focusing on her. He wet the bed overnight and she noted him to be significantly hot to touch, at which point she contacted EMS for transport to the emergency department. EMS recorded a temperature of 104 degrees Fahrenheit. Temperature was measured at 102 degrees Fahrenheit upon reaching the emergency department. The patient has since received IV fluids and antibiotics and reports that he is feeling slightly better at this time. PAST MEDICAL HISTORY: 1. Metastatic qre-znxgj-unyf lung cancer. 2. Hypertension. 3. Sleep apnea. PAST SURGICAL HISTORY: 1. Keri hole craniotomy for subdural hematoma evacuation in 2010. 2. Total hip replacement. 3. Bilateral inguinal hernia repair. HOME MEDICATIONS: 1. Dexamethasone 4 mg p.o. twice daily for use the day before and 2 days following chemotherapy. 2. Folic acid 1 mg p.o. daily. 3. Gabapentin 100 mg p.o. at bedtime. 4. Lisinopril/hydrochlorothiazide 20/25 one tablet p.o. daily. 5. Magnesium oxide 400 mg p.o. daily. 6. Metoprolol succinate 12.5 mg p.o. at bedtime. 7. Oxycodone 10 mg p.o. q.2 hours as needed for pain. 8. Prazosin 2 mg p.o. 3 times daily. ROS: Full review of systems completed. Positive review as noted in the HPI, otherwise negative. FAMILY HISTORY: The patient has a total of 6 siblings, 1 brother who passed of dementia and another who passed of an [place] and another brother with cirrhosis. SOCIAL HISTORY: The patient is single, but lives with his significant other. He has a history of smoking, quit approximately 5 years ago, but has approximately a 19-egfd-xchg smoking history. He was incarcerated over 30 years ago and has a remote history of cocaine abuse. Occasionally consumes alcohol. DIAGNOSTIC STUDIES/LAB DATA: Hospital Imagin. Chest x-ray shows unchanged left lower lobe airspace opacification with small adjacent pleural effusion. 2. CT brain shows no acute intracranial abnormality, evidence of an old right frontal lacunar infarct. 3. CT chest demonstrates a new left upper lobe pneumonia when compared to CT from 03/01/19 and there is a similar to slightly decreased left hydropneumothorax with passive atelectasis of the left lower lobe and a partially imaged known right adrenal mass, which appears unchanged. Laboratory Evaluation: CBC shows a white blood cell count of 4200 with neutrophil count of 1800, hemoglobin 9.5 g/dL, and a platelet count of 141,000. INR of 1.19. Comprehensive metabolic panel shows a sodium of 133 mmol/L, potassium 4.0, BUN 25, creatinine 1.21, glucose 120. Transaminases and total bilirubin within normal limits. Troponin 0.03. CRP 85. Urinalysis unremarkable. PHYSICAL EXAMINATION GENERAL: This a 69-year-old man who appears younger than stated age and is in no acute distress, accompanied by his significant other. VITAL SIGNS: At the time of admission, temperature 102 degrees Fahrenheit, pulse 83 beats per minute, respiratory rate 18, oxygen saturation 98% on room air, and blood pressure 159/90 mmHg. HEENT: Head is normocephalic and atraumatic. Mucous membranes are pink and moist. RESPIRATORY: There are a few rhonchi appreciated. CARDIOVASCULAR: Heart has a regular rate and rhythm without murmurs, rubs, or gallops. ABDOMEN: Soft and nontender to palpation. EXTREMITIES: Showed no edema. ASSESSMENT AND PLAN: 1. This is a 69-year-old man with metastatic beu-etazq-nbks lung cancer, who recently resumed chemotherapy with pemetrexed and pembrolizumab on 03/05/19, who presented to the emergency department with significant fever. He is not neutropenic, but has evidence of a new lung infiltrate. Review of his recent staging scan from a couple of weeks ago shows no significant change in the appearance of the left lower lobe hydropneumothorax, making this less likely to be a recurrent empyema. The patient will be admitted for pneumonia and started on treatment for community-acquired pathogens and ceftriaxone and azithromycin. He is not hypoxic at this time. 2. Metastatic quw-aizod-qpgg lung cancer - pemetrexed and pembrolizumab given 03/05/19. We will monitor for subsequent cytopenias as he is likely entering his amanda period as today is day 8. 3. History of left-sided empyema, status post chest tube removal. 4. Hypertension - continue antihypertensive medications at this time, but will hold appropriately if he develops hypotension. 5. Code status. The patient is full code. 6. DVT prophylaxis with Lovenox subcu daily. DISPOSITION: The patient is being admitted to inpatient status for diagnosis of pneumonia with anticipated length of stay to be greater than 2 midnights. SOURAV ZAVALETA [id number]/CPS #: [id number] MTDD
[2019-03-13] MEDS: oxyCODONE TAB* 5 MG TAB PO PRN ×2 (15:35→20:32)
[2019-03-13] MEDS: Gabapentin CAP(*) 100 MG PO SCH (20:31)
[2019-03-13] MEDS: Metoprolol Succinate XL TAB* 25 MG PO SCH (20:31)
[2019-03-13] MEDS: Acetaminophen TAB* 325 MG PO PRN (20:32)
[2019-03-14] MEDS: Prazosin CAP* 1 MG PO SCH ×4 (02:38→20:59)
[2019-03-14] MEDS: cefTRIAXone(*) 1 GM in NS 0.9% 50 ML* 50 ML IVPB SCH (08:16)
[2019-03-14] MEDS: oxyCODONE TAB* 5 MG TAB PO PRN ×2 (08:17→19:52)
[2019-03-14] MEDS: Lisinopril TAB* 10 MG PO SCH (08:17)
[2019-03-14] MEDS: Folic Acid TAB* 1 MG PO SCH (08:17)
[2019-03-14] MEDS: Magnesium Oxide TAB* 400 MG PO SCH (08:17)
[2019-03-14] MEDS: Hydrochlorothiazide TAB* 25 MG PO SCH (08:17)
[2019-03-14 08:46] LABS: Hematocrit 27 % (42-52); Hemoglobin 9.3 g/dL (14.0-18.0); Mean Corpuscular HGB Conc 34 g/dL (31-36); Mean Corpuscular Hemoglobin 31 pg (27-31); Mean Corpuscular Volume 91 fL (80-94); Mean Platelet Volume 8.1 fL (7.4-10.4); Platelet Count 110 10^3/uL (150-450); Red Cell Distribution Width 16 % (10-15); White Blood Count 5.5 10^3/uL (3.5-10.8)
[2019-03-14 09:05] LABS: Albumin 3.2 g/dL (3.2-5.2); Calcium 8.9 mg/dL (8.6-10.3); EGFR African American 89.4 (>60); EGFR Non-African American 73.9 (>60); Globulin 3.1 g/dL (2-4); Potassium 3.8 mmol/L (3.5-5.0); Total Bilirubin 0.4 mg/dL (0.2-1.0); Total Protein 6.3 g/dL (6.4-8.9)
[2019-03-14 09:15] LABS: ABS Lymphocytes 1.7 10^3/ul (1.0-4.8); ABS Monocytes 1.4 10^3/ul (0-0.8); ABS Neutrophils 2.4 10^3/ul (1.5-7.7); Eosinophil % 0.8 %; Lymphocyte % 30.5 %; Nucleated Red Blood Cells % 0.1
[2019-03-14] MEDS ORDERED: Alteplase (CATHFLO)* 2 MG/2 ML VIAL IV ONE (10:35)
--- NOTE | 2019-03-14 10:42 | PN ---
Progress Note - Progress Note Date of Service: 03/14/19 SOAP: Subjective: [He is feeling a little better today. No MÉNDEZ, no cough. Afebrile overnight. No hypoxia.] Objective: [ Vital Signs: Temp Pulse Resp BP Pulse Ox 97.3 F 54 16 121/69 100 03/14/19 08:00 03/14/19 08:00 03/14/19 08:17 03/14/19 08:00 03/14/19 08:00 Acetaminophen (Tylenol Tab*) 650 mg PO Q6H PRN PRN Reason: pain/fever Last Admin: 03/13/19 20:32 Dose: 650 mg Alteplase, Recombinant (Cathflo Activase*) 2 mg IV ONCE ONE Stop: 03/14/19 10:36 Folic Acid (Folvite Tab*) 1 mg PO DAILY [facility] Last Admin: 03/14/19 08:17 Dose: 1 mg Gabapentin (Neurontin Cap(*)) 100 mg PO BEDTIME [facility] Last Admin: 03/13/19 20:31 Dose: 100 mg Hydrochlorothiazide (Hydrodiuril Tab*) 25 mg PO DAILY [facility] Last Admin: 03/14/19 08:17 Dose: 25 mg Azithromycin (Zithromax 500 Mg/250 Ml) 500 mg in 250 mls @ 250 mls/hr IVPB Q24H [facility] Last Admin: 03/13/19 13:40 Dose: 250 mls/hr Ceftriaxone Sodium 1 gm/ (Sodium Chloride) 50 mls @ 100 mls/hr IVPB Q24H [facility] Last Admin: 03/14/19 08:16 Dose: 100 mls/hr Lisinopril (Prinivil Tab*) 20 mg PO DAILY [facility] Last Admin: 03/14/19 08:17 Dose: 20 mg Magnesium Oxide (Magox 400 Tab*) 400 mg PO DAILY [facility] Last Admin: 03/14/19 08:17 Dose: 400 mg Metoprolol Succinate (Toprol Xl Tab*) 12.5 mg PO BEDTIME [facility] Last Admin: 03/13/19 20:31 Dose: 12.5 mg Oxycodone HCl (Roxycodone Tab*) 10 mg PO Q2HR PRN PRN Reason: PAIN - MODERATE Last Admin: 03/14/19 08:17 Dose: 10 mg Prazosin HCl (Minipress Cap*) 2 mg PO TID [facility] Last Admin: 03/14/19 08:17 Dose: 2 mg Laboratory Results - last 24 hr 03/13/19 03/14/19 03/14/19 12:44 08:30 08:30 WBC 5.5 RBC 3.00 L Hgb 9.3 L Hct 27 L MCV 91 MCH 31 MCHC 34 RDW 16 H Plt Count 110 L MPV 8.1 Neut % (Auto) 42.8 Lymph % (Auto) 30.5 [place]osa % (Auto) 25.8 Eos % (Auto) 0.8 Baso % (Auto) 0.1 Absolute Neuts (auto) 2.4 Absolute Lymphs (auto) 1.7 Absolute Monos (auto) 1.4 H Absolute Eos (auto) 0.0 Absolute Basos (auto) 0.0 Absolute Nucleated RBC 0.0 Neutrophils % 41.0 Lymphocytes % 33.0 Monocytes % 26.0 Nucleated RBC % 0.1 Normal RBC Morphology Normal Sodium 137 Potassium 3.8 Chloride 108 Carbon Dioxide 24 Anion Gap 5 BUN 19 Creatinine 1.00 Est GFR ( Amer) 89.4 Est GFR (Non-Af Amer) 73.9 BUN/Creatinine Ratio 19.0 Glucose 103 H Lactic Acid 1.2 Calcium 8.9 Total Bilirubin 0.40 AST 35 ALT 26 Alkaline Phosphatase 52 Total Protein 6.3 L Albumin 3.2 Globulin 3.1 Albumin/Globulin Ratio 1.0 Exam: Gen: Relatively well appearing 69 yo male in NAD HEENT: missing a few teeth, MMM CV: RRR, no m/r/g Resp: few crackles appreciated in L mid lung siu and diminished sounds in the L lung base Abd: soft and nonTTP Ext: no edema] Assessment: [This is a 69 yo male with metastatic NSCLC with h/o empyema secondary to an infected pleurex catheter s/p drainage and prolonged abx who recent resumed chemotherapy and presented with a fever and new L sided infiltrate on CT without evidence of reaccumulated empyema.] Plan: [1. PNA - appears much better clinically - cont ceftriaxone/azithro 2. NSCLC - C1D1 pemetrexed/pembrolizumab 03/05/19 - not neutropenic at this time 3. HTN Dispo: anticipate dc home tomorrow to complete a course of oral abx, barring any complications]
[2019-03-14] MEDS: Azithromycin 500 mg/250 ml NS 500 MG/250 ML BAG IVPB SCH (12:13)
[2019-03-14] MEDS ORDERED: Alteplase (CATHFLO)* 2 MG/2 ML VIAL ONE (16:00)
[2019-03-14] MEDS: Acetaminophen TAB* 325 MG PO PRN (19:52)
[2019-03-14] MEDS: Gabapentin CAP(*) 100 MG PO SCH (20:58)
[2019-03-14] MEDS: Metoprolol Succinate XL TAB* 25 MG PO SCH (20:59)
[2019-03-15] MEDS: cefTRIAXone(*) 1 GM in NS 0.9% 50 ML* 50 ML IVPB SCH (07:40)
[2019-03-15] MEDS: Folic Acid TAB* 1 MG PO SCH (07:42)
[2019-03-15] MEDS: Hydrochlorothiazide TAB* 25 MG PO SCH (07:42)
[2019-03-15] MEDS: oxyCODONE TAB* 5 MG TAB PO PRN ×2 (07:42→13:00)
[2019-03-15] MEDS: Magnesium Oxide TAB* 400 MG PO SCH (07:42)
[2019-03-15] MEDS: Lisinopril TAB* 10 MG PO SCH (07:42)
[2019-03-15] MEDS: Prazosin CAP* 1 MG PO SCH (07:45)
[2019-03-15 09:30] VITALS: BP 142/69
[2019-03-15 10:07] LABS: Hematocrit 27 % (42-52); Mean Corpuscular HGB Conc 33 g/dL (31-36); Mean Corpuscular Hemoglobin 30 pg (27-31); Mean Corpuscular Volume 91 fL (80-94); Mean Platelet Volume 8.6 fL (7.4-10.4); Platelet Count 127 10^3/uL (150-450); Red Cell Distribution Width 16 % (10-15); White Blood Count 3.8 10^3/uL (3.5-10.8)
--- NOTE | 2019-03-15 10:33 | DS ---
- Discharge Summary Admission Date: 03/13/19 Discharge Date: 03/15/19 Discharge Diagnosis: 1. Left upper lobe pneumonia: no further fevers, home on abx. to complete 14 days 2. NSCLC: plan to resume chemotherapy on schedule 03/26, assessment in clinic 03/23 3. HTN: resume home meds Discharge Medications: Medication Instructions Recorded Confirmed Type Lisinopril/HCTZ (NF) 1 tab PO DAILY 08/29/18 03/13/19 History [Zestoretic (NF)] Folic Acid 1 mg PO DAILY 03/13/19 03/13/19 History Gabapentin CAP(*) [Neurontin 100 100 mg PO BEDTIME 03/13/19 03/13/19 History mg CAP(*)] Magnesium Oxide 400 mg PO DAILY 03/13/19 03/13/19 History Metoprolol Succinate 12.5 mg PO BEDTIME 03/13/19 03/13/19 History Oxycodone IR 10 MG(NF) 10 mg PO Q2HR PRN 03/13/19 03/13/19 History Prazosin HCl 2 mg PO TID 03/13/19 03/13/19 History Dexamethasone [Decadron] 4 mg PO SEE INSTRUCTIONS #6 tablet 03/15/19 Rx Levofloxacin TAB* [Levaquin TAB*] 750 mg PO DAILY #11 tab 03/15/19 Rx Disposition: home Condition: good Activity: as tolerated Diet: as tolerated Hospital Course: Please see admission not for full H&P, however, briefly, Mr. Ennis is well known to our service due to his unfortunate diagnosis of advanced NSCLC with complication of empyema Loulou fully recovered and recently resumed doublet therapy with Pembroluzimab and Pemetrexed on 03/05/19. He presented to the ER on 03/13/19 with progressive fatigue and chills, and lethargy. In the ER he was found to be febrile and a CT of the brain was negative for acute findings. A chest x-ray showed stable lower left lobe findings, however a subsequent CT of the chest revealed a left upper lobe pneumonia. Mr. Ennis has not been neutropenic, however with severity of prior pulmonary infection he was admitted for IV abx. He has improved daily with stable counts and is in good condition for d/c home. Work-up was negative for sepsis and he has not had any further fevers since presentation to the ER. He will be discharged on Levaquin to complete a full 14 days and will follow-up in our office on 03/23 to evaluate readiness to continue chemotherapy. Plan of care was reviewed at length and all questions answered. >40 min spent with >50% face to face counseling
[2019-03-15 11:04] LABS: ABS Eosinophils 0.1 10^3/ul (0-0.6); ABS Lymphocytes 1.6 10^3/ul (1.0-4.8); ABS Neutrophils 1.1 10^3/ul (1.5-7.7); Eosinophil % 3.1 %; Lymphocyte % 42.6 %; Nucleated Red Blood Cells % 0.2
== END 2019-03-15 13:20 | disposition home or self-care (01) | DRG 194 ==
LOC: ED 07:27 → MED 11:16
PROVIDERS: ADMIT Internal Medicine Hematology & Oncology; ATTEND Internal Medicine Hematology & Oncology
DX: J18.1 Lobar pneumonia, unspecified organism (principal); C34.90 Malignant neoplasm of unspecified part of unspecified bronchus or lung; J94.8 Other specified pleural conditions; J98.11 Atelectasis; I10 Essential (primary) hypertension; G47.30 Sleep apnea, unspecified; Z96.649 Presence of unspecified artificial hip joint; Z79.891 Long term (current) use of opiate analgesic; Z79.899 Other long term (current) drug therapy; Z82.49 Family history of ischemic heart disease and other diseases of the circulatory system; Z84.1 Family history of disorders of kidney and ureter; Z87.891 Personal history of nicotine dependence
CPT/HCPCS: 36415; 70450; 71046; 71250; 80053; 81003; 82550; 83605; 83880; 84484; 85025; 85060; 85384; 85610; 85652; 85730; 86140; 87040; 93005; 99222; 99232; 99239; 99284; A9270-GY; J0456; J0696; J1642; J2997

== ENCOUNTER 2019-04-17 18:35 | Emergency (ER) | payer MEDICARE, MEDICAID ==
--- NOTE | 2019-04-17 18:49 | ED ---
Altered Mental Status - HPI Summary HPI Summary: Per EMS patient had a period of unresponsiveness times a couple minutes this evening. Episode was witnessed by friend who states patient was bilateral arms went rigid and patient was unresponsive to stimuli. Friend denies fall or trauma. Patient during episode. EMS states patient was not posticta. Patient has history of lung cancer being treated with chemotherapy, and has history of similar episodes status post chemotherapy treatment. Patient had chemotherapy treatment yesterday. Patient denies any symptoms prior to event, and no symptoms after event. Patient has been receiving chemotherapy since September 2018. Patient also states he is out of his lisinopril, and did not take it today. Last was taken yesterday. Patient denies any other pain, injury or symptoms. - History Of Current Complaint Chief Complaint: EDGeneral Stated Complaint: "AMS PER EMS" Time Seen by Provider: 04/17/19 18:46 Hx Obtained From: Patient Onset/Duration: Resolved, Suddenly Timing: Lasting Minutes Severity Initially: Moderate Severity Currently: None Aggravating Factor(s): Unknown Alleviating Factor(s): Unknown Associated Signs And Symptoms: Positive: Negative - Allergies/Home Medications Allergies/Adverse Reactions: Allergies Allergy/AdvReac Type Severity Reaction Status Date / Time ibuprofen [From Motrin] Allergy Agitation Verified 04/17/19 18:45 Home Medications: Home Medications Dexamethasone TAB* [Decadron TAB*] 4 mg PO SEE INSTRUCTIONS 04/17/19 [History Confirmed 04/17/19] PMH/Surg Hx/FS Hx/Imm Hx Endocrine/Hematology History: Reports: Other Endocrine/Hematological Disorders - (right) adrenal mass Denies: Hx Diabetes Cardiovascular History: Reports: Hx Hypertension - meds Denies: Hx Pacemaker/ICD Respiratory History: Reports: Hx Sleep Apnea - evaluation for 12/2013, Other Respiratory Problems/Disorders - ex-smoker Denies: Hx Asthma GI History: Reports: Other GI Disorders - hx inguinal hernia repair History: Reports: Other Problems/Disorders - hx UTI's Denies: Hx Kidney Stones, Hx Renal Disease Sensory History: Denies: Hx Contacts or Glasses, Hx Hearing Aid Opthamlomology History: Denies: Hx Contacts or Glasses Neurological History: Reports: Other Neuro Impairments/Disorders - 05/2011 bilateral subdural hematoma evac d/t trauma Psychiatric History: Reports: Other Psychiatric Issues/Disorders - hx cocaine abuse Denies: Hx Panic Disorder - Cancer History Cancer Type, Location and Year: LUNG CA Hx Chemotherapy: Yes - Surgical History Surgery Procedure, Year, and Place: 06/2011- (left) inguinal hernia repair, ( right) inguinal hernia repair as a child. [place] hole surgery d/t subdural hematoma. HIP REPLACEMENT Infectious Disease History: Yes Infectious Disease History: Denies: History Other Infectious Disease, Traveled Outside the [place] in Last 30 Days - Family History Known Family History: Positive: Hypertension, Diabetes - Social History Alcohol Use: Occasionally Hx Substance Use: Yes Substance Use Type: Reports: None Substance Use Comment - Amount & Last Used: States past not current Hx Tobacco Use: Yes Smoking Status (MU): Former Smoker Type: Cigarettes, Cigars Amount Used/How Often: 1/2 PPD Have You Smoked in the Last Year: Yes Review of Systems Constitutional: Negative Eyes: Negative ENT: Negative Cardiovascular: Negative Respiratory: Negative Gastrointestinal: Negative Genitourinary: Negative Musculoskeletal: Negative Skin: Negative Neurological: Other Psychological: Normal All Other Systems Reviewed And Are Negative: Yes Physical Exam Triage Information Reviewed: Yes Vital Signs On Initial Exam: Initial Vitals Temp Pulse Resp BP Pulse Ox 99.1 F 73 14 185/105 97 04/17/19 18:36 04/17/19 18:36 04/17/19 18:36 04/17/19 18:36 04/17/19 18:36 Vital Signs Reviewed: Yes Appearance: Positive: Well-Appearing Skin: Positive: Warm Head/Face: Positive: Normal Head/Face Inspection Eyes: Positive: Normal ENT: Positive: Normal ENT inspection Neck: Positive: Supple Respiratory/Lung Sounds: Positive: Clear to Auscultation Cardiovascular: Positive: Normal Abdomen Description: Positive: Nontender Musculoskeletal: Positive: Normal Neurological: Positive: Normal Psychiatric: Positive: Normal AVPU Assessment: Alert - Cornelius Coma Scale Best Eye Response: 4 - Spontaneous Best Motor Response: 6 - Obeys Commands Best Verbal Response: 5 - Oriented Coma Scale Total: 15 Procedures - Sedation Patient Received Moderate/Deep Sedation with Procedure: No Diagnostics - Vital Signs Vital Signs Temp Pulse Resp BP Pulse Ox 04/17/19 18:36 99.1 F 73 14 185/105 97 - Laboratory Result Diagrams: 04/17/19 19:04 04/17/19 19:04 Lab Statement: Any lab studies that have been ordered have been reviewed, and results considered in the medical decision making process. Altered Mental Statu Course/Dx - Course Course Of Treatment: Per EMS patient had a period of unresponsiveness times a couple minutes this evening. Episode was witnessed by friend who states patient was bilateral arms went rigid and patient was unresponsive to stimuli. Friend denies fall or trauma. Patient during episode. EMS states patient was not posticta. Patient has history of lung cancer being treated with chemotherapy, and has history of similar episodes status post chemotherapy treatment. Patient had chemotherapy treatment yesterday. Patient denies any symptoms prior to event, and no symptoms after event. Patient has been receiving chemotherapy since September 2018. Patient also states he is out of his lisinopril, and did not take it today. Last was taken yesterday. Patient denies any other pain, injury or symptoms. BP elevated 185/105. Patient has not taken his daily lisinopril today, stating he ran out of his meds yesterday. Patient's lisinopril administered here in the ED. This 11.7 up from 5.4 yesterday. Hemoglobin 10.2 down from 11.2 yesterday. Creatinine 1.27 up from 1.14 yesterday. EKG sinus bradycardia, heart rate 59, no change from prior except for heart rate. Patient back at baseline. Discussed patient with attending Dr. Sanz who reviewed patient labs and recommended discussing patient with oncology. Discussed patient with oncology Dr. Hannah who also felt discharge was reasonable. History of brain CT 03/13/19 which was negative. - Diagnoses Provider Diagnoses: Altered mental status Discharge ED - Sign-Out/Discharge Documenting (check all that apply): Patient Departure - Discharge Plan Condition: Stable Disposition: HOME Patient Education Materials: Altered Mental Status (ED) Referrals: Prudence Greer MD [Primary Care Provider] - Additional Instructions: Follow-up with oncologist regarding episodes of altered mental status status post chemotherapy. - Billing Disposition and Condition Condition: STABLE Disposition: Home - Attestation Statements Provider Attestation: I have seen the patient with the BROWN and agree with the plan and documentation below except as noted: 69-year-old male history of prior intermittent altered mental status episodes, followed by oncology presents with episode of decreased responsiveness, now back at baseline. Labs w slightly elevated WBC, otherwise unremarkable. No source of infection. Discuss with oncology, head CT on 03/13 for similar episode unremarkable. Peewee Sanz MD
[2019-04-17] MEDS ORDERED: Lisinopril/HCTZ 20/25(NF) TAB PO ONE (19:20)
[2019-04-17 19:27] LABS: ABS Lymphocytes 1.2 10^3/ul (1.0-4.8); ABS Monocytes 1.5 10^3/ul (0-0.8); Hematocrit 32 % (42-52); Hemoglobin 10.2 g/dL (14.0-18.0); Lymphocyte % 9.9 %; Mean Corpuscular HGB Conc 32 g/dL (31-36); Mean Corpuscular Hemoglobin 29 pg (27-31); Mean Corpuscular Volume 92 fL (80-94); Mean Platelet Volume 8.4 fL (7.4-10.4); Platelet Count 291 10^3/uL (150-450); Red Blood Count 3.46 10^6 /uL (4.18-5.48); Red Cell Distribution Width 18 % (10-15); White Blood Count 11.7 10^3/uL (3.5-10.8)
[2019-04-17 19:30] LABS: Albumin 4.1 g/dL (3.2-5.2); BUN/Creatinine Ratio 21.3 (8-20); C Reactive Protein 3.61 mg/L (<8.01); Calcium 9.4 mg/dL (8.6-10.3); EGFR African American 67.8 (>60); EGFR Non-African American 56.1 (>60); Potassium 4.2 mmol/L (3.5-5.0); Total Bilirubin 0.3 mg/dL (0.2-1.0); Total Protein 8.1 g/dL (6.4-8.9)
[2019-04-17] MEDS ORDERED: Acetaminophen TAB* 325 MG PO ONE (19:31)
[2019-04-17] MEDS ORDERED: NS 0.9% 1000 ML** 1,000 ML IV ONE (19:32)
[2019-04-17] MEDS ORDERED: Lisinopril TAB* 10 MG PO ONE (20:00)
[2019-04-17] MEDS ORDERED: Hydrochlorothiazide TAB* 25 MG PO ONE (20:00)
[2019-04-17 20:06] LABS: TSH (Thyroid Stimulating Horm) 0.61 mcIU/mL (0.34-5.60)
[2019-04-17 20:35] LABS: Urine Appearance Cloudy; Urine Bacteria Absent (Absent); Urine Bilirubin 1+ (Negative); Urine Blood Negative (Negative); Urine Color Yellow; Urine Glucose Negative (Negative); Urine Ketones Negative (Negative); Urine Nitrite Negative (Negative); Urine Protein 1+(30 mg/dL) (Negative); Urine Red Blood Cell Trace(0-2/hpf) (Absent); Urine Specific Gravity 1.017 (1.010-1.030); Urine Squamous Epithelial Cell Present (Absent); Urine Urobilinogen Negative (Negative); Urine White Blood Cell Trace(0-5/hpf) (Absent)
[2019-04-17 21:19] VITALS: BP 178/114
== END 2019-04-17 21:18 | disposition home or self-care (01) ==
LOC: ED 18:35
DX: R41.82 Altered mental status, unspecified (principal); C34.90 Malignant neoplasm of unspecified part of unspecified bronchus or lung; I10 Essential (primary) hypertension; Z87.891 Personal history of nicotine dependence; Z79.899 Other long term (current) drug therapy; Z88.6 Allergy status to analgesic agent
CPT/HCPCS: 36415; 80053; 81003; 81015; 83605; 84443; 84484; 85025; 86140; 87086; 93005; 96360; 99283; A9270-GY

== ENCOUNTER 2019-06-26 11:14 | Emergency (ER) | payer MEDICAID, MEDICARE ==
[2019-06-26] MEDS ORDERED: NS 0.9% 500 ML* 500 ML IV ONE (11:25)
--- NOTE | 2019-06-26 11:46 | ED ---
HPI Febrile Illness - HPI Summary HPI Summary: 69 y/o male presented to [facility] complaining of febrile illness present for days. Since onset he has presented with fever at a temperature of 101F that has since resolved according to vitals, productive cough, diaphoresis, sore throat, postnasal drip, and blood in his mucus. He claims his voice has become hoarse as well. He denies neck pain. He currently has cancer of the left lung for which his last chemotherapy appointment was yesterday with Dr. Sparks. He has a port on his left side. He took 2 Aleve last night to relieve himself of the fever. He has not had his flu shot. - History of Current Complaint Chief Complaint: EDFluSymptoms Time Seen by Provider: 06/26/19 11:24 Hx Obtained From: Patient, Family/Service Station Attendant Onset/Duration: Started Days Ago, Still Present Current Severity: None Pain Intensity: 0 Pain Scale Used: 0-10 Numeric Associated Signs and Symptoms: Cough - w/ sputum, Diaphoresis - changed voice, Sore Throat, Other: - bloody mucus, sore throat, postnasal drip - Additional Pertinent History Primary Care Physician: MAKENZIE - Allergy/Home Medications Allergies/Adverse Reactions: Allergies Allergy/AdvReac Type Severity Reaction Status Date / Time ibuprofen [From Motrin] Allergy Agitation Verified 06/26/19 11:20 PMH/Surg Hx/FS Hx/Imm Hx Endocrine/Hematology History: Reports: Other Endocrine/Hematological Disorders - (right) adrenal mass Denies: Hx Diabetes Cardiovascular History: Reports: Hx Hypertension - meds Denies: Hx Pacemaker/ICD Respiratory History: Reports: Hx Sleep Apnea - evaluation for 12/2013, Other Respiratory Problems/Disorders - ex-smoker Denies: Hx Asthma GI History: Reports: Other GI Disorders - hx inguinal hernia repair History: Reports: Other Problems/Disorders - hx UTI's Denies: Hx Kidney Stones, Hx Renal Disease Sensory History: Denies: Hx Contacts or Glasses, Hx Hearing Aid Opthamlomology History: Denies: Hx Contacts or Glasses Neurological History: Reports: Other Neuro Impairments/Disorders - 05/2011 bilateral subdural hematoma evac d/t trauma Psychiatric History: Reports: Other Psychiatric Issues/Disorders - hx cocaine abuse Denies: Hx Panic Disorder - Cancer History Cancer Type, Location and Year: LUNG CA Hx Chemotherapy: Yes - Surgical History Surgery Procedure, Year, and Place: 06/2011- (left) inguinal hernia repair, ( right) inguinal hernia repair as a child. [place] hole surgery d/t subdural hematoma. HIP REPLACEMENT Infectious Disease History: Yes Infectious Disease History: Denies: History Other Infectious Disease, Traveled Outside the [place] in Last 30 Days - Family History Known Family History: Positive: Hypertension, Diabetes - Social History Alcohol Use: Occasionally Hx Substance Use: Yes Substance Use Type: Reports: None Substance Use Comment - Amount & Last Used: States past not current Hx Tobacco Use: Yes Smoking Status (MU): Former Smoker Type: Cigarettes, Cigars Amount Used/How Often: 1/2 PPD Have You Smoked in the Last Year: Yes Review of Systems Positive: Fever - resolved, Skin Diaphoresis Positive: Sore Throat, Nasal Discharge - postnasal drip, Other - blood in mucus Positive: Cough - sputum All Other Systems Reviewed And Are Negative: Yes Physical Exam - Summary Physical Exam Summary: Constitutional: Well-developed, Well-nourished, Alert. (-) Distressed Skin: Warm, Dry HENT: Normocephalic; Atraumatic, Rhinorrhea Eyes: Conjunctiva normal Neck: Musculoskeletal ROM normal neck. (-) JVD, (-) Stridor, (-) Nuchal rigidity Cardio: Rhythm regular, rate normal, Heart sounds normal; Intact distal pulses; Radial pulses are 2+ and symmetric. (-) Murmur Pulmonary/Chest wall: Effort normal. (-) Respiratory distress, (-) Wheezes, (-) Rales, decreased lung sounds in left lower lobe Abd: Soft, (-) tenderness, (-) Distension, (-) Guarding, (-) Rebound Musculoskeletal: (-) Edema Lymph: (-) Cervical adenopathy Neuro: Alert, Oriented x3 Psych: Mood and affect Normal Triage Information Reviewed: Yes Vital Signs On Initial Exam: Initial Vitals Temp Pulse Resp BP Pulse Ox 98.0 F 112 20 123/76 99 06/26/19 11:17 06/26/19 11:17 06/26/19 11:17 06/26/19 11:17 06/26/19 11:17 Vital Signs Reviewed: Yes Procedures - Sedation Patient Received Moderate/Deep Sedation with Procedure: No Diagnostics - Vital Signs Vital Signs Temp Pulse Resp BP Pulse Ox 01/04/20 11:17 98.0 F 112 20 123/76 99 - Laboratory Result Diagrams: 06/26/19 11:37 06/26/19 13:28 Lab Statement: Any lab studies that have been ordered have been reviewed, and results considered in the medical decision making process. - Radiology CXR Radiology Interpretation Completed By: Radiologist Summary of Radiographic Findings: IMPRESSION: Left lower lobe mass similar to February 2019. Right lung is clear. This report was reviewed by the ED physician. cxr Radiology Interpretation Completed By: Radiologist Summary of Radiographic Findings: IMPRESSION: Left lower lobe mass similar to February 2019. Right lung is clear. This report was reviewed by the ED physician. Re-Evaluation - Re-Evaluation First Eval Re-Evaluation Time: 12:11 Comment: Pt has elevated lactic acid, will give fluids Second Eval Re-Evaluation Time: 01:15 Change: Improved - HR dec, flu neg, CXR neg. Will repeat LA and BMP given [facility] Course/Dx - Course Course Of Treatment: 69-year-old male with a history of left-sided lung cancer on chemotherapy followed with Dr. Sparks, presents with fever, cough, feeling unwell. - Physical exam of the well-appearing male, decreased lung sounds on the left. Afebrile here. Labs notable for elevated lactic acid. Given 1.5 L of fluids, check flu. Chest x-ray - Diagnoses Provider Diagnoses: Fever, URI (upper respiratory infection) - Provider Notifications Discussed Care Of Patient With: Sandeep Fontana Time Discussed With Above Provider: 12:50 Instructed by Provider To: Other - Dr. Fontana is aware that the pt is here, d/w labs notable for elevated LA but normal WBC, CXR, flu neg. At 1454 Dr. Fontana stated that he was okay with the creatinine bump because we gave the pt fluids. Discharge ED - Sign-Out/Discharge Documenting (check all that apply): Patient Departure - dc - Discharge Plan Condition: Stable Disposition: HOME Patient Education Materials: Fever in Adults (ED), Upper Respiratory Infection (ED) Referrals: Prudence Greer MD [Primary Care Provider] - Additional Instructions: You were seen in the emergency department for fever and cough. Your x-ray did not show pneumonia. Your fluids negative. We gave you fluids for a slightly elevated kidney function. Please drink fluids at home. Please follow up with your oncologist. If any studies were not completed at the time of discharge you will be called with the relevant results. Please follow up with your primary care doctor in the next 2-3 days and return to the emergency department for Fevers, trouble breathing, worsening or concerning symptoms. It was a pleasure taking care of you today. - Billing Disposition and Condition Condition: STABLE Disposition: Home - Attestation Statements Document Initiated by Carson: Yes Documenting Scribe: Shelley Domingo Provider For Whom Carson is Documenting (Include Credential): Dr. Peewee Sanz MD Scribe Attestation: I, Shelley Domingo, scribed for Dr. Peewee Sanz MD on 06/26/19 at 1510. Scribe Documentation Reviewed: Yes Provider Attestation: The documentation as recorded by the Shelley prado accurately reflects the service I personally performed and the decisions made by me, Dr. Peewee Sanz MD Status of Scribe Document: Viewed
[2019-06-26 11:52] LABS: Hematocrit 27 % (42-52); Hemoglobin 9.1 g/dL (14.0-18.0); Mean Corpuscular HGB Conc 34 g/dL (31-36); Mean Corpuscular Hemoglobin 34 pg (27-31); Mean Corpuscular Volume 99 fL (80-94); Mean Platelet Volume 8.3 fL (7.4-10.4); Nucleated Red Blood Cells % 0.1; Platelet Count 156 10^3/uL (150-450); Red Blood Count 2.69 10^6 /uL (4.18-5.48); Red Cell Distribution Width 18 % (10-15)
[2019-06-26 12:02] LABS: Albumin 3.7 g/dL (3.2-5.2); Albumin/Globulin Ratio 0.9 (1-3); BUN/Creatinine Ratio 17.8 (8-20); EGFR African American 40.9 (>60); EGFR Non-African American 33.8 (>60); Globulin 3.9 g/dL (2-4); Potassium 4.2 mmol/L (3.5-5.0); Total Bilirubin 0.5 mg/dL (0.2-1.0); Total Protein 7.6 g/dL (6.4-8.9)
[2019-06-26 12:06] LABS: Influenza A Molecular NEGATIVE (Negative); Influenza B Molecular NEGATIVE (Negative)
[2019-06-26] MEDS ORDERED: NS 0.9% 1000 ML** 1,000 ML IV ONE (12:11)
[2019-06-26 13:04] LABS: ABS Eosinophils 0.1 10^3/ul (0-0.6)
[2019-06-26 13:49] LABS: BUN/Creatinine Ratio 18.5 (8-20); Calcium 8.8 mg/dL (8.6-10.3); EGFR African American 41.4 (>60); EGFR Non-African American 34.2 (>60); Potassium 4.2 mmol/L (3.5-5.0)
[2019-06-26 15:42] VITALS: BP 100/72
== END 2019-06-26 15:41 | disposition home or self-care (01) ==
LOC: ED 11:14
DX: J06.9 Acute upper respiratory infection, unspecified (principal); C34.92 Malignant neoplasm of unspecified part of left bronchus or lung; I10 Essential (primary) hypertension; Z96.649 Presence of unspecified artificial hip joint; Z87.891 Personal history of nicotine dependence; Z88.8 Allergy status to other drugs, medicaments and biological substances
CPT/HCPCS: 36415; 71046; 80048; 80053; 83605; 85025; 85060; 96360; 96361; 99282

== ENCOUNTER 2019-12-26 20:04 | Inpatient (IN) ==
[2019-12-26] MEDS ORDERED: NS 0.9% 1000 ml BAG 1,000 ML IV ONE (20:25)
[2019-12-26 21:40] LABS: ALT 70 U/L (7-52); Albumin 3.2 g/dL (3.2-5.2); Albumin/Globulin Ratio 0.9 (1-3); Alkaline Phosphatase 42 U/L (34-104); BUN/Creatinine Ratio 18.2 (8-20); Blood Urea Nitrogen 38 mg/dL (6-24); C Reactive Protein 15.42 mg/L (<8.01); CO2 Carbon Dioxide 17 mmol/L (22-32); Calcium 8.5 mg/dL (8.6-10.3); Chloride 109 mmol/L (101-111); EGFR African American 38.2 (>60); EGFR Non-African American 31.6 (>60); Globulin 3.5 g/dL (2-4); Glucose 107 mg/dL (70-100); Sodium 136 mmol/L (135-145); Total Protein 6.7 g/dL (6.4-8.9)
[2019-12-26 21:41] LABS: Troponin I 0.01 ng/mL (<0.03)
[2019-12-26 21:44] LABS: ABS Lymphocytes 0.4 10^3/ul (1.0-4.8); ABS Monocytes 0.5 10^3/ul (0-0.8); Eosinophil % 0.2 %; Hematocrit 20 % (42-52); Hemoglobin 6.7 g/dL (14.0-18.0); Lymphocyte % 32.3 %; Mean Corpuscular HGB Conc 34 g/dL (31-36); Mean Corpuscular Hemoglobin 36 pg (27-31); Mean Corpuscular Volume 108 fL (80-94); Mean Platelet Volume 9.7 fL (7.4-10.4); Nucleated Red Blood Cells % 0.3; Platelet Count 79 10^3/uL (150-450); Red Blood Count 1.83 10^6 /uL (4.18-5.48); Red Cell Distribution Width 17 % (10-15); White Blood Count 1.2 10^3/uL (3.5-10.8)
[2019-12-26 21:55] LABS: Anion Gap 10 mmol/L (2-11)
[2019-12-26 22:05] LABS: Alcohol, S 19 mg/dL (<10)
[2019-12-26 22:20] LABS: TSH (Thyroid Stimulating Horm) 1.56 mcIU/mL (0.34-5.60)
[2019-12-26 22:39] LABS: Activated Partial Thrombo Time 28.7 seconds (26.0-38.0); INR 1.05 (0.82-1.09)
[2019-12-26 22:43] LABS: Magnesium 1.8 mg/dL (1.9-2.7); Potassium Redraw 4.5 mmol/L (3.5-5.0)
[2019-12-26] MEDS ORDERED: Ondansetron 4 mg VIAL 2 MG/ML 2 ml VIAL IV PRN (23:12)
[2019-12-26] MEDS ORDERED: Magnesium Sulfate IV 1GM/100ML 1 GM/100 ML BAG IV ONE (23:19)
[2019-12-26] MEDS ORDERED: Iodixanol (CONTRAST) 320 MG/ML 100 ML SDV IV ONE (23:21)
[2019-12-26] MEDS ORDERED: Lactated Ringers 1000 ml BAG 1,000 ML IV SCH (23:45)
[2019-12-27 01:20] LABS: Microcytosis 1+
[2019-12-27] MEDS: Enoxaparin 40 MG/0.4 ML SYR(*) SUBCUT SCH ×2 (01:39→23:34)
[2019-12-27 05:56] LABS: BUN/Creatinine Ratio 18.2 (8-20); Calcium 8.1 mg/dL (8.6-10.3); EGFR African American 40.6 (>60); EGFR Non-African American 33.6 (>60); Potassium 4.2 mmol/L (3.5-5.0)
[2019-12-27 05:59] LABS: Hematocrit 20 % (42-52); Hemoglobin 6.9 g/dL (14.0-18.0); Mean Corpuscular HGB Conc 34 g/dL (31-36); Mean Corpuscular Hemoglobin 36 pg (27-31); Mean Corpuscular Volume 105 fL (80-94); Mean Platelet Volume 8.9 fL (7.4-10.4); Platelet Count 81 10^3/uL (150-450); Red Cell Distribution Width 17 % (10-15); White Blood Count 1.9 10^3/uL (3.5-10.8)
[2019-12-27 07:09] LABS: Urine Appearance Clear; Urine Bilirubin Negative (Negative); Urine Blood Negative (Negative); Urine Color Yellow; Urine Glucose Negative (Negative); Urine Ketones Negative (Negative); Urine Nitrite Negative (Negative); Urine Protein Negative (Negative); Urine Specific Gravity 1.024 (1.010-1.030); Urine Urobilinogen Negative (Negative)
[2019-12-27 08:45] LABS: ABS Monocytes 0.6 10^3/ul (0-0.8); Eosinophil % 0.2 %; Lymphocyte % 50.9 %; Nucleated Red Blood Cells % 0.2
[2019-12-27 09:56] LABS: LDH 186 U/L (140-271)
[2019-12-27 10:16] LABS: Corrected Retic Count 0.1 % (0.5-1.5); Hematocrit for Retic CNT 22 % (42-52); RBC Retic Count 2.14 10^6/uL (4.18-5.48)
[2019-12-28 06:32] LABS: Calcium 8.2 mg/dL (8.6-10.3); EGFR African American 60.6 (>60); EGFR Non-African American 50.1 (>60); Potassium 4.1 mmol/L (3.5-5.0)
[2019-12-28 06:54] LABS: Hematocrit 23 % (42-52); Hemoglobin 8.5 g/dL (14.0-18.0); Mean Corpuscular HGB Conc 36 g/dL (31-36); Mean Corpuscular Hemoglobin 37 pg (27-31); Mean Corpuscular Volume 101 fL (80-94); Mean Platelet Volume 9.3 fL (7.4-10.4); Platelet Count 67 10^3/uL (150-450); Red Blood Count 2.31 10^6 /uL (4.18-5.48); Red Cell Distribution Width 19 % (10-15); White Blood Count 2.1 10^3/uL (3.5-10.8)
[2019-12-28 07:44] LABS: Albumin 2.8 g/dL (3.2-5.2); Albumin/Globulin Ratio 0.9 (1-3); Indirect Bilirubin 0.5 mg/dL (0.3-1.0); Total Bilirubin 0.7 mg/dL (0.2-1.0); Total Protein 5.8 g/dL (6.4-8.9)
[2019-12-28 07:57] LABS: ABS Lymphocytes 1.2 10^3/ul (1.0-4.8); ABS Monocytes 0.6 10^3/ul (0-0.8); Eosinophil % 2.1 %; Lymphocyte % 56.3 %; Nucleated Red Blood Cells % 0.1
[2019-12-28 08:31] VITALS: BP 149/82
== END 2019-12-28 11:35 | disposition home or self-care (01) | DRG 809 ==
LOC: MEDTELE 20:04 → ED 20:04 → OBSVTOIN 23:50 → MEDTELE 12-27 01:08
PROVIDERS: ADMIT Hospitalist; ATTEND Internal Medicine

== ENCOUNTER 2020-02-04 15:42 | Inpatient (IN) ==
[2020-02-04] MEDS ORDERED: Furosemide 100 mg/10 ml IV VIAL IV ONE (16:22)
[2020-02-04 18:22] LABS: Hematocrit 20 % (42-52); Hemoglobin 6.7 g/dL (14.0-18.0); Mean Corpuscular HGB Conc 34 g/dL (31-36); Mean Corpuscular Hemoglobin 37 pg (27-31); Mean Corpuscular Volume 109 fL (80-94); Mean Platelet Volume 9.5 fL (7.4-10.4); Platelet Count 98 10^3/uL (150-450); Red Blood Count 1.81 10^6 /uL (4.18-5.48); Red Cell Distribution Width 21 % (10-15); White Blood Count 1.9 10^3/uL (3.5-10.8)
[2020-02-04 18:24] LABS: ABS Lymphocytes 0.6 10^3/ul (1.0-4.8); ABS Neutrophils 1.2 10^3/ul (1.5-7.7); Eosinophil % 0.4 %; Lymphocyte % 32.8 %
[2020-02-04 18:43] LABS: Albumin 2.9 g/dL (3.2-5.2); Albumin/Globulin Ratio 0.9 (1-3); BUN/Creatinine Ratio 17.3 (8-20); C Reactive Protein 59.7 mg/L (<8.01); Calcium 8.5 mg/dL (8.6-10.3); EGFR African American 67.8 (>60); EGFR Non-African American 56.1 (>60); Globulin 3.4 g/dL (2-4); Potassium 4.4 mmol/L (3.5-5.0); Total Bilirubin 0.9 mg/dL (0.2-1.0); Total Protein 6.3 g/dL (6.4-8.9)
[2020-02-04] MEDS ORDERED: Labetalol IV 5 MG/ML 20 ml VIAL IV PUSH ONE (18:44)
[2020-02-04 18:45] LABS: Troponin I 0.01 ng/mL (<0.03)
[2020-02-04] MEDS ORDERED: cefTRIAXone 1 gm/50 mL NS BAG 1 GM/50 ML BAG IV ONE (18:45)
[2020-02-04 18:48] LABS: CKMB ng/mL 0.5 ng/mL (0.6-6.3)
[2020-02-04 21:05] LABS: Magnesium 1.9 mg/dL (1.9-2.7)
[2020-02-05 01:25] LABS: Urine Appearance Cloudy; Urine Bilirubin Negative (Negative); Urine Blood Negative (Negative); Urine Color Yellow; Urine Glucose Negative (Negative); Urine Ketones Negative (Negative); Urine Nitrite Positive (Negative); Urine Protein Negative (Negative); Urine Specific Gravity 1.008 (1.010-1.030); Urine Urobilinogen Negative (Negative)
[2020-02-05 01:30] LABS: Urine Bacteria 1+ (Absent); Urine Red Blood Cell 2+(6-10/hpf) (Absent); Urine White Blood Cell 3+(>20/hpf) (Absent)
[2020-02-05] MEDS: Heparin 5000 UNITS/ML 1 mL VIAL SUBCUT SCH ×2 (01:30→08:23)
[2020-02-05] MEDS ORDERED: Azithromycin 500 mg/250 ml NS 500 MG/250 ML BAG IVPB SCH ×2 (03:00→06:00)
[2020-02-05] MEDS ORDERED: Vancomycin 1,000 MG in NS 0.9% 250 ml 250 ML IVPB ONE (06:40)
[2020-02-05] MEDS ORDERED: Vancomycin per Pharmacy 1 EA NOTE FOLLOW UP SCH (07:00)
[2020-02-05] MEDS: Potassium Chlor 10 meq TAB PO SCH (08:21)
[2020-02-05 08:23] LABS: ABS Lymphocytes 0.9 10^3/ul (1.0-4.8); ABS Monocytes 0.1 10^3/ul (0-0.8); ABS Neutrophils 0.6 10^3/ul (1.5-7.7); Eosinophil % 0.5 %; Hematocrit 19 % (42-52); Hemoglobin 6.6 g/dL (14.0-18.0); Mean Corpuscular HGB Conc 34 g/dL (31-36); Mean Corpuscular Hemoglobin 36 pg (27-31); Mean Corpuscular Volume 104 fL (80-94); Mean Platelet Volume 10.1 fL (7.4-10.4); Nucleated Red Blood Cells % 0.1; Platelet Count 71 10^3/uL (150-450); Red Blood Count 1.85 10^6 /uL (4.18-5.48); Red Cell Distribution Width 22 % (10-15); White Blood Count 1.6 10^3/uL (3.5-10.8)
[2020-02-05 08:31] LABS: ALT 64 U/L (7-52); AST 160 U/L (13-39); Albumin 2.6 g/dL (3.2-5.2); Albumin/Globulin Ratio 0.9 (1-3); Alkaline Phosphatase 43 U/L (34-104); Anion Gap 5 mmol/L (2-11); BUN/Creatinine Ratio 17.9 (8-20); Blood Urea Nitrogen 24 mg/dL (6-24); CO2 Carbon Dioxide 27 mmol/L (22-32); Calcium 7.9 mg/dL (8.6-10.3); Chloride 104 mmol/L (101-111); EGFR African American 63.8 (>60); EGFR Non-African American 52.7 (>60); Glucose 102 mg/dL (70-100); Sodium 136 mmol/L (135-145); Total Protein 5.6 g/dL (6.4-8.9)
[2020-02-05] MEDS ORDERED: Furosemide 40 mg/4 ml IV VIAL IV SCH (09:00)
[2020-02-05] MEDS: Cefepime 1 GM in Dextrose 1 GM/50 ML BAG IV SCH ×2 (09:06→18:25)
[2020-02-05 09:22] LABS: TSH Ultra Thyroid Stim Horm 1.01 mcIU/mL (0.34-5.60)
[2020-02-05 10:51] LABS: Hematocrit for Retic CNT 20 % (42-52); RBC Retic Count 1.87 10^6/uL (4.18-5.48)
[2020-02-05 10:54] LABS: Corrected Retic Count 0.1 % (0.5-1.5); Immature Retic Fraction 0.14
[2020-02-05 11:04] LABS: % Iron Saturation 98 % (15-55); Iron 209 ug/dL (50-212); LDH 252 U/L (140-271); Total Iron Binding Capacity 214 mcg/dL (250-450); Transferrin 153 mg/dL (203-362); Unsaturated Iron Binding 5 ug/dL
[2020-02-05 11:27] LABS: Ferritin > 1500.0 ng/mL (24-336)
[2020-02-05 11:30] LABS: Folate 18.82 ng/mL (>3.99)
[2020-02-05 11:31] LABS: Vitamin B12 729 pg/mL (180-914)
[2020-02-05] MEDS: Vancomycin 2000 MG X 1 dose IVPB ONE ×2 (14:00→14:39)
[2020-02-05] MEDS ORDERED: Lorazepam PYXIS KEY PRN (14:56)
[2020-02-05] MEDS ORDERED: LORazepam 2 mg VIAL 1 ml IM ONE (14:56)
[2020-02-05] MEDS ORDERED: LORazepam 2 mg VIAL 1 ml ONE (15:00)
[2020-02-05] MEDS ORDERED: Furosemide 100 mg/10 ml IV VIAL IV SCH (17:00)
[2020-02-05] MEDS ORDERED: Vancomycin 2000 MG X 1 dose IVPB ONE ×2 (18:15→20:00)
[2020-02-05] MEDS: Furosemide 100 mg/10 ml IV VIAL IV SCH (19:47)
[2020-02-05] MEDS ORDERED: cefTRIAXone 1 gm/50 mL NS BAG 1 GM/50 ML BAG IVPB SCH (21:00)
[2020-02-06] MEDS ORDERED: Cefepime 2 GM in Dextrose 2 GM/50 ML BAG IV SCH (05:00)
[2020-02-06] MEDS: Vancomycin 1,000 MG in NS 0.9% 250 ml 250 ML IV SCH ×2 (05:35→14:10)
[2020-02-06] MEDS: Cefepime 2 GM in Dextrose 2 GM/50 ML BAG IV SCH ×2 (07:36→17:23)
[2020-02-06 08:09] LABS: ABS Lymphocytes 0.7 10^3/ul (1.0-4.8); ABS Monocytes 0.2 10^3/ul (0-0.8); ABS Neutrophils 0.5 10^3/ul (1.5-7.7); Eosinophil % 1.5 %; Hematocrit 20 % (42-52); Hemoglobin 7.1 g/dL (14.0-18.0); Lymphocyte % 48.8 %; Mean Corpuscular HGB Conc 35 g/dL (31-36); Mean Corpuscular Hemoglobin 36 pg (27-31); Mean Corpuscular Volume 103 fL (80-94); Mean Platelet Volume 8.9 fL (7.4-10.4); Nucleated Red Blood Cells % 0.3; Platelet Count 43 10^3/uL (150-450); Red Blood Count 1.94 10^6 /uL (4.18-5.48); Red Cell Distribution Width 23 % (10-15); White Blood Count 1.5 10^3/uL (3.5-10.8)
[2020-02-06] MEDS: Furosemide 100 mg/10 ml IV VIAL IV SCH ×2 (08:12→17:20)
[2020-02-06 08:23] LABS: Albumin 2.7 g/dL (3.2-5.2); Albumin/Globulin Ratio 0.8 (1-3); BUN/Creatinine Ratio 19.7 (8-20); Calcium 7.9 mg/dL (8.6-10.3); EGFR African American 62.2 (>60); EGFR Non-African American 51.4 (>60); Globulin 3.3 g/dL (2-4); Potassium 3.6 mmol/L (3.5-5.0); Total Bilirubin 1.5 mg/dL (0.2-1.0)
[2020-02-06] MEDS: Potassium Chlor 10 meq TAB PO SCH (09:21)
[2020-02-06 09:32] LABS: INR 1.11 (0.82-1.09)
[2020-02-06] MEDS ORDERED: Potassium Chlor 10 meq TAB PO ONE (21:14)
[2020-02-06 21:49] LABS: Hematocrit 21 % (42-52); Hemoglobin 7.3 g/dL (14.0-18.0)
[2020-02-06] MEDS ORDERED: Magnesium Sulfate 2 gm BAG 2 GM/50 ML BAG IVPB ONE (23:15)
[2020-02-07] MEDS ORDERED: Vancomycin Trough Check NOTE FOLLOW UP ONE (06:00)
[2020-02-07] MEDS: Cefepime 2 GM in Dextrose 2 GM/50 ML BAG IV SCH ×2 (06:04→16:51)
[2020-02-07 06:45] LABS: Albumin 2.6 g/dL (3.2-5.2); Albumin/Globulin Ratio 0.9 (1-3); BUN/Creatinine Ratio 19.9 (8-20); Calcium 7.9 mg/dL (8.6-10.3); EGFR African American 62.7 (>60); EGFR Non-African American 51.8 (>60); Hematocrit 21 % (42-52); Hemoglobin 7.2 g/dL (14.0-18.0); Mean Corpuscular HGB Conc 35 g/dL (31-36); Mean Corpuscular Hemoglobin 37 pg (27-31); Mean Corpuscular Volume 105 fL (80-94); Mean Platelet Volume 8.5 fL (7.4-10.4); Platelet Count 30 10^3/uL (150-450); Potassium 3.8 mmol/L (3.5-5.0); Red Blood Count 1.95 10^6 /uL (4.18-5.48); Red Cell Distribution Width 22 % (10-15); Total Bilirubin 0.7 mg/dL (0.2-1.0); Total Protein 5.6 g/dL (6.4-8.9); White Blood Count 2.3 10^3/uL (3.5-10.8)
[2020-02-07] MEDS: Furosemide 100 mg/10 ml IV VIAL IV SCH ×2 (07:00→16:47)
[2020-02-07] MEDS: Potassium Chlor 10 meq TAB PO SCH (08:04)
[2020-02-07 08:37] LABS: ABS Lymphocytes 0.8 10^3/ul (1.0-4.8); ABS Monocytes 0.5 10^3/ul (0-0.8); ABS Neutrophils 0.9 10^3/ul (1.5-7.7); Nucleated Red Blood Cells % 0.3
[2020-02-08] MEDS: Cefepime 2 GM in Dextrose 2 GM/50 ML BAG IV SCH ×2 (05:54→17:49)
[2020-02-08 06:38] LABS: Albumin 2.4 g/dL (3.2-5.2); Albumin/Globulin Ratio 0.8 (1-3); BUN/Creatinine Ratio 20.7 (8-20); Calcium 7.7 mg/dL (8.6-10.3); EGFR African American 63.2 (>60); EGFR Non-African American 52.2 (>60); Globulin 2.9 g/dL (2-4); Magnesium 1.9 mg/dL (1.9-2.7); Potassium 3.7 mmol/L (3.5-5.0); Total Bilirubin 0.7 mg/dL (0.2-1.0); Total Protein 5.3 g/dL (6.4-8.9)
[2020-02-08 06:45] LABS: Hematocrit 19 % (42-52); Hemoglobin 6.6 g/dL (14.0-18.0); Mean Corpuscular HGB Conc 35 g/dL (31-36); Mean Corpuscular Hemoglobin 36 pg (27-31); Mean Corpuscular Volume 104 fL (80-94); Mean Platelet Volume 9.1 fL (7.4-10.4); Platelet Count 24 10^3/uL (150-450); Red Blood Count 1.82 10^6 /uL (4.18-5.48); Red Cell Distribution Width 22 % (10-15); White Blood Count 2.7 10^3/uL (3.5-10.8)
[2020-02-08 07:36] LABS: ABS Neutrophils 0.5 10^3/ul (1.5-7.7); Microcytosis 2+
[2020-02-08] MEDS: Furosemide 100 mg/10 ml IV VIAL IV SCH ×2 (08:12→17:48)
[2020-02-08] MEDS: Potassium Chlor 10 meq TAB PO SCH (08:14)
[2020-02-09 04:53] LABS: Albumin 2.4 g/dL (3.2-5.2); Albumin/Globulin Ratio 0.8 (1-3); BUN/Creatinine Ratio 19.7 (8-20); Calcium 7.7 mg/dL (8.6-10.3); EGFR African American 55.1 (>60); EGFR Non-African American 45.6 (>60); Globulin 3.2 g/dL (2-4); Hematocrit 21 % (42-52); Hemoglobin 7.3 g/dL (14.0-18.0); Mean Corpuscular HGB Conc 35 g/dL (31-36); Mean Corpuscular Hemoglobin 36 pg (27-31); Mean Corpuscular Volume 103 fL (80-94); Mean Platelet Volume 9.7 fL (7.4-10.4); Platelet Count 24 10^3/uL (150-450); Potassium 3.7 mmol/L (3.5-5.0); Red Blood Count 2.04 10^6 /uL (4.18-5.48); Red Cell Distribution Width 21 % (10-15); Total Bilirubin 0.8 mg/dL (0.2-1.0); Total Protein 5.6 g/dL (6.4-8.9); White Blood Count 3.1 10^3/uL (3.5-10.8)
[2020-02-09] MEDS: Cefepime 2 GM in Dextrose 2 GM/50 ML BAG IV SCH ×2 (06:01→17:25)
[2020-02-09 06:15] LABS: ABS Eosinophils 0.1 10^3/ul (0-0.6); ABS Lymphocytes 1.1 10^3/ul (1.0-4.8); ABS Monocytes 1.3 10^3/ul (0-0.8); ABS Neutrophils 0.7 10^3/ul (1.5-7.7); Eosinophil % 1.7 %; Lymphocyte % 35.2 %; Nucleated Red Blood Cells % 0.3
[2020-02-09] MEDS: Furosemide 100 mg/10 ml IV VIAL IV SCH ×2 (07:44→17:24)
[2020-02-09] MEDS: Potassium Chlor 10 meq TAB PO SCH (07:45)
[2020-02-10] MEDS: Cefepime 2 GM in Dextrose 2 GM/50 ML BAG IV SCH ×2 (05:48→16:51)
[2020-02-10 06:05] LABS: Hematocrit 21 % (42-52); Hemoglobin 7.3 g/dL (14.0-18.0); Mean Corpuscular HGB Conc 35 g/dL (31-36); Mean Corpuscular Hemoglobin 36 pg (27-31); Mean Corpuscular Volume 103 fL (80-94); Mean Platelet Volume 9.4 fL (7.4-10.4); Platelet Count 28 10^3/uL (150-450); Red Blood Count 2.05 10^6 /uL (4.18-5.48); Red Cell Distribution Width 21 % (10-15); White Blood Count 3.2 10^3/uL (3.5-10.8)
[2020-02-10 06:17] LABS: BUN/Creatinine Ratio 21.5 (8-20); EGFR African American 52.7 (>60); EGFR Non-African American 43.6 (>60); Potassium 3.7 mmol/L (3.5-5.0)
[2020-02-10 07:04] LABS: ABS Eosinophils 0.1 10^3/ul (0-0.6); ABS Monocytes 1.6 10^3/ul (0-0.8); ABS Neutrophils 0.5 10^3/ul (1.5-7.7); Eosinophil % 1.6 %; Lymphocyte % 31.6 %; Nucleated Red Blood Cells % 0.1
[2020-02-10] MEDS: Furosemide 100 mg/10 ml IV VIAL IV SCH ×2 (07:44→16:51)
[2020-02-10] MEDS: Potassium Chlor 10 meq TAB PO SCH (07:45)
[2020-02-11] MEDS: Cefepime 2 GM in Dextrose 2 GM/50 ML BAG IV SCH ×2 (06:25→17:32)
[2020-02-11 07:02] LABS: Albumin 2.5 g/dL (3.2-5.2); Albumin/Globulin Ratio 0.8 (1-3); BUN/Creatinine Ratio 20.2 (8-20); Calcium 7.9 mg/dL (8.6-10.3); EGFR African American 50.9 (>60); Globulin 3.1 g/dL (2-4); Potassium 3.7 mmol/L (3.5-5.0); Total Bilirubin 0.5 mg/dL (0.2-1.0); Total Protein 5.6 g/dL (6.4-8.9)
[2020-02-11] MEDS: Furosemide 100 mg/10 ml IV VIAL IV SCH (08:02)
[2020-02-11] MEDS: Potassium Chlor 10 meq TAB PO SCH (08:04)
[2020-02-11 08:09] LABS: Hematocrit 22 % (42-52); Hemoglobin 7.6 g/dL (14.0-18.0); Mean Corpuscular HGB Conc 35 g/dL (31-36); Mean Corpuscular Hemoglobin 36 pg (27-31); Mean Corpuscular Volume 103 fL (80-94); Mean Platelet Volume 9.3 fL (7.4-10.4); Platelet Count 36 10^3/uL (150-450); Red Blood Count 2.13 10^6 /uL (4.18-5.48); Red Cell Distribution Width 20 % (10-15); White Blood Count 3.9 10^3/uL (3.5-10.8)
[2020-02-11 09:16] LABS: ABS Eosinophils 0.1 10^3/ul (0-0.6); ABS Monocytes 1.9 10^3/ul (0-0.8); Eosinophil % 1.8 %; Lymphocyte % 26.4 %; Nucleated Red Blood Cells % 0.2
[2020-02-11 09:19] LABS: ABS Neutrophils 0.9 10^3/ul (1.5-7.7)
[2020-02-12] MEDS: Cefepime 2 GM in Dextrose 2 GM/50 ML BAG IV SCH (05:31)
[2020-02-12 05:43] LABS: Hematocrit 22 % (42-52); Hemoglobin 7.6 g/dL (14.0-18.0); Mean Corpuscular HGB Conc 34 g/dL (31-36); Mean Corpuscular Hemoglobin 36 pg (27-31); Mean Corpuscular Volume 104 fL (80-94); Mean Platelet Volume 10.3 fL (7.4-10.4); Platelet Count 59 10^3/uL (150-450); Red Blood Count 2.13 10^6 /uL (4.18-5.48); Red Cell Distribution Width 21 % (10-15); White Blood Count 4.6 10^3/uL (3.5-10.8)
[2020-02-12 06:21] LABS: Albumin 2.5 g/dL (3.2-5.2); Calcium 7.9 mg/dL (8.6-10.3); Magnesium 1.9 mg/dL (1.9-2.7); Total Bilirubin 0.5 mg/dL (0.2-1.0)
[2020-02-12 06:27] LABS: Albumin/Globulin Ratio 0.8 (1-3); BUN/Creatinine Ratio 20.5 (8-20); EGFR African American 53.5 (>60); EGFR Non-African American 44.2 (>60); Globulin 3.1 g/dL (2-4); Total Protein 5.6 g/dL (6.4-8.9)
[2020-02-12 06:42] LABS: ABS Eosinophils 0.1 10^3/ul (0-0.6); ABS Lymphocytes 1.3 10^3/ul (1.0-4.8); ABS Neutrophils 1.2 10^3/ul (1.5-7.7); Eosinophil % 2.2 %; Lymphocyte % 27.6 %; Nucleated Red Blood Cells % 0.1
[2020-02-12] MEDS: Potassium Chlor 10 meq TAB PO SCH (09:56)
[2020-02-12 11:29] VITALS: BP 136/53
== END 2020-02-12 16:58 | disposition home or self-care (01) | DRG 808 ==
LOC: ED 15:42 → MEDTELE 20:22
PROVIDERS: ADMIT Student in an Organized Health Care Education/Training Program; ATTEND Internal Medicine Hematology & Oncology

== ENCOUNTER 2020-03-30 11:18 | Observation (INO) ==
[2020-03-30 12:17] LABS: ABS Eosinophils 0.1 10^3/ul (0-0.6); ABS Lymphocytes 1.6 10^3/ul (1.0-4.8); ABS Monocytes 0.9 10^3/ul (0-0.8); ABS Neutrophils 3.1 10^3/ul (1.5-7.7); Eosinophil % 1.7 %; Hematocrit 31 % (42-52); Hemoglobin 10.2 g/dL (14.0-18.0); Lymphocyte % 27.8 %; Mean Corpuscular HGB Conc 33 g/dL (31-36); Mean Corpuscular Hemoglobin 34 pg (27-31); Mean Corpuscular Volume 103 fL (80-94); Mean Platelet Volume 8.3 fL (7.4-10.4); Platelet Count 237 10^3/uL (150-450); Red Blood Count 3.03 10^6 /uL (4.18-5.48); Red Cell Distribution Width 16 % (10-15); White Blood Count 5.7 10^3/uL (3.5-10.8)
[2020-03-30 12:33] LABS: ALT 18 U/L (7-52); Albumin 3.1 g/dL (3.2-5.2); Albumin/Globulin Ratio 0.8 (1-3); Alkaline Phosphatase 55 U/L (34-104); BUN/Creatinine Ratio 11.8 (8-20); Blood Urea Nitrogen 18 mg/dL (6-24); C Reactive Protein 21.86 mg/L (<8.01); CO2 Carbon Dioxide 29 mmol/L (22-32); Calcium 8.8 mg/dL (8.6-10.3); Chloride 104 mmol/L (101-111); EGFR Non-African American 45.4 (>60); Globulin 3.8 g/dL (2-4); Glucose 111 mg/dL (70-100); Magnesium 1.8 mg/dL (1.9-2.7); Sodium 138 mmol/L (135-145); Total Protein 6.9 g/dL (6.4-8.9)
[2020-03-30 13:01] LABS: Troponin I 0.03 ng/mL (<0.03)
[2020-03-30 13:02] LABS: Anion Gap 5 mmol/L (2-11)
[2020-03-30 14:09] LABS: Urine Appearance Clear; Urine Bilirubin Negative (Negative); Urine Blood Negative (Negative); Urine Color Yellow; Urine Glucose Negative (Negative); Urine Ketones Negative (Negative); Urine Nitrite Negative (Negative); Urine Protein Negative (Negative); Urine Specific Gravity 1.009 (1.010-1.030); Urine Urobilinogen Negative (Negative)
[2020-03-30] MEDS ORDERED: Enoxaparin 40 MG/0.4 ML SYR SUBCUT SCH (17:00)
[2020-03-30] MEDS ORDERED: NS 0.9% 1000 ml BAG 1,000 ML IV SCH (17:00)
[2020-03-30] MEDS ORDERED: Gadoteridol (CONTRAST) 279.3 MG/ML 10 ML IV ONE (19:35)
[2020-03-30 23:12] LABS: AST Redraw 41 U/L (13-39); Potassium Redraw 3.5 mmol/L (3.5-5.0)
[2020-03-31] MEDS ORDERED: Potassium Chlor 10 meq TAB PO SCH (09:00)
[2020-03-31 09:39] LABS: % Iron Saturation 41 % (15-55); Iron 108 ug/dL (50-212); Total Iron Binding Capacity 266 mcg/dL (250-450); Transferrin 190 mg/dL (203-362); Unsaturated Iron Binding < 251 ug/dL
[2020-03-31 10:05] LABS: Vitamin B12 416 pg/mL (180-914)
[2020-03-31 11:43] VITALS: BP 142/90
== END 2020-03-31 13:00 | disposition home or self-care (01) ==
LOC: ED 11:18 → MEDTELE 17:13 → INTOOBSV 17:13 → MEDTELE 18:26
PROVIDERS: ADMIT Nurse Practitioner Family; ATTEND Internal Medicine Hematology & Oncology

== ENCOUNTER 2022-03-09 11:23 | Observation (INO) ==
[2022-03-09 11:52] LABS: ABS Lymphocytes 1.4 10^3/ul (1.0-4.8); ABS Monocytes 1.3 10^3/ul (0-0.8); ABS Neutrophils 5.3 10^3/ul (1.5-7.7); Eosinophil % 0.5 %; Hematocrit 47 % (42-52); Hemoglobin 15.2 g/dL (14.0-18.0); Lymphocyte % 17.2 %; Mean Corpuscular HGB Conc 33 g/dL (31-36); Mean Corpuscular Hemoglobin 31 pg (27-31); Mean Corpuscular Volume 95 fL (80-94); Mean Platelet Volume 9.5 fL (7.4-10.4); Platelet Count 211 10^3/uL (150-450); Red Blood Count 4.96 10^6 /uL (4.18-5.48); Red Cell Distribution Width 14 % (10-15)
[2022-03-09] MEDS ORDERED: NS 0.9% 1000 ml BAG 1,000 ML IV ONE (12:00)
[2022-03-09 12:07] LABS: INR 1.03 (0.89-1.11)
[2022-03-09 12:39] LABS: ALT 72 U/L (7-52); Acetaminophen < 15 mcg/mL; Albumin 3.8 g/dL (3.2-5.2); Albumin/Globulin Ratio 1.1 (1-3); Alcohol, S < 13 mg/dL (<13); Alkaline Phosphatase 64 U/L (35-149); Blood Urea Nitrogen 40 mg/dL (6-24); C Reactive Protein 24.55 mg/L (<8.01); CO2 Carbon Dioxide 24 mmol/L (22-32); Calcium 9.4 mg/dL (8.6-10.3); Chloride 104 mmol/L (101-111); Creatine Kinase 839 U/L (10-223); Globulin 3.4 g/dL (2-4); Glucose 93 mg/dL (70-100); Salicylate < 2.50 mg/dL (<30); Sodium 142 mmol/L (135-145); Total Protein 7.2 g/dL (6.4-8.9); eGFR CKD-EPI 50.1 (>60)
[2022-03-09 12:44] LABS: Anion Gap 14 mmol/L (2-11)
[2022-03-09 15:45] LABS: Urine Appearance Clear; Urine Bilirubin Negative (Negative); Urine Color Yellow; Urine Glucose Negative (Negative); Urine Ketones Trace (Negative); Urine Nitrite Negative (Negative); Urine Protein 1+ (30 mg/dL) (Negative); Urine Specific Gravity 1.025 (1.005-1.030); Urine Urobilinogen 0.2 (Negative) (Negative); Urine pH 5.5 (5.0-9.0)
[2022-03-09 16:03] LABS: Urine Bacteria Absent (Absent); Urine Red Blood Cell 2+(6-10/hpf) (Absent); Urine Squamous Epithelial Cell Present (Absent); Urine White Blood Cell 3+(>20/hpf) (Absent)
[2022-03-09 16:11] LABS: Urine Benzodiazepine Screen Presumptive Positive (None Detect); Urine Cannabinoids Screen Presumptive Positive (None Detect); Urine Opiates Screen None Detected (None Detect)
[2022-03-09 16:28] LABS: Magnesium 1.9 mg/dL (1.9-2.7); Potassium Redraw 4.2 mmol/L (3.5-5.0)
[2022-03-09] MEDS ORDERED: NS 0.9% 1000 ml BAG 1,000 ML IV SCH (17:00)
[2022-03-09] MEDS ORDERED: cefTRIAXone 1 gm/50 mL D5W 1 GM/50 ML BAG IV ONE (17:25)
[2022-03-09] MEDS: hydrALAZINE 20 mg/ml 1 ML Vial IV IV SLOW PU PRN (17:30)
[2022-03-09] MEDS: cefTRIAXone 1 gm/50 mL D5W 1 GM/50 ML BAG IV SCH (17:33)
[2022-03-09] MEDS: Enoxaparin 40 MG/0.4 ML SYR SUBCUT SCH (17:35)
[2022-03-10] MEDS: hydrALAZINE 20 mg/ml 1 ML Vial IV IV SLOW PU PRN ×2 (04:31→10:16)
[2022-03-10 06:55] LABS: ABS Lymphocytes 1.3 10^3/ul (1.0-4.8); ABS Monocytes 1.3 10^3/ul (0-0.8); ABS Neutrophils 3.9 10^3/ul (1.5-7.7); Eosinophil % 0.5 %; Hematocrit 43 % (42-52); Hemoglobin 14.5 g/dL (14.0-18.0); Mean Corpuscular HGB Conc 34 g/dL (31-36); Mean Corpuscular Hemoglobin 31 pg (27-31); Mean Corpuscular Volume 93 fL (80-94); Mean Platelet Volume 9.4 fL (7.4-10.4); Nucleated Red Blood Cells % 0.1; Platelet Count 197 10^3/uL (150-450); Red Blood Count 4.61 10^6 /uL (4.18-5.48); Red Cell Distribution Width 14 % (10-15); White Blood Count 6.7 10^3/uL (3.5-10.8)
[2022-03-10 07:11] LABS: INR 1.05 (0.89-1.11)
[2022-03-10 07:19] LABS: Calcium 9.1 mg/dL (8.6-10.3); Potassium 4.1 mmol/L (3.5-5.0)
[2022-03-10] MEDS: cefTRIAXone 1 gm/50 mL D5W 1 GM/50 ML BAG IV SCH (17:11)
[2022-03-10] MEDS: Enoxaparin 40 MG/0.4 ML SYR SUBCUT SCH (17:12)
[2022-03-11] MEDS: cefTRIAXone 1 gm/50 mL D5W 1 GM/50 ML BAG IV SCH (18:14)
[2022-03-11] MEDS: Enoxaparin 40 MG/0.4 ML SYR SUBCUT SCH (18:30)
[2022-03-11] MEDS: hydrALAZINE 20 mg/ml 1 ML Vial IV IV SLOW PU PRN (21:58)
[2022-03-12] MEDS: hydrALAZINE 20 mg/ml 1 ML Vial IV IV SLOW PU PRN (02:13)
[2022-03-12 08:11] VITALS: BP 149/83
[2022-03-13 17:54] LABS: Plasma Free Metanephrine 0.27 nmol/L (<0.50)
[2022-03-14 21:35] LABS: Urine Collection Duration 24 h; Urine Total Metanephrines 6861 mcg/24 h; Urine Volume 1050 mL
== END 2022-03-12 12:50 | disposition home or self-care (01) ==
LOC: ED 11:23 → EDHOLD 11:23 → SUATTDRO 16:57 → MEDTELE 20:30
PROVIDERS: ADMIT Hospitalist; ATTEND Internal Medicine

== ENCOUNTER 2022-12-09 18:18 | Inpatient (IN) ==
[2022-12-09] MEDS ORDERED: Cefepime 2 GM in Dextrose 2 GM/50 ML BAG IV ONE (18:50)
[2022-12-09] MEDS ORDERED: Lactated Ringers 1000 ml BAG 1,000 ML IV ONE (18:50)
[2022-12-09] MEDS ORDERED: Acetaminophen IV 1 GM/100ML 1,000 MG/100 ML BAG IV ONE (18:50)
[2022-12-09 19:15] LABS: Hematocrit 34.4 % (38-53); Mean Corpuscular Hemoglobin 28.7 pg (27-33); Mean Corpuscular Volume 89.6 fL (80-97); Mean Platelet Volume 9.5 fL (7.5-11.2); Platelet Count 207 10^3/uL (150-450); Red Blood Count 3.84 10^6/uL (4.06-5.63); Red Cell Distribution Width 15.1 % (12-17); White Blood Count 39.3 10^3/uL (3.6-10.2)
[2022-12-09 19:31] LABS: Albumin 2.9 g/dL (3.2-5.2); Albumin/Globulin Ratio 0.7 (1-3); C Reactive Protein 102.84 mg/L (<8.01); Calcium 9.2 mg/dL (8.6-10.3); Creatinine, Serum 1.71 mg/dL (0.67-1.17); Globulin 4.3 g/dL (2-4); Potassium 4.3 mmol/L (3.5-5.0); Total Bilirubin 1.8 mg/dL (0.2-1.0); Total Protein 7.2 g/dL (6.4-8.9); eGFR CKD-EPI 41.7 (>60)
[2022-12-09 19:35] LABS: ABS Basophils 0.1 10^3/uL (0.0-0.1); ABS Eosinophils 0.2 10^3/uL (0.0-0.5); ABS Lymphocytes 1.4 10^3/uL (1.0-4.8); ABS Monocytes 3.4 10^3/uL (0.0-1.1); ABS Neutrophils 34.2 10^3/uL (1.5-7.6); Eosinophil % 0.6 %; Lymphocyte % 3.6 %
[2022-12-09] MEDS ORDERED: Iodixanol (CONTRAST) 320 MG/ML 100 ML SDV IV ONE (19:45)
[2022-12-09] MEDS ORDERED: Vancomycin 1500 MG IV - x ONCE IVPB ONE (23:00)
[2022-12-09] MEDS ORDERED: metroNIDAZOLE IV 500 MG/100ML 500 MG/100 ML BAG IVPB SCH (23:00)
[2022-12-09] MEDS ORDERED: Vancomycin per Pharmacy 1 EA NOTE FOLLOW UP SCH (23:00)
[2022-12-09 23:32] LABS: Urine Appearance Cloudy; Urine Bilirubin Negative (Negative); Urine Blood Negative (Negative); Urine Color Amber; Urine Glucose Negative (Negative); Urine Ketones Negative (Negative); Urine Nitrite Negative (Negative); Urine Protein 1+(30 mg/dL) (Negative); Urine Specific Gravity 1.023 (1.002-1.030); Urine Urobilinogen Positive (Negative)
[2022-12-09 23:37] LABS: Urine Bacteria Absent (Absent); Urine Red Blood Cell Trace(0-2/hpf) (Absent); Urine Squamous Epithelial Cell Present (Absent); Urine White Blood Cell 3+(>20/hpf) (Absent)
[2022-12-09 23:47] LABS: Creatinine, Serum 1.52 mg/dL (0.67-1.17); eGFR CKD-EPI 48.1 (>60)
[2022-12-09 23:53] LABS: Urine Benzodiazepine Screen None Detected (None Detect); Urine Buprenorphine Screen None Detected (None Detect); Urine Cannabinoids Screen None Detected (None Detect); Urine Fentanyl Screen None Detected (None Detect); Urine Hydrocodone Screen Presumptive Positive (None Detect); Urine Opiates Screen Presumptive Positive (None Detect)
[2022-12-10 00:14] LABS: Activated Partial Thrombo Time 31.6 seconds (26.0-38.0); INR 1.42 (0.88-1.18)
[2022-12-10] MEDS: Heparin 5000 UNITS/ML 1 mL VIAL SUBCUT SCH ×3 (00:40→13:53)
[2022-12-10] MEDS: metroNIDAZOLE IV 500 MG/100ML 500 MG/100 ML BAG IVPB SCH ×3 (05:47→22:35)
[2022-12-10 07:03] LABS: Hematocrit 30.9 % (38-53); Hemoglobin 9.8 g/dL (13.2-16.3); Mean Corpuscular Hemoglobin 28.6 pg (27-33); Mean Corpuscular Hgb Conc 31.7 g/dL (31-36); Mean Corpuscular Volume 90.3 fL (80-97); Mean Platelet Volume 9.1 fL (7.5-11.2); Platelet Count 187 10^3/uL (150-450); Red Blood Count 3.42 10^6/uL (4.06-5.63); Red Cell Distribution Width 15.3 % (12-17); White Blood Count 46.5 10^3/uL (3.6-10.2)
[2022-12-10 07:20] LABS: Albumin 2.8 g/dL (3.2-5.2); Albumin/Globulin Ratio 0.7 (1-3); Calcium 8.8 mg/dL (8.6-10.3); Creatinine, Serum 1.52 mg/dL (0.67-1.17); Globulin 4.1 g/dL (2-4); Potassium 4.2 mmol/L (3.5-5.0); Total Bilirubin 1.5 mg/dL (0.2-1.0); Total Protein 6.9 g/dL (6.4-8.9); eGFR CKD-EPI 48.1 (>60)
[2022-12-10 07:50] LABS: ABS Basophils 0.1 10^3/uL (0.0-0.1); ABS Eosinophils 0.2 10^3/uL (0.0-0.5); ABS Lymphocytes 2.7 10^3/uL (1.0-4.8); ABS Monocytes 4.5 10^3/uL (0.0-1.1); ABS Nucleated RBC 0.01 10^3/ul; Eosinophil % 0.4 %; Lymphocyte % 5.9 %; Polychromasia 1+
[2022-12-10] MEDS: Cefepime 2 GM in Dextrose 2 GM/50 ML BAG IV SCH ×2 (07:57→22:00)
[2022-12-10] MEDS ORDERED: Cefepime 2 GM in Dextrose 2 GM/50 ML BAG IV SCH (09:00)
[2022-12-10] MEDS ORDERED: Sulfur Hexaflouride MICROSPHR 25 MG VIAL ONE (09:01)
[2022-12-10] MEDS ORDERED: Magnesium Sulfate 2 gm BAG 2 GM/50 ML BAG IVPB ONE (16:31)
[2022-12-10] MEDS: Metoprolol Tartrate 5 mg VIAL 5 ml VIAL (1 mg/ml) IV SCH ×3 (16:43→17:45)
[2022-12-10 16:51] LABS: Hematocrit 31.5 % (38-53); Hemoglobin 10.1 g/dL (13.2-16.3); Mean Corpuscular Hemoglobin 28.8 pg (27-33); Mean Corpuscular Hgb Conc 31.9 g/dL (31-36); Mean Corpuscular Volume 90.3 fL (80-97); Platelet Count 188 10^3/uL (150-450); Red Blood Count 3.49 10^6/uL (4.06-5.63); Red Cell Distribution Width 14.9 % (12-17); White Blood Count 47.1 10^3/uL (3.6-10.2)
[2022-12-10] MEDS ORDERED: Morphine 10 MG/ML VIAL (1 ml) IV ONE (17:00)
[2022-12-10 17:10] LABS: ABS Basophils 0.1 10^3/uL (0.0-0.1); ABS Eosinophils 0.2 10^3/uL (0.0-0.5); ABS Lymphocytes 2.5 10^3/uL (1.0-4.8); ABS Monocytes 4.3 10^3/uL (0.0-1.1); ABS Neutrophils 40.1 10^3/uL (1.5-7.6); Eosinophil % 0.5 %; Lymphocyte % 5.3 %
[2022-12-10 17:20] LABS: Urine Appearance Cloudy; Urine Bilirubin Negative (Negative); Urine Blood Negative (Negative); Urine Color Amber; Urine Glucose Negative (Negative); Urine Ketones Negative (Negative); Urine Nitrite Negative (Negative); Urine Protein 1+(30 mg/dL) (Negative); Urine Specific Gravity 1.032 (1.002-1.030); Urine Urobilinogen Positive (Negative)
[2022-12-10 17:23] LABS: Urine Bacteria Absent (Absent); Urine Red Blood Cell 1+(3-5/hpf) (Absent); Urine Squamous Epithelial Cell Present (Absent); Urine White Blood Cell 2+(11-20/hpf) (Absent)
[2022-12-10 17:53] LABS: Albumin 2.8 g/dL (3.2-5.2); Albumin/Globulin Ratio 0.7 (1-3); Calcium 9.1 mg/dL (8.6-10.3); Creatinine, Serum 1.51 mg/dL (0.67-1.17); Globulin 4.2 g/dL (2-4); Magnesium 1.8 mg/dL (1.9-2.7); Potassium 4.3 mmol/L (3.5-5.0); Total Bilirubin 1.5 mg/dL (0.2-1.0); eGFR CKD-EPI 48.5 (>60)
[2022-12-10 18:28] LABS: Hematocrit 30.2 % (38-53); Hemoglobin 9.6 g/dL (13.2-16.3); Mean Corpuscular Hemoglobin 28.8 pg (27-33); Mean Corpuscular Hgb Conc 31.9 g/dL (31-36); Mean Corpuscular Volume 90.2 fL (80-97); Mean Platelet Volume 8.7 fL (7.5-11.2); Platelet Count 172 10^3/uL (150-450); Red Blood Count 3.34 10^6/uL (4.06-5.63); Red Cell Distribution Width 15.4 % (12-17); White Blood Count 41.6 10^3/uL (3.6-10.2)
[2022-12-10 18:50] LABS: Creatinine, Serum 1.59 mg/dL (0.67-1.17); eGFR CKD-EPI 45.6 (>60)
[2022-12-10 18:59] LABS: ABS Eosinophils 0.1 10^3/uL (0.0-0.5); ABS Lymphocytes 1.7 10^3/uL (1.0-4.8); ABS Monocytes 3.5 10^3/uL (0.0-1.1); ABS Neutrophils 36.2 10^3/uL (1.5-7.6); ABS Nucleated RBC 0.04 10^3/ul; Eosinophil % 0.3 %; Lymphocyte % 4.2 %; Nucleated Red Blood Cells % 0.1 /100 WBC (0.0-0.4)
[2022-12-10] MEDS: Heparin 5000 UNITS/ML 1 mL VIAL IV SCH (19:53)
[2022-12-10] MEDS: Heparin DRIP 25,000 UNITS BAG 25,000 UNITS/500 ML BAG IV SCH (19:55)
[2022-12-11] MEDS: Vancomycin 1,250 MG in NS 0.9% 250 ml 250 ML IVPB SCH ×2 (00:17→22:12)
[2022-12-11] MEDS: metroNIDAZOLE IV 500 MG/100ML 500 MG/100 ML BAG IVPB SCH ×2 (05:49→14:11)
[2022-12-11] MEDS: Cefepime 2 GM in Dextrose 2 GM/50 ML BAG IV SCH ×2 (09:03→20:19)
[2022-12-11] MEDS: Lactulose 30 ml UDC PO SCH ×3 (09:04→22:41)
[2022-12-11 09:21] LABS: Hematocrit 28.6 % (38-53); Hemoglobin 9.2 g/dL (13.2-16.3); Mean Corpuscular Hemoglobin 28.9 pg (27-33); Mean Corpuscular Hgb Conc 32.1 g/dL (31-36); Mean Corpuscular Volume 90.1 fL (80-97); Platelet Count 176 10^3/uL (150-450); Red Blood Count 3.18 10^6/uL (4.06-5.63); Red Cell Distribution Width 15.2 % (12-17); White Blood Count 41.4 10^3/uL (3.6-10.2)
[2022-12-11 09:28] LABS: ABS Basophils 0.1 10^3/uL (0.0-0.1); ABS Eosinophils 0.1 10^3/uL (0.0-0.5); ABS Lymphocytes 2.1 10^3/uL (1.0-4.8); ABS Neutrophils 35.2 10^3/uL (1.5-7.6); Eosinophil % 0.2 %
[2022-12-11] MEDS ORDERED: Gadoteridol (CONTRAST) 279.3 MG/ML 10 ML IV ONE (12:03)
[2022-12-11] MEDS: Heparin 5000 UNITS/ML 1 mL VIAL IV SCH ×2 (14:12→22:41)
[2022-12-11] MEDS: Heparin DRIP 25,000 UNITS BAG 25,000 UNITS/500 ML BAG IV SCH (19:32)
[2022-12-11] MEDS: Morphine 2 MG/ML SYRINGE IV PRN (20:25)
[2022-12-12] MEDS: metroNIDAZOLE IV 500 MG/100ML 500 MG/100 ML BAG IVPB SCH ×4 (00:13→15:19)
[2022-12-12 06:17] LABS: Mean Corpuscular Hemoglobin 28.6 pg (27-33); Mean Corpuscular Hgb Conc 32.3 g/dL (31-36); Mean Corpuscular Volume 88.5 fL (80-97); Mean Platelet Volume 9.7 fL (7.5-11.2); Platelet Count 200 10^3/uL (150-450); Red Blood Count 3.16 10^6/uL (4.06-5.63); Red Cell Distribution Width 15.8 % (12-17); White Blood Count 43.4 10^3/uL (3.6-10.2)
[2022-12-12 06:36] LABS: Calcium 8.6 mg/dL (8.6-10.3); Creatinine, Serum 1.49 mg/dL (0.67-1.17); Potassium 4.3 mmol/L (3.5-5.0); eGFR CKD-EPI 49.2 (>60)
[2022-12-12 07:16] LABS: ABS Basophils 0.1 10^3/uL (0.0-0.1); ABS Eosinophils 0.2 10^3/uL (0.0-0.5); ABS Lymphocytes 2.1 10^3/uL (1.0-4.8); ABS Neutrophils 37.1 10^3/uL (1.5-7.6); ABS Nucleated RBC 0.02 10^3/ul; Eosinophil % 0.4 %; Lymphocyte % 4.8 %
[2022-12-12] MEDS ORDERED: Cefepime 2 GM in Dextrose 2 GM/50 ML BAG IV SCH (08:00)
[2022-12-12] MEDS: Morphine 2 MG/ML SYRINGE IV PRN (08:50)
[2022-12-12] MEDS: Lactulose 30 ml UDC PO SCH ×2 (11:08→22:38)
[2022-12-12] MEDS ORDERED: cefTRIAXone 1 gm/50 mL D5W 1 GM/50 ML BAG IV SCH (16:00)
[2022-12-12] MEDS ORDERED: Vancomycin Trough Check NOTE FOLLOW UP ONE (20:30)
[2022-12-13] MEDS: metroNIDAZOLE IV 500 MG/100ML 500 MG/100 ML BAG IVPB SCH ×4 (00:37→23:51)
[2022-12-13 05:37] LABS: Hematocrit 28.2 % (38-53); Hemoglobin 9.2 g/dL (13.2-16.3); Mean Corpuscular Hemoglobin 28.7 pg (27-33); Mean Corpuscular Hgb Conc 32.5 g/dL (31-36); Mean Corpuscular Volume 88.3 fL (80-97); Mean Platelet Volume 8.8 fL (7.5-11.2); Platelet Count 192 10^3/uL (150-450); Red Blood Count 3.19 10^6/uL (4.06-5.63); Red Cell Distribution Width 15.4 % (12-17); White Blood Count 48.3 10^3/uL (3.6-10.2)
[2022-12-13 05:42] LABS: ABS Basophils 0.1 10^3/uL (0.0-0.1); ABS Lymphocytes 1.9 10^3/uL (1.0-4.8); ABS Monocytes 4.6 10^3/uL (0.0-1.1); ABS Neutrophils 41.8 10^3/uL (1.5-7.6); Eosinophil % 0.1 %; Lymphocyte % 3.9 %
[2022-12-13] MEDS: Lactulose 30 ml UDC PO SCH ×3 (09:47→20:30)
[2022-12-13] MEDS ORDERED: Lorazepam PYXIS KEY PRN (11:20)
[2022-12-13] MEDS ORDERED: LORazepam 2 mg VIAL 1 ml IV PUSH ONE (11:20)
[2022-12-14 05:25] LABS: Hematocrit 28.2 % (38-53); Mean Corpuscular Hemoglobin 28.6 pg (27-33); Mean Corpuscular Hgb Conc 31.9 g/dL (31-36); Mean Corpuscular Volume 89.5 fL (80-97); Mean Platelet Volume 8.8 fL (7.5-11.2); Platelet Count 164 10^3/uL (150-450); Red Blood Count 3.15 10^6/uL (4.06-5.63); Red Cell Distribution Width 15.7 % (12-17); White Blood Count 44.6 10^3/uL (3.6-10.2)
[2022-12-14 05:35] LABS: ABS Basophils 0.1 10^3/uL (0.0-0.1); ABS Eosinophils 0.1 10^3/uL (0.0-0.5); ABS Lymphocytes 1.9 10^3/uL (1.0-4.8); ABS Monocytes 3.9 10^3/uL (0.0-1.1); ABS Neutrophils 38.7 10^3/uL (1.5-7.6); ABS Nucleated RBC 0.02 10^3/ul; Eosinophil % 0.2 %; Lymphocyte % 4.3 %
[2022-12-14 05:40] LABS: Creatinine, Serum 1.59 mg/dL (0.67-1.17); eGFR CKD-EPI 45.6 (>60)
[2022-12-14] MEDS: Lactulose 30 ml UDC PO SCH (10:02)
[2022-12-14] MEDS: metroNIDAZOLE IV 500 MG/100ML 500 MG/100 ML BAG IVPB SCH ×3 (10:02→23:54)
[2022-12-15] MEDS: metroNIDAZOLE IV 500 MG/100ML 500 MG/100 ML BAG IVPB SCH ×2 (09:46→15:53)
[2022-12-15] MEDS: Lactulose 30 ml UDC PO SCH (10:06)
[2022-12-16] MEDS: metroNIDAZOLE IV 500 MG/100ML 500 MG/100 ML BAG IVPB SCH ×2 (00:40→08:44)
[2022-12-16] MEDS: Lactulose 30 ml UDC PO SCH (08:51)
[2022-12-17] MEDS: Lactulose 30 ml UDC PO SCH (06:59)
[2022-12-17 10:22] VITALS: BP 122/71
== END 2022-12-17 13:28 | DRG 872 ==
LOC: ED 18:18 → EDHOLD 18:18 → SUATTDRO 21:29 → EDHOLD 12-10 01:53 → MEDTELE 12-10 02:06 → SUATTDRO 12-10 10:30
PROVIDERS: ADMIT Hospitalist; ATTEND Internal Medicine